=== PATIENT | male | born 1965 | race Caucasian/White ===

== ENCOUNTER 2019-05-27 13:35 | Emergency (ER) | payer SELFPAY ==
[2019-05-27 14:12] LABS: Absolute Lymphocytes (CBC) 0.9 K/uL (0.7-4.9); Basophils % 0.5 % (0-1.3); Eosinophils % 2.3 % (0-4.4); Hematocrit 39.8 % (39.6-49.0); Lymphocytes % 17.2 % (15.3-44.8); MPV 9.2 fL (7.6-11.3); Monocytes % 11.6 % (3.3-12.3); RBC Red Blood Cell Count 4.38 M/uL (4.33-5.43)
[2019-05-27] MEDS ORDERED: NA CHLORIDE 0.9% 1,000 ML ONE (14:13)
[2019-05-27 14:28] LABS: Potassium 3.2 mmol/L (3.5-5.1)
--- NOTE | 2019-05-27 15:06 | EDPHYS ---
Physician Documentation [facility] Name: Reggie Snow Age: 53 yrs Sex: Male : 1965 Arrival Date: 05/27/2019 Time: 13:38 Bed 7 Private MD: ED Physician Cory Coates HPI: 05/27 14:58 This 53 yrs old Male presents to ER via EMS with complaints of Altered Mental gs Status. 14:58 The patient presents with decreased mental status. Onset: The symptoms/episode gs began/occurred gradually, today. Possible causes: drug use, heat exhaustion was in heat and no ac in house. Associated signs and symptoms: The patient has no apparent associated signs or symptoms. Current symptoms: In the emergency department the patient's symptoms have resolved, the patient is alert and fully oriented, has normal speech, has normal responsiveness, has no confusion. The patient has experienced similar episodes in the past, a few times. The patient has not recently seen a physician. 17:47 Onset: The symptoms/episode began/occurred discussed with daughter and onset of gs symptoms last night. Historical: - Allergies: 13:41 TETRACYCLINES; sv 13:41 Azithromycin; sv - Home Meds: 14:31 benztropine 1 mg Oral tab 1 tab 2 times per day [Active]; risperidone 2 mg oral tab 1 iw tab once daily [Active]; bupropion HCl 300 mg Oral Tb24 1 tab once daily [Active]; - PMHx: 13:41 None; sv - PSHx: 13:41 Tonsillectomy; sv - Immunization history:: Adult Immunizations unknown. - Social history:: The patient lives at home, Smoking status: Patient/guardian denies using tobacco. - Ebola Screening: : No symptoms or risks identified at this time. ROS: 14:58 All other systems are negative. gs Exam: 14:58 Head/Face: Normocephalic, atraumatic. Eyes: Pupils equal round and reactive to light, gs extra-ocular motions intact. Lids and lashes normal. Conjunctiva and sclera are non-icteric and not injected. Cornea within normal limits. Periorbital areas with no swelling, redness, or edema. ENT: Nares patent. No nasal discharge, no septal abnormalities noted. Tympanic membranes are normal and external auditory canals are clear. Oropharynx with no redness, swelling, or masses, exudates, or evidence of obstruction, uvula midline. Mucous membranes moist. Neck: Trachea midline, no thyromegaly or masses palpated, and no cervical lymphadenopathy. Supple, full range of motion without nuchal rigidity, or vertebral point tenderness. No Meningismus. Chest/axilla: Normal chest wall appearance and motion. Nontender with no deformity. No lesions are appreciated. Respiratory: Lungs have equal breath sounds bilaterally, clear to auscultation and percussion. No rales, rhonchi or wheezes noted. No increased work of breathing, no retractions or nasal flaring. Abdomen/GI: Soft, non-tender, with normal bowel sounds. No distension or tympany. No guarding or rebound. No evidence of tenderness throughout. Back: No spinal tenderness. No costovertebral tenderness. Full range of motion. Skin: Warm, dry with normal turgor. Normal color with no rashes, no lesions, and no evidence of cellulitis. MS/ Extremity: Pulses equal, no cyanosis. Neurovascular intact. Full, normal range of motion. Neuro: Awake and alert, GCS 15, oriented to person, place, time, and situation. Cranial nerves II-XII grossly intact. Motor strength 5/5 in all extremities. Sensory grossly intact. Cerebellar exam normal. Normal gait. 14:58 Constitutional: The patient appears alert, awake. 14:58 Cardiovascular: Rate: tachycardic, Rhythm: regular, Pulses: no pulse deficits are appreciated. Vital Signs: 13:48 BP 134 / 75; Pulse 130; Resp 16; Temp 98.4(O); Pulse Ox 98% on R/A; tr5 14:42 BP 114 / 85; Pulse 105; Resp 17; Pulse Ox 96% ; sv 15:30 BP 130 / 96; Pulse 100; Resp 18; Pulse Ox 100% on R/A; tr5 17:00 BP 122 / 88; Pulse 99; Resp 18; Pulse Ox 99% ; sv MDM: 13:49 Patient medically screened. 14:58 Differential Diagnosis: overdose, volume depletion, heat exhaustion. Data reviewed: vital signs, nurses notes, lab test result(s), EKG. 17:47 Counseling: I had a detailed discussion with the patient and/or guardian regarding: the historical points, exam findings, and any diagnostic results supporting the discharge/admit diagnosis, radiology results, no stroke by mri pt awake alert most likely exacerbation psychosis family good with plan to follow up with [facility] pt is calm walking normally family comfortable with plan. Response to treatment: the patient's symptoms have markedly improved after treatment, the patient's condition has returned to base line. 05/27 13:38 Order name: glucometer results - FOR PT WITH NO ID; Complete Time: 15:04 05/27 13:54 Order name: CBC with Diff; Complete Time: 15:04 05/27 13:54 Order name: Basic Metabolic Panel; Complete Time: 15:04 05/27 13:54 Order name: CPK; Complete Time: 15:04 05/27 15:29 Order name: Troponin (emerg Dept Use Only); Complete Time: 16:27 05/27 15:29 Order name: Head Brain Wo Cont CT; Complete Time: 16:27 05/27 16:28 Order name: MRI - Brain Wo Cont; Complete Time: 17:31 eb Administered Medications: 14:00 Drug: NS 0.9% 1000 ml Route: IV; Rate: 1 bolus; Site: left antecubital; tr5 14:45 Follow up: Response: No adverse reaction; IV Status: Completed infusion tr5 Point of Care Testing: Blood Glucose: 13:48 Blood Glucose: 122 mg/dL; tr5 Ranges: Critical Glucose Levels:Adult <50 mg/dl or >400 mg/dl <40 mg/dl or >180 mg/dl Disposition: 05/27/19 17:56 Discharged to Home. Impression: Schizophrenia. - Condition is Stable. - Discharge Instructions: Schizophrenia. - Medication Reconciliation Form, Thank You Letter, Antibiotic Education, Prescription Opioid Use form. - Follow up: Private Physician; When: 1 - 2 days; Reason: Re-evaluation by your physician. Signatures: Dispatcher [employer] Alcira Brownlee RN RN sv Williams, Irene, RN RN Cory Coates MD MD Ki Gonzáles RN RN tr5 Corrections: (The following items were deleted from the chart) 15:28 15:05 05/27/2019 15:05 Discharged to Home. Impression: Heat exhaustion, unspecified. Condition is Stable. Forms are Medication Reconciliation Form, Thank You Letter, Antibiotic Education, Prescription Opioid Use. Follow up: Private Physician; When: 2 - 3 days; Reason: Re-evaluation by your physician. 18:46 17:56 05/27/2019 17:56 Discharged to Home. Impression: Schizophrenia. Condition is sv Stable. Forms are Medication Reconciliation Form, Thank You Letter, Antibiotic Education, Prescription Opioid Use. Follow up: Private Physician; When: 1 - 2 days; Reason: Re-evaluation by your physician.
--- NOTE | 2019-05-27 15:06 | ER ---
Nurse's Notes [facility] Name: Reggie Snow Age: 53 yrs Sex: Male : 1965 Arrival Date: 05/27/2019 Time: 13:38 Bed 7 Private MD: Diagnosis: Schizophrenia Presentation: 05/27 13:38 Presenting complaint: EMS states: Pt was found wondering around apartment complex where sv he lives with his mother. Pt is and has been experiencing some hallucinations and pt's mother states that she thinks he might have taken something black that might be heroin but it can't be confirmed. Pt's mother reports that he does take some psych medications and they make him "crazy" sometimes. Pt was AAOx2 and had a pulse of 160. 500cc bolus given in route which brought his pulse to 130. Transition of care: patient was not received from another setting of care. Onset of symptoms is unknown. Risk Assessment: Do you want to hurt yourself or someone else? Unable to obtain. Initial Sepsis Screen: Does the patient meet any 2 criteria? Altered Mental Status. HR > 90 bpm. No. Patient's initial sepsis screen is negative. Does the patient have a suspected source of infection? No. Patient's initial sepsis screen is negative. Care prior to arrival: None. 13:38 Method Of Arrival: EMS: [facility] 13:38 Acuity: ERICK 3 sv Triage Assessment: 13:43 General: Appears unkempt, Behavior is inappropriate for age. Pain: Denies pain. EENT: sv No signs and/or symptoms were reported regarding the EENT system. Neuro: Level of Consciousness is awake, alert, confused, Oriented to person, place, Tip Tester are equal bilaterally Moves all extremities. Cardiovascular: Heart tones present Bruits absent Capillary refill < 3 seconds Pulses are all present. Edema is absent. Chest pain is denied. Respiratory: Airway is patent Breath sounds are clear bilaterally. GI: No signs and/or symptoms were reported involving the gastrointestinal system. : No signs and/or symptoms were reported regarding the genitourinary system. Derm: No signs and/or symptoms reported regarding the dermatologic system. Musculoskeletal: Capillary refill < 3 seconds, Range of motion: intact in all extremities. Historical: - Allergies: 13:41 TETRACYCLINES; sv 13:41 Azithromycin; sv - Home Meds: 14:31 benztropine 1 mg Oral tab 1 tab 2 times per day [Active]; risperidone 2 mg oral tab 1 iw tab once daily [Active]; bupropion HCl 300 mg Oral Tb24 1 tab once daily [Active]; - PMHx: 13:41 None; sv - PSHx: 13:41 Tonsillectomy; sv - Immunization history:: Adult Immunizations unknown. - Social history:: The patient lives at home, Smoking status: Patient/guardian denies using tobacco. - Ebola Screening: : No symptoms or risks identified at this time. Screenin:48 Abuse screen: Denies threats or abuse. Nutritional screening: No deficits noted. tr5 Tuberculosis screening: No symptoms or risk factors identified. Fall Risk No fall in past 12 months (0 pts). No secondary diagnosis (0 pts). IV access (20 points). Ambulatory Aid- None/Bed Rest/Nurse Assist (0 pts). Gait- Normal/Bed Rest/Wheelchair (0 pts) Mental Status- Overestimates/Forgets Limitations (15 pts.). Total Dobbins Fall Scale indicates Low Risk Score (25-44 pts). Fall prevention measures have been instituted. Side Rails Up X 2 Frequent Obs/Assesments occuring. Assessment: 13:46 General: General: Appears unkempt, Behavior is inappropriate for age. tr5 13:46 Pain: Denies pain. Neuro: Level of Consciousness is awake, alert, confused, Oriented to tr5 person, place, Tip Tester are equal bilaterally Moves all extremities. Cardiovascular: Denies chest pain, Heart tones present Capillary refill < 3 seconds Pulses are all present. Edema is absent. Respiratory: Airway is patent Breath sounds are clear bilaterally. GI: No signs and/or symptoms were reported involving the gastrointestinal system. : No signs and/or symptoms were reported regarding the genitourinary system. EENT: No signs and/or symptoms were reported regarding the EENT system. Derm: No signs and/or symptoms reported regarding the dermatologic system. Musculoskeletal: Capillary refill < 3 seconds. 15:26 Reassessment: Dr. Coates at bedside discussing pt's plan of care with family members. tr5 Further testing to be ordered. 16:11 Reassessment: Patient appears in no apparent distress at this time. tr5 18:43 Reassessment: Patient appears in no apparent distress at this time. Patient and/or sv family updated on plan of care and expected duration. Pain level reassessed. Patient is alert, oriented x 3, equal unlabored respirations, skin warm/dry/pink. Vital Signs: 13:48 BP 134 / 75; Pulse 130; Resp 16; Temp 98.4(O); Pulse Ox 98% on R/A; tr5 14:42 BP 114 / 85; Pulse 105; Resp 17; Pulse Ox 96% ; sv 15:30 BP 130 / 96; Pulse 100; Resp 18; Pulse Ox 100% on R/A; tr5 17:00 BP 122 / 88; Pulse 99; Resp 18; Pulse Ox 99% ; sv ED Course: 13:35 Initial lab(s) drawn, by me. Maintain EMS IV. Dressing intact. Good blood return noted. sv Site clean \\T\\ dry. Gauge \\T\\ site: 18G L AC. 13:38 Patient arrived in ED. sv 13:40 Cory Coates MD is Attending Physician. jr8 13:40 Patient has correct armband on for positive identification. Bed in low position. Call sv light in reach. Side rails up X2. stripper soft plastic on. Pulse ox on. NIBP on. Door closed. Head of bed elevated. 13:43 Triage completed. sv 13:43 Arm band placed on. EKG completed in triage. Results shown to MD. sv 13:45 iK Gonzáles, RN is Primary Nurse. tr5 15:50 CT completed. Patient tolerated procedure well. Patient moved to CT via stretcher. em2 15:52 Head Brain Wo Cont CT In Process Unspecified. EDMS 15:52 Patient moved back from CT. em2 16:50 MRI - Brain Wo Cont In Process Unspecified. EDMS 18:44 No provider procedures requiring assistance completed. IV discontinued, Pt removed his sv own IV. Administered Medications: 14:00 Drug: NS 0.9% 1000 ml Route: IV; Rate: 1 bolus; Site: left antecubital; tr5 14:45 Follow up: Response: No adverse reaction; IV Status: Completed infusion tr5 Point of Care Testing: Blood Glucose: 13:48 Blood Glucose: 122 mg/dL; tr5 Ranges: Outcome: 15:05 Discharge ordered by . gs 17:56 Discharge ordered by . gs 18:45 Discharged to home ambulatory, with family. sv 18:45 Condition: stable 18:45 Discharge instructions given to patient, family, Instructed on discharge instructions, follow up and referral plans. Demonstrated understanding of instructions, follow-up care. 18:46 Patient left the ED. sv Signatures: Dispatcher [employer] Alcira Brownlee RN RN sv Williams, Irene, RN RN iw Roszak, Josh, PA PA jr8 Montes, Enrique 2 Cory Coates MD MD gs Rodriguez, Tommie, RN RN tr5 Corrections: (The following items were deleted from the chart) 13:46 13:38 Presenting complaint: EMS states: Pt was found wondering around apartment complex tr5 where he lives with his mother. Pt is and has been experiencing some hallucinations and pt's mother states that she thinks he might have taken something black that might be heroin but it can't be confirmed. Pt was AAOx2 and had a pulse of 160. 500cc bolus given in route which brought his pulse to 130. sv 13:48 13:46 General: tr5 tr5
--- NOTE | 2019-05-27 16:12 | RAD REPORT ---
EXAM DESCRIPTION: CT - Head Brain Wo Cont - 05/27/2019 3:52 pm CLINICAL HISTORY: Alteration of awareness/confusion COMPARISON: None TECHNIQUE: Computed axial tomography of the head was obtained. IV contrast was not requested. All CT scans are performed using dose optimization technique as appropriate and may include automated exposure control or mA/KV adjustment according to patient size. FINDINGS: An intracranial bleed is not seen . The ventricles are normal in caliber. No extra-axial fluid collection is noted. Fluid within the sinuses/ mastoids is not seen. IMPRESSION: No acute intracranial abnormality is seen. If patient's symptoms persist MRI of the bra in would be recommended.
--- NOTE | 2019-05-27 17:06 | RAD REPORT ---
EXAM DESCRIPTION: MRI - Brain Wo Cont - 05/27/2019 4:57 pm CLINICAL HISTORY: confusion COMPARISON: May 27, [address] TECHNIQUE: Axial, sagittal, and coronal magnetic images of the brain were obtained. Contrast was not requested FINDINGS: 8 millimeter area of increased signal within the deep white matter of the left frontal lob e is nonspecific but may represent ischemic changes secondary to small vessel disease. . Diffusion-weighted/ADC mapping does not reveal evidence of acute infarction. The ventricles are normal caliber. An extra-axial fluid collection is not present The sinuses and mastoids are clear. IMPRESSION: No acute abnormality displayed
[2019-05-27 19:26] VITALS: TEMP 98.4
[2019-05-27 19:30] VITALS: BP 122/88; O2SAT 99
--- NOTE | 2019-05-28 08:27 | EKG ---
Test Date: 2019-05-27 Test Time: 13:38:05 [employer] Teacher: MIRELA MEASUREMENT RESULTS: Intervals: Rate: 128 GA: 152 QRSD: 90 QT: 300 QTc: 438 [place]: P: 69 GA: 152 QRS: -22 T: 67 INTERPRETIVE STATEMENTS: Sinus tachycardia Otherwise normal ECG Compared to ECG 06/23/2015 12:32:21 Sinus rhythm no longer present Sinus arrhythmia no longer present Electronically Signed On 05-28-19 08:25:01 CDT by Gaetano Henry
== END 2019-05-27 18:46 | disposition home or self-care (01) ==
LOC: ER 13:35
DX: F20.9 Schizophrenia, unspecified (principal); Z88.1 Allergy status to other antibiotic agents
CPT/HCPCS: 36415; 70450; 70551; 80048; 82550; 82962; 84484; 85025; 93005; 96360; 99285; J7030

== ENCOUNTER 2019-07-12 03:53 | Emergency (ER) | payer SELFPAY ==
[2019-07-12 04:58] LABS: Basophils % 0.7 % (0-1.3); Hematocrit 40.4 % (39.6-49.0); Lymphocytes % 25.9 % (15.3-44.8); MPV 8.7 fL (7.6-11.3); RBC Red Blood Cell Count 4.43 M/uL (4.33-5.43)
[2019-07-12 05:19] LABS: Albumin 3.9 g/dL (3.4-5.0); Bilirubin Direct 0.2 mg/dL (0-0.2); Bilirubin Total 0.6 mg/dL (0.2-1.0); Potassium 3.9 mmol/L (3.5-5.1); Protein, Total 7.2 g/dL (6.4-8.2)
[2019-07-12 05:54] LABS: Calcium Oxalate Crystals- Ur FEW (NONE SEEN); Urine Bacteria <20 /HPF (NONE SEEN); Urine Culture Reflex Order NOT NEEDED; Urine RBC NONE SEEN /HPF (NONE SEEN)
[2019-07-12 06:09] LABS: Urine Blood NEGATIVE (NEG); Urine Glucose NEGATIVE (NEG); Urine Protein NEGATIVE (NEG); Urine pH 8.5 (5.0-7.0)
--- NOTE | 2019-07-12 06:31 | ER ---
Nurse's Notes [facility] Name: Reggie Snow Age: 54 yrs Sex: Male : 1965 Arrival Date: 07/12/2019 Time: 04:17 Bed 20 Private MD: Diagnosis: Lower abdominal pain, unspecified Presentation: 07/12 03:55 Presenting complaint: EMS states: "We were toned for abdominal pain, distention and cc3 belching that started just an hour ago prior to our arrival" Patient said he also has chest pain and right flank pain and took low dose Aspirin at 0300H this morning at home. Transition of care: patient was not received from another setting of care. Onset of symptoms was July 12, 2019. Risk Assessment: Do you want to hurt yourself or someone else? Patient reports no desire to harm self or others. Initial Sepsis Screen: Does the patient meet any 2 criteria? No. Patient's initial sepsis screen is negative. Does the patient have a suspected source of infection? No. Patient's initial sepsis screen is negative. Care prior to arrival: Medication(s) given: Low dose Aspirin taken at 0300H this morning at home. 03:55 Method Of Arrival: EMS: [facility] cc3 03:55 Acuity: ERICK 3 cc3 Triage Assessment: 03:55 General: Appears in no apparent distress. uncomfortable, Behavior is cooperative, cc3 anxious. Pain: Complains of pain in bilateral upper and lower abdominal quadrants, chest, right flank Pain currently is 8 out of 10 on a pain scale. Quality of pain is described as aching, Pain began 1 hour ago. EENT: No signs and/or symptoms were reported regarding the EENT system. Neuro: Level of Consciousness is awake, alert, obeys commands, Oriented to person, place, time, situation, Appropriate for age. Cardiovascular: Capillary refill < 3 seconds Patient's skin is warm and dry. Chest pain is located in chest wall began 1 hour prior to arrival. Respiratory: Airway is patent Respiratory effort is even, unlabored, Respiratory pattern is regular, symmetrical. GI: Parent/caregiver reports the patient having bloating, gaseousness, pain, since an hour ago. : No signs and/or symptoms were reported regarding the genitourinary system. Derm: Skin is intact, is healthy with good turgor, Skin is pink, warm \\T\\ dry. normal. Musculoskeletal: Circulation, motion, and sensation intact. Range of motion: intact in all extremities. Historical: - Allergies: 03:55 Azithromycin; cc3 03:55 TETRACYCLINES; cc3 - Home Meds: 03:55 benztropine 1 mg Oral tab 1 tab 2 times per day [Active]; bupropion HCl 300 mg Oral cc3 Tb24 1 tab once daily [Active]; risperidone 2 mg Oral tab 1 tab once daily [Active]; - PMHx: 03:55 Anxiety; Hypertension; cc3 - Immunization history:: Adult Immunizations not up to date. - Social history:: Smoking status: Patient/guardian denies using tobacco, but has a distant history of tobacco abuse. - Ebola Screening: : No symptoms or risks identified at this time. Screenin:55 Abuse screen: Denies threats or abuse. Denies injuries from another. Nutritional cc3 screening: No deficits noted. Tuberculosis screening: No symptoms or risk factors identified. Fall Risk Ambulatory Aid- None/Bed Rest/Nurse Assist (0 pts). Gait- Normal/Bed Rest/Wheelchair (0 pts) Mental Status- Oriented to own ability (0 pts). Assessment: 03:55 General: see triage assessment. cc3 04:30 Reassessment: Patient appears in no apparent distress at this time. Patient and/or aa1 family updated on plan of care and expected duration. Pain level reassessed. Patient is alert, oriented x 3, equal unlabored respirations, skin warm/dry/pink. 05:12 Reassessment: Patient appears in no apparent distress at this time. Patient and/or aa1 family updated on plan of care and expected duration. Pain level reassessed. Patient is alert, oriented x 3, equal unlabored respirations, skin warm/dry/pink. Patient came back from CT scan department, awaiting result. 06:50 Reassessment: Patient appears in no apparent distress at this time. Patient and/or cc3 family updated on plan of care and expected duration. Pain level reassessed. Patient is alert, oriented x 3, equal unlabored respirations, skin warm/dry/pink. Dr. Coates discharged the patient home with prescription given. IV cannula removed and patient left ER vitally stable and ambulatory with family. No valuables left in the patient's room. Patient denies pain at this time. Patient states feeling better. Patient states symptoms have improved. Vital Signs: 03:55 BP 132 / 82; Pulse 79; Resp 22 S; Temp 97.8(O); Pulse Ox 100% on R/A; Weight 61.23 kg cc3 (R); Height 6 ft. 2 in. (187.96 cm) (R); Pain 8/10; 04:15 BP 154 / 90; Pulse 79; Resp 18 S; Pulse Ox 100% on R/A; aa1 05:25 BP 134 / 88; Pulse 79; Resp 17 S; Pulse Ox 98% on R/A; aa1 06:11 BP 125 / 81; Pulse 80; Resp 18 S; Pulse Ox 98% on R/A; cc3 03:55 Body Mass Index 17.33 (61.23 kg, 187.96 cm) cc3 ED Course: 03:55 Patient has correct armband on for positive identification. Placed in gown. Bed in low cc3 position. Call light in reach. Side rails up X2. injection maintenance technician on. Pulse ox on. NIBP on. 03:55 Arm band placed on right wrist. Patient notified of wait time. EKG completed in triage. cc3 Results shown to MD. 04:17 Patient arrived in ED. cc3 04:20 Inserted saline lock: 20 gauge in left antecubital area, using aseptic technique. Blood aa1 collected. 04:22 Triage completed. cc3 04:30 Blossom Majano is Primary Nurse. cc3 04:40 Cory Coates MD is Attending Physician. 05:18 CT completed. Patient tolerated procedure well. Patient moved to CT via stretcher. Patient moved back from CT. 05:28 CT Stone Protocol In Process Unspecified. EDMS 06:50 No provider procedures requiring assistance completed. IV discontinued, intact, cc3 bleeding controlled, No redness/swelling at site. Pressure dressing applied. Administered Medications: No medications were administered Outcome: 06:30 Discharge ordered by MD. gs 06:45 Discharged to home ambulatory, with family. cc3 06:45 Condition: stable 06:45 Discharge instructions given to patient, family, Instructed on discharge instructions, follow up and referral plans. medication usage, Demonstrated understanding of instructions, follow-up care, medications, Prescriptions given X 1. 06:46 Patient left the ED. cc3 Signatures: Dispatcher [employer] EDMS Geni Gaxiola RN RN aa1 Isai Huff Gregory, MD MD gs Cordel, Charlene cc3 Corrections: (The following items were deleted from the chart) 04:29 03:55 Presenting complaint: EMS states: "Abdominal pain, distention and belching that cc3 started just 30 minutes ago" Patient said he also has chest pain and right flank pain. cc3 04:29 03:55 Pain: Complains of pain in bilateral upper and lower abdominal quadrants, chest, cc3 right flank Pain currently is 8 out of 10 on a pain scale. Quality of pain is described as aching, Pain began 30 min ago. cc3 04:35 03:55 Presenting complaint: EMS states: "Abdominal pain, distention and belching that cc3 started just an hour ago prior to our arrival" Patient said he also has chest pain and right flank pain. cc3 04:54 04:20 Inserted saline lock: 20 gauge in left antecubital area, using aseptic technique. aa1 cc3
--- NOTE | 2019-07-12 06:31 | EDPHYS ---
Physician Documentation [facility] Name: Reggie Snow Age: 54 yrs Sex: Male : 1965 Arrival Date: 07/12/2019 Time: 04:17 Bed 20 Private MD: ED Physician Cory Coates HPI: 07/12 06:10 This 54 yrs old Male presents to ER via EMS with complaints of Abdominal Pain.gs 06:10 The patient presents with abdominal pain in the lower abdomen. Onset: The gs symptoms/episode began/occurred gradually, this morning. The symptoms radiate to epigastric area. The symptoms are described as burning. Modifying factors: The symptoms are alleviated by BURPING. Severity of pain: At its worst the pain was severe in the emergency department the pain has improved markedly. The patient has experienced similar episodes in the past, a few times. Historical: - Allergies: 03:55 Azithromycin; cc3 03:55 TETRACYCLINES; cc3 - Home Meds: 03:55 benztropine 1 mg Oral tab 1 tab 2 times per day [Active]; bupropion HCl 300 mg Oral cc3 Tb24 1 tab once daily [Active]; risperidone 2 mg Oral tab 1 tab once daily [Active]; - PMHx: 03:55 Anxiety; Hypertension; cc3 - Immunization history:: Adult Immunizations not up to date. - Social history:: Smoking status: Patient/guardian denies using tobacco, but has a distant history of tobacco abuse. - Ebola Screening: : No symptoms or risks identified at this time. ROS: 06:10 All other systems are negative. gs Exam: 06:10 Head/Face: Normocephalic, atraumatic. Eyes: Pupils equal round and reactive to light, gs extra-ocular motions intact. Lids and lashes normal. Conjunctiva and sclera are non-icteric and not injected. Cornea within normal limits. Periorbital areas with no swelling, redness, or edema. ENT: Nares patent. No nasal discharge, no septal abnormalities noted. Tympanic membranes are normal and external auditory canals are clear. Oropharynx with no redness, swelling, or masses, exudates, or evidence of obstruction, uvula midline. Mucous membranes moist. Neck: Trachea midline, no thyromegaly or masses palpated, and no cervical lymphadenopathy. Supple, full range of motion without nuchal rigidity, or vertebral point tenderness. No Meningismus. Chest/axilla: Normal chest wall appearance and motion. Nontender with no deformity. No lesions are appreciated. Cardiovascular: Regular rate and rhythm with a normal S1 and S2. No gallops, murmurs, or rubs. Normal PMI, no JVD. No pulse deficits. Respiratory: Lungs have equal breath sounds bilaterally, clear to auscultation and percussion. No rales, rhonchi or wheezes noted. No increased work of breathing, no retractions or nasal flaring. Back: No spinal tenderness. No costovertebral tenderness. Full range of motion. Skin: Warm, dry with normal turgor. Normal color with no rashes, no lesions, and no evidence of cellulitis. MS/ Extremity: Pulses equal, no cyanosis. Neurovascular intact. Full, normal range of motion. Neuro: Awake and alert, GCS 15, oriented to person, place, time, and situation. Cranial nerves II-XII grossly intact. Motor strength 5/5 in all extremities. Sensory grossly intact. Cerebellar exam normal. Normal gait. 06:10 Constitutional: The patient appears in no acute distress, alert, awake. 06:10 ECG was reviewed by the Attending Physician. Vital Signs: 03:55 BP 132 / 82; Pulse 79; Resp 22 S; Temp 97.8(O); Pulse Ox 100% on R/A; Weight 61.23 kg cc3 (R); Height 6 ft. 2 in. (187.96 cm) (R); Pain 8/10; 04:15 BP 154 / 90; Pulse 79; Resp 18 S; Pulse Ox 100% on R/A; aa1 05:25 BP 134 / 88; Pulse 79; Resp 17 S; Pulse Ox 98% on R/A; aa1 06:11 BP 125 / 81; Pulse 80; Resp 18 S; Pulse Ox 98% on R/A; cc3 03:55 Body Mass Index 17.33 (61.23 kg, 187.96 cm) cc3 MDM: 04:40 Patient medically screened. gs 06:10 Differential diagnosis: AAA, bowel obstruction, diverticulitis, non-specific abd pain. gs Data reviewed: vital signs, nurses notes. Data reviewed: lab test result(s), EKG, radiologic studies. Counseling: I had a detailed discussion with the patient and/or guardian regarding: the historical points, exam findings, and any diagnostic results supporting the discharge/admit diagnosis, lab results, radiology results. Response to treatment: the patient's symptoms have resolved after treatment, the patient's condition has returned to base line. 07/12 04:41 Order name: Basic Metabolic Panel; Complete Time: 05:51 07/12 04:41 Order name: CBC with Diff; Complete Time: 05:51 07/12 04:41 Order name: Hepatic Function; Complete Time: 05:51 07/12 04:41 Order name: Lipase; Complete Time: 05:51 07/12 04:41 Order name: Urine Microscopic Only; Complete Time: 05:55 07/12 05:37 Order name: Urine Dipstick--Ancillary (enter results); Complete Time: 06:09 ct 07/12 04:41 Order name: IV Saline Lock; Complete Time: 04:41 07/12 04:41 Order name: Labs collected and sent; Complete Time: 04:53 07/12 04:41 Order name: Urine Dipstick-Ancillary (obtain specimen); Complete Time: 05:39 07/12 04:41 Order name: CT Stone Protocol EC:10 Rate is 85 beats/min. Rhythm is regular. NV interval is normal. QRS interval is normal. gs T waves are Normal. No ST changes noted. Clinical impression: Normal ECG. Interpreted by me. Administered Medications: No medications were administered Disposition: 07/12/19 06:30 Discharged to Home. Impression: Lower abdominal pain, unspecified. - Condition is Stable. - Discharge Instructions: Abdominal Pain, Adult. - Prescriptions for Miralax 17 gram/dose Oral - take 1 packet by ORAL route once daily As needed dilute powder in 8 ounces of water or juice; 1 bottle. - Medication Reconciliation Form, Thank You Letter, Antibiotic Education, Prescription Opioid Use form. - Follow up: Private Physician; When: 2 - 3 days; Reason: Re-evaluation by your physician. Signatures: Dispatcher [employer] EDIN Cory Coates MD MD gs Cordel, Charlene cc3 Corrections: (The following items were deleted from the chart) 06:46 06:30 07/12/2019 06:30 Discharged to Home. Impression: Lower abdominal pain, cc3 unspecified. Condition is Stable. Forms are Medication Reconciliation Form, Thank You Letter, Antibiotic Education, Prescription Opioid Use. Follow up: Private Physician; When: 2 - 3 days; Reason: Re-evaluation by your physician. gs
[2019-07-12 06:58] VITALS: TEMP 97.8
[2019-07-12 07:01] VITALS: O2SAT 98
[2019-07-12 07:03] VITALS: BP 125/81
--- NOTE | 2019-07-12 09:45 | RAD REPORT ---
EXAM DESCRIPTION: RENETTA BLAIR [id number] - Stone Protocol CT ABDOMEN AND PELVIS WITHOUT CONTRAST. 07/12/2019 CLINICAL HISTORY: Abdominal pain. COMPARISON: None. TECHNIQUE: Axial unenhanced CT imaging of the abdomen and pelvis performed. Reformatted coronal and sagittal images reviewed. A dose reduction technique was utilized with automated exposure control according to patient size. FINDINGS: LOWER THORAX: Clear lung bases. Normal heart size. No pericardial fluid. ABDOMEN: LIVER/GALLBLADDER: Normal liver and gallbladder. SPLEEN/PANCREAS: Normal spleen. Normal pancreas. KIDNEYS/ADRENAL GLANDS: Normal adrenal glands. Normal right and left kidney. RETROPERITONEAL VESSELS/NODES: Normal aorta and inferior vena cava caliber. No adenopathy. BOWEL: Small hiatal hernia. Normal remaining stomach. Unremarkable small bowel. Appendix is normal i n caliber in the right lower quadrant with a few appendicoliths. No evidence of appendicitis. Moderat e fecal loading throughout the colon. MESENTERY/PERITONEUM: No adenopathy, ascites or free air. PELVIS: BLADDER/GENITAL ORGANS: Bladder contains a few dependent stones. No perivesicle edema. The prostate is 5.1 x 3.7 x 4.4 cm. Dystrophic prostatic calcifications are present. PERITONEUM: No pelvic free fluid or adenopathy. BONES AND SOFT TISSUES: Unremarkable lumbar spine. Intact bony pelvis. Normal hips. IMPRESSION: 1. Small hiatal hernia. 2. Constipation. 3. Bladder stones without evidence of cystitis. No proximal hydronephrosis. 4. Appendicoliths with no evidence of appendicitis. 5. Prostatomegaly.. Electronically signed by: Yasemin Us DO 07/12/2019 5:35 AM CDT Due to temporary technical issues with the PACS/Fluency reporting system, reports are being signed by the in house radiologist as a courtesy to ensure prompt reporting. The interpreting radiologist is f ully responsible for the content of the report.
--- NOTE | 2019-07-12 10:41 | EKG ---
Test Date: 2019-07-12 Test Time: 04:07:33 Curb Hop: JULIAN MEASUREMENT RESULTS: Intervals: Rate: 85 NV: 144 QRSD: 88 QT: 348 QTc: 414 Ford: P: 65 NV: 144 QRS: -4 T: 64 INTERPRETIVE STATEMENTS: Normal sinus rhythm Normal ECG Compared to ECG 05/27/2019 13:38:05 Sinus tachycardia no longer present Electronically Signed On 07-12-19 10:40:01 CDT by Zurdo Phillips
== END 2019-07-12 06:46 | disposition home or self-care (01) ==
LOC: ER 03:53
DX: R10.30 Lower abdominal pain, unspecified (principal); F41.9 Anxiety disorder, unspecified; I10 Essential (primary) hypertension; Z87.891 Personal history of nicotine dependence; Z88.1 Allergy status to other antibiotic agents
CPT/HCPCS: 36415; 74176; 76377; 80048; 80076; 81003; 81015; 83690; 85025; 93005; 99285

== ENCOUNTER 2025-07-20 13:15 | Emergency (ER) | payer OTHER, SELFPAY ==
--- OUTSIDE RECORDS SUMMARY | 2025-07-20 13:28 | XMS REPORT | Continuity of Care Document ---
Author Name Unknown Address [address] [facility] [address] [place] [address] [facility] Address [address] [facility] [address] [facility] [address] [place] [address] Care Team Providers Care Direct Response Consultant Name Role Phone Taz GRIJALVA, [facility] Primary Care Physician [phone] JASKARAN GREGG Attending Clinician Unavail able JASKARAN GREGG Attending Clinician Unavail able Jaskaran Gregg MD Attending Clinician [phone] Doctor Unassigned, [place] Attending Clinician U ESAU Pack Attending Clinician Unavailable Service/[place], Surgery C Attending Clinician U Gabo Miner MD Attending Clinician [phone] GABO NAIK Attending Clinician Unavailable Nitin Killian DO Attending Clinician [phone] Natali Vicente MD Attending Clinician [phone] Emely Ivan MD Attending Clinician + [phone] Gil Kidd DO Attending Clinician [phone] Crow Raines MD Attending Clinician [phone] CROW RAINES Attending Clinician Unavailable JOSELUIS CHRISTIANSON Attending Clinician Unavail able MAXIMO SALOMON Attending Clinician Unavailable RODO CHIN Admitting Clinician U JASKARAN Olivas Admitting Clinician Unavail able GABO NAIK Admitting Clinician Unavailable Gabo Naik MD Admitting Clinician [phone] Crow Raines MD Admitting Clinician [phone] CROW RAINES Admitting Clinician Unavailable Payers Payer Name Policy Type Policy Number Effective Date Expirati on Date Source CATHERINE HA [id number] 2024 00:00:00 Problems Condition Name Condition Details Condition Category Status Onset Date Resolution Date Last Treatment Date Treating Clinician Comments Source History of claustroph obia History of claustroph obia Disease Active 03-01 00:00: 00 [facility] Acute cholecysti tis Acute cholecysti tis Disease Active 2021-12 00:00: 00 [facility] Primary hypertensi on Primary hypertensi on Disease Active 05-07 00:00: 00 [facility] History of transient ischemic attack (TIA) History of transient ischemic attack (TIA) Disease Active 05-07 00:00: 00 [facility] Chest pain Chest pain Disease Active 01-22 00:00: 00 [facility] Allergies, Adverse Reactions, Alerts Allergy Name Allergy Type Status Severity Reaction(s) Onset Date Inactive Date Treating Clinician Comments Source erythrom ycin base Propensi ty to adverse reaction to drug Inactiv e 01-21 00:00: 00 Sammy Lang Tetracyc lines Propensi ty to adverse reaction to drug Inactiv e 01-09 00:00: 00 Sammy Lang Erythrom ycin Propensi ty to adverse reaction s Active Rash 06-13 00:00: 00 [facility] Tetracyc line Propensi ty to adverse reaction s Active Rash 06-13 00:00: 00 [facility] ERYTHROM YCIN DRUG Active Rash 06-13 00:00: 00 [facility] TETRACYC LINE DRUG INGREDI Active Rash 06-13 00:00: 00 [facility] NO KNOWN ALLERGIE S Drug Class Active [facility] Social History Social Habit Start Date Stop Date Quantity Comments [facility] History of tobacco use Passive smoker [facility] Alcoholic beverage intake 2025-07-04 00:00:00 2025-07-04 00:00:00 0 /d [facility] History of Social function 2025-07-04 00:00:00 2025-07-04 00:00:00 [facility] Exposure to SARS-CoV-2 (event) 2022-11-09 00:00:00 2022-11-19 10:44:00 Not sure [facility] Alcohol intake 2022-11-19 00:00:00 2022-11-19 00:00:00 0 /d [facility] Tobacco use and exposure 2022-11-07 00:00:00 2022-11-07 00:00:00 Smokeless tobacco non-user [facility] Education 2022-05-07 00:00:00 2022-05-07 00:00:00 13 [facility] Sex assigned at 1965 00:00:00 1965 00:00:00 [facility] Smoking Status Start Date Stop Date Source Never smoked tobacco [facility] Medications Ordered Medication Name Filled Medication Name Start Date Stop Date Current Medication? Ordering Clinician Indication Dosage Frequency Signature (SIG) Comments Components Source amlodipine 10 mg tablet 04-25 00:00: 00 Yes 1mg Sammy Lang atorvastati n 40 mg tablet 04-25 00:00: 00 Yes 1mg Sammy Lang tamsulosin 0.4 mg capsule 04-25 00:00: 00 Yes 2mg Sammy Lang LORazepam (ATIVAN) tablet 1 mg 03-01 14:30: 00 03-01 14:30 :00 No [id number] 1mg 1 mg, Oral, ONCE, 1 dose, On Fri03/01/25 at 0930, Routine [facility] atorvastati n 40 mg tablet 2-09 00:00: 00 Yes [facility] rOPINIRole 1 mg tablet 2-07 00:00: 00 07-11 00:00 :00 No 2mg 2 tablets. [facility] tamsulosin 0.4 mg 24 hr capsule 2025-0 1-27 00:00: 00 Yes TAKE 2 CAPSULES BY MOUTH DAILY DOSAGE INCREASE [facility] cetirizine 10 mg tablet 12-27 00:00: 00 07-11 00:00 :00 No 10mg Take 1 tablet by mouth in the morning. [facility] amLODIPine 10 mg tablet 12-18 00:00: 00 Yes 10mg Take 1 tablet by mouth in the morning. [facility] ropinirole 1 mg tablet 12-17 00:00: 00 Yes 1mg Sammy Lang ropinirole 0.25 mg tablet 2023-12 00:00: 00 Yes mg Sammy Lang sildenafil 100 mg tablet 2023-12 00:00: 00 Yes mg Sammy Lang amlodipine 10 mg tablet 2023-12 00:00: 00 Yes 1mg Sammy Lang telmisartan 40 mg tablet 2023-12 00:00: 00 Yes 1mg Sammy Lang atorvastati n 40 mg tablet 2023-12 00:00: 00 Yes 1mg Sammy Lang tamsulosin 0.4 mg capsule 2023-12 00:00: 00 Yes 2mg Sammy Lang cetirizine 10 mg tablet 2023-12 00:00: 00 Yes 1mg Sammy Lang sildenafil 100 mg tablet 2023-12 00:00: 00 Yes mg Sammy Lang telmisartan 40 mg tablet 2023-12 00:00: 00 Yes 1mg Sammy Lang tamsulosin 0.4 mg capsule 2023-12 00:00: 00 Yes 2mg Sammy Lang tamsulosin 0.4 mg capsule 2023-12 00:00: 00 Yes 1mg Sammy Lang benzonatate 200 mg capsule 2023-12 015 00:00: 00 Yes 1mg Sammy Lang ciprofloxac in 500 mg tablet 08-24 00:00: 00 Yes 1mg Sammy Lang tamsulosin 0.4 mg capsule 08-24 00:00: 00 Yes 1mg Sammy Lang amlodipine 10 mg tablet 2024-0 8-29 00:00: 00 Yes 1mg Sammy Lang atorvastati n 40 mg tablet 5-21 00:00: 00 Yes 1mg Sammy Lang amlodipine 10 mg tablet 5-16 00:00: 00 Yes 1mg Sammy Lang amlodipine 10 mg tablet 2-28 00:00: 00 Yes 1mg Sammy Lang amlodipine 5 mg tablet 2- 00:00: 00 Yes 1mg Sammy Lang amlodipine 5 mg tablet 01-23 00:00: 00 Yes 1mg Sammy Lang APPLY 1 PATCH EVERY 3 DAYS FOR DIZZINESS. 12-25 00:00: 00 03-24 00:00 :00 No 13 Sammy Lang TAKE 1 TABLET DAILY. 12-25 00:00: 00 03-24 00:00 :00 No 5 Sammy Lang pantoprazol e (PROTONIX) EC tablet 40 mg 2021-12 15:00: 00 Yes 40mg 40 mg, Oral, DAILY, First dose on Fri11/09/22 at 0900, Until Discontinu ed, Routine [facility] alum-mag hydroxide-s imeth (MAALOX PLUS / MAG-AL PLUS) 200-200-20 mg/5 mL suspension 30 mL 2021-12 00:19: 27 Yes 30mL 30 mL, Oral, Q6HPRN, Starting on Fri11/08/22 at 1819, Until Discontinu ed, Routine, Indigestio n [facility] HYDROcodone -acetaminop hen 5-325 mg tablet 2021-12 00:00: 00 07-11 00:00 :00 No [id number] 1{tbl} Take 1 tablet by mouth every 6 (six) hours as needed for Pain (scale 4-6) for up to 7 doses. Indication s: acute pain [facility] PLEASE SEE ATTACHED FOR DETAILED DIRECTIONS 2021-12 00:00: 00 03-24 00:00 :00 No Sammy Lang acetaminoph en (TYLENOL) tablet 500 mg 2021-12 20:00: 00 Yes 500mg 500 mg, Oral, Q8H, First dose (after last modificati on) on Fri11/08/22 at 1400, Until Discontinu ed, Routine [facility] lactated ringers IV infusion 1,000 mL 2021-12 18:15: 00 Yes 1000mL at 75 mL/hr, 1,000 mL, IV Infusion, CONTINUOUS , Starting on Fri11/08/22 at 1215, Until Discontinu ed, Routine, PACU [facility] HYDROcodone -acetaminop hen (NORCO 5) 5-325 mg tablet 1 tablet 2021-12 18:15: 00 11-08 18:43 :00 No 1{tbl} 1 tablet, Oral, ONCE, 1 dose, On Fri11/08/22 at 1215, Routine, PACU [facility] methocarbam oL (ROBAXIN) tablet 500 mg 2021-12 18:00: 00 Yes 500mg 500 mg, Oral, QID, First dose on Fri11/08/22 at 1200, Until Discontinu ed, Routine [facility] D5W 0.45% NaCl (1/2NS) 1 L + KCL 20 mEq 2021-12 17:45: 00 Yes IV Infusion, at 42 mL/hr, CONTINUOUS , Starting on Fri11/08/22 at 1145, Until Discontinu ed, Routine [facility] HYDROcodone -acetaminop hen (NORCO 5) 5-325 mg tablet 1 tablet 2021-12 17:39: 34 Yes 1{tbl} 1 tablet, Oral, Q6HPRN, Starting on Fri11/08/22 at 1139, Until Discontinu ed, Routine, Pain (scale 4-6) [facility] bupivacaine (preserv free) (SENSORCAIN E MPF) 0.25 % (2.5 mg/mL) injection 2021-12 17:32: 00 11-08 17:54 :51 No PRN, Starting on Fri11/08/22 at 1132, Until Fri11/08/22 at 1154, Routine, Intra-op [facility] enoxaparin (LOVENOX) injection 40 mg 2021-12 23:00: 00 Yes 40mg 40 mg, Subcutaneo us, DAILY, First dose on Nguyen 11/07/22 at 1700, Until Discontinu ed, Routine [facility] piperacilli n-tazobacta m (ZOSYN) 3.375 g in NaCl 0.9% (NS) 50 mL MINI-BAG 2021-12 20:00: 00 11-08 17:40 :18 No 3.375g 3.375 g, IV Piggyback, Q8H ABX, 9 doses, First dose on Nguyen 11/07/22 at 1400, Last dose on Fri11/10/22 at 0600, Administer over 4 Hours, 50 mL
Reas on for Anti-Infec tive: Empiric Therapy for Suspected Infection< br>Empiric Therapy Site: Abdominal< br>Duratio n of therapy: 72 hours [facility] pantoprazol e (PROTONIX) injection 40 mg 2021-12 11:30: 00 11-08 17:40 :18 No 40mg 40 mg, Slow IV Push, Q24H, 3 doses, First dose on Nguyen 11/07/22 at 0530, Last dose on 11/09/22 at 0530 [facility] D5W 0.45% NaCl (1/2NS) 1 L + KCL 20 mEq 2021-12 11:30: 00 11-08 17:40 :18 No IV Infusion, at 100 mL/hr, CONTINUOUS , Starting on Nguyen 11/07/22 at 0530, Until Fri11/08/22 at 1140, Routine [facility] morpHINE (2 mg/mL) injection 2 mg 2021-12 11:26: 15 Yes 2mg 2 mg, Slow IV Push, Q4HPRN, Starting on Nguyen 11/07/22 at 0526, Until Discontinu ed, Routine, Pain (scale 7-10) [facility] piperacilli n-tazobacta m (ZOSYN) 3.375 g in NaCl 0.9% (NS) 50 mL MINI-BAG 2021-12 07:45: 00 11-07 08:29 :00 No 3.375g 3.375 g, IV Piggyback, ONCE, 1 dose, On Fri11/07/22 at 0145, Administer over 30 Minutes, 50 mL
Reas on for Anti-Infec tive: Documented Infection< br>Documen edward Infection Site: Abdominal< br>Duratio n of Therapy: Other (see Comments) [facility] iopamidol (ISOVUE 370-500 mL) injection 75 mL 2021-12 07:45: 00 11-07 07:45 :00 No [id number] 75mL 75 mL, Intravenou s, ONCE, 1 dose, On Fri11/07/22 at 0145, Routine [facility] ketorolac (TORADOL) injection 30 mg 2021-12 07:45: 00 11-07 07:01 :00 No 30mg 30 mg, Slow IV Push, ONCE, 1 dose, On Fri11/07/22 at 0145, Routine [facility] pravastatin (PRAVACHOL) tablet 40 mg 05-09 02:00: 00 Yes 40mg 40 mg, Oral, QHS, First dose on Fri05/08/22 at 2100, Until Discontinu ed, Routine [facility] amLODIPine 5 mg tablet 05-09 00:00: 00 06-09 04:59 :00 No [id number] 5mg Take 1 tablet by mouth daily for 30 days. [facility] aspirin 81 mg EC tablet 05-09 00:00: 00 06-09 04:59 :00 No [id number] 81mg Take 1 tablet by mouth daily for 30 days. [facility] lisinopriL 10 mg tablet 05-09 00:00: 00 06-09 04:59 :00 No [id number] 10mg Take 1 tablet by mouth daily for 30 days. [facility] aspirin EC tablet 81 mg 05-08 14:00: 00 Yes 81mg 81 mg, Oral, DAILY, First dose on Fri05/08/22 at 0900, Until Discontinu ed, Routine [facility] amLODIPine (NORVASC) tablet 5 mg 05-08 00:45: 00 Yes 5mg 5 mg, Oral, DAILY, First dose on Fri05/07/22 at 1945, Until Discontinu ed, Routine [facility] TAKE ONE (1) TABLET(S) BY MOUTH ONCE A DAY AT BEDTIME. 05-08 00:00: 00 03-24 00:00 :00 Milagros Lang TAKE ONE (1) TABLET(S) BY MOUTH ONCE A DAY. 05-08 00:00: 00 03-24 00:00 :00 No Sammy Lang TAKE ONE (1) TABLET(S) BY MOUTH ONCE A DAY. 05-08 00:00: 00 03-24 00:00 :00 Milagros Lang pravastatin 40 mg tablet 05-08 00:00: 00 06-08 04:59 :00 No [id number] 40mg Take 1 tablet by mouth at bedtime for 30 days. [facility] lisinopriL (PRINIVIL,Z ESTRIL) tablet 10 mg 05-07 23:30: 00 Yes 10mg 10 mg, Oral, DAILY, First dose on Fri05/07/22 at 1830, Until Discontinu ed, Routine [facility] traMADoL (ULTRAM) tablet 50 mg 05-07 23:28: 34 Yes 50mg 50 mg, Oral, Q6HPRN, Starting on Fri05/07/22 at 1828, Until Discontinu ed, Routine, Pain (scale 4-6) [facility] hydralAZINE (APRESOLINE ) injection 10 mg 05-07 23:26: 07 Yes 10mg 10 mg, Slow IV Push, Q4HPRN, Starting on Fri05/07/22 at 1826, Until Discontinu ed, Routine, DBP=>100; SBP=>180 [facility] nitroglycer in (NITROL) 2 % ointment 1 Inch 05-07 23:15: 00 Yes 1[in_us ] 1 Inch, Transderma l (Apply To Skin), Q6HHOL, First dose on Fri05/07/22 at 1815, Until Discontinu ed, Routine [facility] enoxaparin (LOVENOX) injection 40 mg 05-07 22:00: 00 Yes 40mg 40 mg, Subcutaneo us, DAILY, First dose on Fri05/07/22 at 1700, Until Discontinu ed, Routine [facility] acetaminoph en (TYLENOL) tablet 650 mg 05-07 19:08: 37 Yes 650mg 650 mg, Oral, Q6HPRN, Starting on Fri05/07/22 at 1408, Until Discontinu ed, Routine, Pain (scale 1-3) [facility] lisinopril 2.5 mg tablet 12-16 00:00: 00 Yes 1mg Sammy Lang Macrobid 100 mg capsule 12-16 00:00: 00 Yes 1mg Sammy Lang lisinopril 2.5 mg tablet 12-16 00:00: 00 No 1mg lisinopril 2.5 mg tablet 12-16 00:00: 00 No 1mg Augmentin 875 mg-125 mg tablet 03-30 00:00: 00 Yes 1mg Sammy Lang tamsulosin 0.4 mg capsule 03-30 00:00: 00 Yes 1mg Sammy Lang Augmentin 875 mg-125 mg tablet 03-30 00:00: 00 No 1mg Augmentin 875 mg-125 mg tablet 03-30 00:00: 00 No 1mg Dose Unknown 05-26 00:00: 00 No Dose Unknown 05-26 00:00: 00 No lovastatin 20 mg tablet 05-26 00:00: 00 Yes 1mg Sammy Lang amoxicillin 500 mg tablet 05-01 00:00: 00 No 1mg amoxicillin 500 mg tablet 05-01 00:00: 00 No 1mg amoxicillin 500 mg tablet 05-01 00:00: 00 Yes 1mg Sammy Lang Celexa 20 mg tablet 01-09 00:00: 00 No 2mg Risperdal 2 mg tablet 01-09 00:00: 00 No 1mg benztropine 1 mg tablet 01-09 00:00: 00 No 1mg trazodone 100 mg tablet 01-09 00:00: 00 No 12mg Risperdal 2 mg tablet 01-09 00:00: 00 No 2mg Celexa 20 mg tablet 01-09 00:00: 00 No 2mg Risperdal 2 mg tablet 01-09 00:00: 00 No 1mg benztropine 1 mg tablet 01-09 00:00: 00 No 1mg trazodone 100 mg tablet 01-09 00:00: 00 No 12mg Risperdal 2 mg tablet 01-09 00:00: 00 No 2mg bupropion HCl XL 150 mg 24 hr tablet, extended release 01-09 00:00: 00 Yes 1mg Sammy Lang Celexa 20 mg tablet 01-09 00:00: 00 Yes 2mg Sammy Lang Risperdal 2 mg tablet 01-09 00:00: 00 Yes 1mg Sammy Lang benztropine 1 mg tablet 01-09 00:00: 00 Yes 1mg Sammy Lang trazodone 100 mg tablet 01-09 00:00: 00 Yes 12mg Sammy Lang Risperdal 2 mg tablet 01-09 00:00: 00 Yes 2mg Sammy Lang Immunizations Ordered Immunization Name Filled Immunization Name Date Status Comments Source SARS-COV-2 COVID-19 PFIZER VACCINE 2021-04-09 00:00:00 Completed [facility] SARS-COV-2 COVID-19 PFIZER VACCINE 2021-04-09 00:00:00 Completed [facility] SARS-COV-2 COVID-19 PFIZER VACCINE 2021-04-09 00:00:00 Completed [facility] SARS-COV-2 COVID-19 PFIZER VACCINE 2021-04-09 00:00:00 Completed [facility] SARS-COV-2 COVID-19 PFIZER VACCINE 2021-04-09 00:00:00 Completed SARS-COV-2 COVID-19 PFIZER VACCINE 2021-04-09 00:00:00 Completed [facility] SARS-COV-2 COVID-19 PFIZER VACCINE 2021-03-17 00:00:00 Completed [facility] SARS-COV-2 COVID-19 PFIZER VACCINE 2021-03-17 00:00:00 Completed [facility] SARS-COV-2 COVID-19 PFIZER VACCINE 2021-03-17 00:00:00 Completed [facility] SARS-COV-2 COVID-19 PFIZER VACCINE 2021-03-17 00:00:00 Completed [facility] SARS-COV-2 COVID-19 PFIZER VACCINE 2021-03-17 00:00:00 Completed [facility] SARS-COV-2 COVID-19 PFIZER VACCINE 2021-03-17 00:00:00 Completed [facility] Vital Signs Vital Name Observation Time Observation Value Comments S ource Systolic blood pressure 2025-07-04 19:29:00 106 mm[Hg] [facility] Diastolic blood pressure 2025-07-04 19:29:00 70 mm[Hg] [facility] Heart rate 2025-07-04 19:29:00 69 /min [facility] Body height 2025-07-04 19:29:00 188 cm [facility] Body weight 2025-07-04 19:29:00 86.32 kg [facility] BMI 2025-07-04 19:29:00 24.43 kg/m2 [facility] Oxygen saturation in Arterial blood by Pulse oximetry 2025-07-04 19:29:00 99 /min [facility] Systolic blood pressure 2025-03-01 14:23:00 146 mm[Hg] [facility] Diastolic blood pressure 2025-03-01 14:23:00 92 mm[Hg] [facility] Heart rate 2025-03-01 14:23:00 83 /min [facility] Respiratory rate 2025-03-01 14:23:00 18 /min [facility] Body height 2025-03-01 14:23:00 188 cm [facility] Body weight 2025-03-01 14:23:00 88.451 kg [facility] BMI 2025-03-01 14:23:00 25.04 kg/m2 [facility] Oxygen saturation in Arterial blood by Pulse oximetry 2025-03-01 14:23:00 98 /min [facility] Systolic blood pressure 2025-01-18 19:21:00 110 mm[Hg] [facility] Diastolic blood pressure 2025-01-18 19:21:00 75 mm[Hg] [facility] Heart rate 2025-01-18 19:21:00 85 /min [facility] Respiratory rate 2025-01-18 19:21:00 18 /min [facility] Body height 2025-01-18 19:21:00 188 cm [facility] Body weight 2025-01-18 19:21:00 91.258 kg [facility] BMI 2025-01-18 19:21:00 25.83 kg/m2 [facility] Oxygen saturation in Arterial blood by Pulse oximetry 2025-01-18 19:21:00 98 /min [facility] Systolic blood pressure 2022-11-19 16:53:00 140 mm[Hg] [facility] Diastolic blood pressure 2022-11-19 16:53:00 90 mm[Hg] [facility] Heart rate 2022-11-19 16:53:00 99 /min [facility] Body temperature 2022-11-19 16:53:00 36.78 Leidy [facility] Body height 2022-11-19 16:53:00 188 cm [facility] Body weight 2022-11-19 16:53:00 93.849 kg [facility] BMI 2022-11-19 16:53:00 26.56 kg/m2 [facility] Oxygen saturation in Arterial blood by Pulse oximetry 2022-11-19 16:53:00 99 /min [facility] Systolic blood pressure 2022-11-09 18:00:00 130 mm[Hg] [facility] Diastolic blood pressure 2022-11-09 18:00:00 87 mm[Hg] [facility] Heart rate 2022-11-09 18:00:00 96 /min [facility] Body temperature 2022-11-09 18:00:00 36.67 Leidy [facility] Respiratory rate 2022-11-09 18:00:00 10 /min [facility] Oxygen saturation in Arterial blood by Pulse oximetry 2022-11-09 18:00:00 98 /min [facility] Body height 2022-11-07 05:04:00 188 cm [facility] Body weight 2022-11-07 05:04:00 94.348 kg [facility] BMI 2022-11-07 05:04:00 26.71 kg/m2 [facility] Systolic blood pressure 2022-11-08 13:51:00 114 mm[Hg] [facility] Diastolic blood pressure 2022-11-08 13:51:00 75 mm[Hg] [facility] Heart rate 2022-11-08 13:51:00 63 /min [facility] Body temperature 2022-11-08 13:51:00 35.67 Leidy [facility] Oxygen saturation in Arterial blood by Pulse oximetry 2022-11-08 13:51:00 98 /min [facility] Respiratory rate 2022-11-08 10:18:00 16 /min [facility] Body height 2022-11-07 05:04:00 188 cm [facility] Body weight 2022-11-07 05:04:00 94.348 kg [facility] BMI 2022-11-07 05:04:00 26.71 kg/m2 [facility] Systolic blood pressure 2022-05-08 16:00:00 113 mm[Hg] [facility] Diastolic blood pressure 2022-05-08 16:00:00 77 mm[Hg] [facility] Heart rate 2022-05-08 16:00:00 73 /min [facility] Body temperature 2022-05-08 16:00:00 36.67 Leidy [facility] Respiratory rate 2022-05-08 16:00:00 18 /min [facility] Oxygen saturation in Arterial blood by Pulse oximetry 2022-05-08 16:00:00 98 /min [facility] Body weight 2022-05-08 08:22:00 97.977 kg [facility] BMI 2022-05-08 08:22:00 27.73 kg/m2 [facility] Body height 2022-05-07 21:08:00 188 cm [facility] BP Systolic 2025-05-15 21:11:00 134 mm[Hg] Step hen F Rickey BP Diastolic 2025-05-15 21:11:00 76 mm[Hg] Russel phen F Rickey Weight Measured 2025-05-15 21:11:00 182.60 pounds Sammy F Rickey Height Measured 2025-05-15 21:11:00 73.94 inches Sammy F Rickey Body Temperature 2025-05-15 21:11:00 98.20 degrees Sammy F Rickey Heart Rate 2025-05-15 21:11:00 80.00 /min Alethea en F Rickey Respiratory Rate 2025-05-15 21:11:00 18.00 /min Sammy F Rickey BP Systolic 2025-04-25 14:37:00 Step hen F Rickey BP Diastolic 2025-04-25 14:37:00 Russel phen F Rickey Weight Measured 2025-04-25 14:37:00 182.60 pounds Sammy F Rickey Height Measured 2025-04-25 14:37:00 73.94 inches Sammy F Rickey Body Temperature 2025-04-25 14:37:00 98.20 degrees Sammy F Rickey Heart Rate 2025-04-25 14:37:00 80.00 /min Alethea en F Rickey Respiratory Rate 2025-04-25 14:37:00 18.00 /min Sammy F Rickey BP Systolic 2025-03-15 13:38:00 130 mm[Hg] Step hen F Rickey BP Diastolic 2025-03-15 13:38:00 110 mm[Hg] Russel phen F Rickey Weight Measured 2025-03-15 13:38:00 195.00 pounds Sammy F Rickey Height Measured 2025-03-15 13:38:00 73.94 inches Sammy F Rickey Body Temperature 2025-03-15 13:38:00 97.10 degrees Sammy F Rickey Heart Rate 2025-03-15 13:38:00 75.00 /min Alethea en F Rickey Respiratory Rate 2025-03-15 13:38:00 18.00 /min Sammy F Rickey BP Systolic 2025-01-17 15:33:00 133 mm[Hg] Step hen F Rickey BP Diastolic 2025-01-17 15:33:00 77 mm[Hg] Russel phen F Rickey Weight Measured 2025-01-17 15:33:00 197.60 pounds Sammy F Rickey Height Measured 2025-01-17 15:33:00 73.94 inches Sammy F Rickey Body Temperature 2025-01-17 15:33:00 98.30 degrees Sammy F Rickey Heart Rate 2025-01-17 15:33:00 94.00 /min Alethea en F Rickey Respiratory Rate 2025-01-17 15:33:00 18.00 /min Sammy F Rickey BP Systolic 2024-12-17 15:42:00 117 mm[Hg] Step hen F Rickey BP Diastolic 2024-12-17 15:42:00 80 mm[Hg] Russel phen F Rickey Weight Measured 2024-12-17 15:42:00 198.40 pounds Sammy F Rickey Height Measured 2024-12-17 15:42:00 73.94 inches Sammy F Rickey Body Temperature 2024-12-17 15:42:00 97.90 degrees Sammy F Rickey Heart Rate 2024-12-17 15:42:00 88.00 /min Alethea en F Rickey Respiratory Rate 2024-12-17 15:42:00 19.00 /min Sammy F Rickey BP Systolic 2024-11-16 14:02:00 118 mm[Hg] Step hen F Rickey BP Diastolic 2024-11-16 14:02:00 80 mm[Hg] Russel phen F Rickey Weight Measured 2024-11-16 14:02:00 207.60 pounds Sammy F Rickey Height Measured 2024-11-16 14:02:00 73.94 inches Sammy F Rickey Body Temperature 2024-11-16 14:02:00 97.80 degrees Sammy F Rickey Heart Rate 2024-11-16 14:02:00 89.00 /min Alethea en F Rickey Respiratory Rate 2024-11-16 14:02:00 18.00 /min Sammy F Rickey BP Systolic 2024-10-26 13:25:00 110 mm[Hg] Step hen F Rickey BP Diastolic 2024-10-26 13:25:00 69 mm[Hg] Russel phen F Rickey Weight Measured 2024-10-26 13:25:00 207.00 pounds Sammy F Rickey Height Measured 2024-10-26 13:25:00 73.94 inches Sammy F Rickey Body Temperature 2024-10-26 13:25:00 97.80 degrees Sammy F Rickey Heart Rate 2024-10-26 13:25:00 83.00 /min Alethea en F Rickey Respiratory Rate 2024-10-26 13:25:00 16.00 /min Sammy F Rickey BP Systolic 2024-10-06 14:56:00 149 mm[Hg] Step hen F Rickey BP Diastolic 2024-10-06 14:56:00 97 mm[Hg] Russel phen F Rickey Weight Measured 2024-10-06 14:56:00 202.40 pounds Sammy F Rickey Height Measured 2024-10-06 14:56:00 73.94 inches Sammy F Rickey Body Temperature 2024-10-06 14:56:00 98.20 degrees Sammy F Rickey Heart Rate 2024-10-06 14:56:00 77.00 /min Alethea en F Rickey Respiratory Rate 2024-10-06 14:56:00 18.00 /min Sammy F Rickey BP Systolic 2024-09-14 15:43:00 133 mm[Hg] Step hen F Rickey BP Diastolic 2024-09-14 15:43:00 93 mm[Hg] Russel phen F Rickey Weight Measured 2024-09-14 15:43:00 205.00 pounds Sammy F Rickey Height Measured 2024-09-14 15:43:00 73.94 inches Sammy F Rickey Body Temperature 2024-09-14 15:43:00 98.20 degrees Sammy F Rickey Heart Rate 2024-09-14 15:43:00 92.00 /min Alethea en F Rickey Respiratory Rate 2024-09-14 15:43:00 16.00 /min Sammy F Rickey BP Systolic 2024-08-24 15:11:00 126 mm[Hg] Step hen F Rickey BP Diastolic 2024-08-24 15:11:00 92 mm[Hg] Russel phen F Rickey Weight Measured 2024-08-24 15:11:00 201.60 pounds Sammy F Rickey Height Measured 2024-08-24 15:11:00 73.94 inches Sammy F Rickey Body Temperature 2024-08-24 15:11:00 98.90 degrees Sammy F Rickey Heart Rate 2024-08-24 15:11:00 80.00 /min Alethea en F Rickey Respiratory Rate 2024-08-24 15:11:00 18.00 /min Sammy F Rickey BP Systolic 2024-08-04 16:02:00 124 mm[Hg] Step hen F Rickey BP Diastolic 2024-08-04 16:02:00 87 mm[Hg] Russel phen F Rickey Weight Measured 2024-08-04 16:02:00 199.80 pounds Sammy F Rickey Height Measured 2024-08-04 16:02:00 73.94 inches Sammy F Rickey Body Temperature 2024-08-04 16:02:00 98.40 degrees Sammy F Rickey Heart Rate 2024-08-04 16:02:00 81.00 /min Alethea en F Rickey Respiratory Rate 2024-08-04 16:02:00 18.00 /min Sammy F Rickey BP Systolic 2024-07-29 15:46:00 125 mm[Hg] Step hen F Rickey BP Diastolic 2024-07-29 15:46:00 86 mm[Hg] Russel phen F Rickey Weight Measured 2024-07-29 15:46:00 203.20 pounds Sammy F Rickey Height Measured 2024-07-29 15:46:00 73.94 inches Sammy F Rickey Body Temperature 2024-07-29 15:46:00 98.30 degrees Sammy F Rickey Heart Rate 2024-07-29 15:46:00 121.00 /min Step hen F Rickey Respiratory Rate 2024-07-29 15:46:00 18.00 /min Sammy F Rickey BP Systolic 2024-04-20 14:10:00 137 mm[Hg] Step hen F Rickey BP Diastolic 2024-04-20 14:10:00 89 mm[Hg] Russel phen F Rickey Weight Measured 2024-04-20 14:10:00 204.40 pounds Sammy F Rickey Height Measured 2024-04-20 14:10:00 73.94 inches Sammy F Rickey Body Temperature 2024-04-20 14:10:00 98.20 degrees Sammy F Rickey Heart Rate 2024-04-20 14:10:00 73.00 /min Alethea en F Rickey Respiratory Rate 2024-04-20 14:10:00 18.00 /min Sammy F Rickey BP Systolic 2024-01-27 11:26:00 138 mm[Hg] Step hen F Rickey BP Diastolic 2024-01-27 11:26:00 93 mm[Hg] Russel phen F Rickey Weight Measured 2024-01-27 11:26:00 204.80 pounds Sammy F Rickey Height Measured 2024-01-27 11:26:00 73.94 inches Sammy F Rickey Body Temperature 2024-01-27 11:26:00 98.10 degrees Sammy F Rickey Heart Rate 2024-01-27 11:26:00 62.00 /min Alethea en F Rickey Respiratory Rate 2024-01-27 11:26:00 Sammy F Rickey BP Systolic 2024-01-21 15:22:00 118 mm[Hg] Step hen F Rickey BP Diastolic 2024-01-21 15:22:00 79 mm[Hg] Russel phen F Rickey Weight Measured 2024-01-21 15:22:00 204.00 pounds Sammy F Rickey Height Measured 2024-01-21 15:22:00 73.94 inches Sammy F Rickey Body Temperature 2024-01-21 15:22:00 98.30 degrees Sammy F Rickey Heart Rate 2024-01-21 15:22:00 80.00 /min Alethea en F Rickey Respiratory Rate 2024-01-21 15:22:00 18.00 /min Sammy F Rickey BP Systolic 2024-01-14 13:53:00 122 mm[Hg] Step hen F Rickey BP Diastolic 2024-01-14 13:53:00 96 mm[Hg] Russel phen F Rickey Weight Measured 2024-01-14 13:53:00 203.60 pounds Sammy F Rickey Height Measured 2024-01-14 13:53:00 73.94 inches Sammy F Rickey Body Temperature 2024-01-14 13:53:00 98.30 degrees Sammy F Rickey Heart Rate 2024-01-14 13:53:00 67.00 /min Alethea en F Rickey Respiratory Rate 2024-01-14 13:53:00 18.00 /min Sammy F Rickey BP Systolic 2023-12-25 10:46:00 129 mm[Hg] Step hen F Rickey BP Diastolic 2023-12-25 10:46:00 90 mm[Hg] Russel phen F Rickey Weight Measured 2023-12-25 10:46:00 205.40 pounds Sammy F Rickey Height Measured 2023-12-25 10:46:00 73.94 inches Sammy F Rickey Body Temperature 2023-12-25 10:46:00 98.00 degrees Sammy F Rickey Heart Rate 2023-12-25 10:46:00 84.00 /min Alethea en F Rickey Respiratory Rate 2023-12-25 10:46:00 18.00 /min Sammy F Rickey BP Systolic 2022-10-28 17:35:00 119 mm[Hg] Step hen F Rickey BP Diastolic 2022-10-28 17:35:00 83 mm[Hg] Russel phen F Rickey Weight Measured 2022-10-28 17:35:00 208.20 pounds Sammy F Rickey Height Measured 2022-10-28 17:35:00 73.94 inches Sammy F Rickey Body Temperature 2022-10-28 17:35:00 98.50 degrees Sammy F Rickey Heart Rate 2022-10-28 17:35:00 65.00 /min Alethea en F Rickey Respiratory Rate 2022-10-28 17:35:00 Sammy F Rickey BP Systolic 2022-10-17 10:54:00 144 mm[Hg] Step hen F Rickey BP Diastolic 2022-10-17 10:54:00 100 mm[Hg] Russel phen F Rickey Weight Measured 2022-10-17 10:54:00 207.00 pounds Sammy F Rickey Height Measured 2022-10-17 10:54:00 73.94 inches Sammy F Rickey Body Temperature 2022-10-17 10:54:00 98.10 degrees Sammy F Rickey Heart Rate 2022-10-17 10:54:00 74.00 /min Alethea en F Rickey Respiratory Rate 2022-10-17 10:54:00 Sammy F Rickey BP Diastolic 2022-10-09 15:41:00 87 mm[Hg] Russel phen F Rickey Weight Measured 2022-10-09 15:41:00 208.20 pounds Sammy F Rickey Height Measured 2022-10-09 15:41:00 73.94 inches Sammy F Rickey Body Temperature 2022-10-09 15:41:00 98.00 degrees Sammy F Rickey Heart Rate 2022-10-09 15:41:00 78.00 /min Alethea en F Rickey Respiratory Rate 2022-10-09 15:41:00 Sammy F Rickey BP Systolic 2022-10-09 15:41:00 150 mm[Hg] Step hen F Rickey BP Systolic 2019-12-16 14:31:00 151 mm[Hg] Step hen F Rickey BP Diastolic 2019-12-16 14:31:00 97 mm[Hg] Russel phen F Rickey Weight Measured 2019-12-16 14:31:00 198.40 pounds Sammy F Rickey Height Measured 2019-12-16 14:31:00 73.94 inches Sammy F Rickey Body Temperature 2019-12-16 14:31:00 98.00 degrees Sammy F Rickey Heart Rate 2019-12-16 14:31:00 92.00 /min Alethea en F Rickey Respiratory Rate 2019-12-16 14:31:00 18.00 /min Sammy F Rickey BP Systolic 2019-03-30 14:18:00 116 mm[Hg] Step hen F Rickey BP Diastolic 2019-03-30 14:18:00 82 mm[Hg] Russel phen F Rickey Weight Measured 2019-03-30 14:18:00 166.40 pounds Sammy F Rcikey Height Measured 2019-03-30 14:18:00 73.94 inches Sammy F Rickey Body Temperature 2019-03-30 14:18:00 98.30 degrees Sammy F Rickey Heart Rate 2019-03-30 14:18:00 96.00 /min Alethea en F Rickey Respiratory Rate 2019-03-30 14:18:00 18.00 /min Sammy F Rickey BP Systolic 2018-05-26 13:36:00 143 mm[Hg] Step hen F Rickey BP Diastolic 2018-05-26 13:36:00 83 mm[Hg] Russel phen F Rickey Weight Measured 2018-05-26 13:36:00 191.00 pounds Sammy Lang Height Measured 2018-05-26 13:36:00 73.94 inches Sammy F Rickey Body Temperature 2018-05-26 13:36:00 98.70 degrees Sammykeron Lang Heart Rate 2018-05-26 13:36:00 80.00 /min Alethea en F Rickey Respiratory Rate 2018-05-26 13:36:00 18.00 /min Sammykeron Lang BP Systolic 2017-05-01 14:10:00 118 mm[Hg] BP Diastolic 2017-05-01 14:10:00 84 mm[Hg] Weight Measured 2017-05-01 14:10:00 188.20 pounds Height Measured 2017-05-01 14:10:00 73.94 inches Body Temperature 2017-05-01 14:10:00 98.80 degrees Heart Rate 2017-05-01 14:10:00 65.00 /min Respiratory Rate 2017-05-01 14:10:00 18.00 /min BP Systolic 2017-01-09 13:40:00 120 mm[Hg] BP Diastolic 2017-01-09 13:40:00 87 mm[Hg] Weight Measured 2017-01-09 13:40:00 200.00 pounds Height Measured 2017-01-09 13:40:00 73.94 inches Body Temperature 2017-01-09 13:40:00 98.00 degrees Heart Rate 2017-01-09 13:40:00 74.00 /min Respiratory Rate 2017-01-09 13:40:00 18.00 /min Procedures Procedure Date / Time Performed Performing Clinician Source EMG/NCV 2025-05-17 19:49:05 Rodo Redmond [facility] MR CERVICAL SPINE WO CONTRAST 2025-03-01 15:59:25 Jaskaran Gregg [facility] XR CHEST 2 VW 2025-01-18 20:40:23 Jaskaran Gregg [facility] BASIC METABOLIC PANEL (NA, K, CL, CO2, GLUCOSE, BUN, CREATININE, CA) 2022-11-09 11:01:00 Oracio Phipps [facility] CBC WITHOUT DIFF 2022-11-09 11:01:00 Oracio Phipps [facility] BASIC METABOLIC PANEL (NA, K, CL, CO2, GLUCOSE, BUN, CREATININE, CA) 2022-11-09 11:01:00 Oracio Phipps [facility] CBC WITHOUT DIFF 2022-11-09 11:01:00 Oracio Phipps [facility] POCT GLUCOSE (AUTOMATED) 2022-11-08 18:29[facility] 2022-11-08 18:29:00 Luisana Naik [facility] LAPAROSCOPIC CHOLECYSTECTOMY 2022-11-08 15:28:00 Nitin Killian [facility] CT ABDOMEN PELVIS W CONTRAST 2022-11-07 07:11:37 Natali Vicente [facility] CT ABDOMEN PELVIS W CONTRAST 2022-11-07 07:11:37 Natali Vicente [facility] URINALYSIS 2022-11-07 06:17:00 Natali Vicente [facility] URINALYSIS 2022-11-07 06:17:00 Natali Vicente [facility] LIPASE 2022-11-07 05:56:00 Natali Vicente [facility] COMP. METABOLIC PANEL (41445) 2022-11-07 05:56:00 Natali Vicente [facility] CBC WITH DIFF 2022-11-07 05:56:00 Natali Vicente [facility] LIPASE 2022-11-07 05:56:00 Natali Vicente [facility] COMP. METABOLIC PANEL ([id number]) 2022-11-07 05:56:00 Natali Vicente [facility] CBC WITH DIFF 2022-11-07 05:56:00 Natali Vicente [facility] NOTICE OF PRIVACY PRACTICES 2022-11-07 04:49:09 Doctor Unassigned, [place] [facility] NOTICE OF PRIVACY PRACTICES 2022-11-07 04:49:09 Doctor Unassigned, [place] [facility] CONSENT/REFUSAL FOR DIAGNOSIS AND TREATMENT 2022-11-07 04:48:38 Doctor Unassigned, [place] [facility] CONSENT/REFUSAL FOR DIAGNOSIS AND TREATMENT 2022-11-07 04:48:38 Doctor Unassigned, [place] [facility] HOSPITAL ADMISSION 2022-11-06 06:01:00 Doctor Un assigned, [place] [facility] HOSPITAL ADMISSION 2022-11-06 06:01:00 Doctor Un assigned, [place] [facility] TROPONIN I 2022-05-08 08:43:00 Digna Murrell [facility] LIPID PANEL ([id number])(TOTAL CHOLESTEROL, TRIGLYCERIDES, HDL) 2022-05-08 08:43:00 [facility] 2022-05-08 01:01:00 Digna Murrell [facility] TRANSTHORACIC ECHO (TTE) COMPLETE 2022-05-07 20:40:00 Crow Raines [facility] XR CHEST 1 VW 2022-05-07 17:46:47 Singer [facility] LIPASE 2022-05-07 17:28:00 Singer [facility] MAGNESIUM 2022-05-07 17:28:00 Singer [facility] TROPONIN I 2022-05-07 17:28:00 Singer [facility] COMP. METABOLIC PANEL ([id number]) 2022-05-07 17:28:00 Singer [facility] CBC WITH DIFF 2022-05-07 17:28:00 Singer [facility] GLYCOSYLATED HEMOGLOBIN (A1C) 2022-05-07 17:28:00 Mellissa Mooney [facility] PROTHROMBIN TIME / INR 2022-05-07 17:28:00 Manny Kidd [facility] ACTIVATED PARTIAL THRMPLAS PREET 2022-05-07 17:28:00 Singer [facility] N-TERMINAL PRO-BNP 2022-05-07 17:28:00 Gil Kidd [facility] CONSENT/REFUSAL FOR DIAGNOSIS AND TREATMENT 2022-05-07 17:13:14 Doctor Unassigned, [place] [facility] Plan of Care Planned Activity Planned Date Details Comments Source Goal Plan of Care Note [code = 57991-3] Goal Plan of Care Note [code = 42823-5] Goal Plan of Care Note [code = 42151-8] Goal Plan of Care Note [code = 00000-2] Goal Plan of Care Note [code = 75352-1] Goal Plan of Care Note [code = 53339-8] Goal Plan of Care Note [code = 51631-4] Goal Plan of Care Note [code = 24771-4] Goal Plan of Care Note [code = 99033-9] Goal Plan of Care Note [code = 09267-9] Goal Plan of Care Note [code = 71573-8] Goal Plan of Care Note [code = 23476-8] Goal Plan of Care Note [code = 94857-7] Goal Plan of Care Note [code = 21665-7] Goal Plan of Care Note [code = 14208-0] Goal Plan of Care Note [code = 17857-0] Goal Plan of Care Note [code = 28635-4] Goal Plan of Care Note [code = 93303-5] Goal Plan of Care Note [code = 11725-7] Goal Plan of Care Note [code = 74681-2] Goal Plan of Care Note [code = 68394-8] Goal Plan of Care Note [code = 86307-9] Goal Plan of Care Note [code = 46222-9] Goal Plan of Care Note [code = 32836-6] Goal Plan of Care Note [code = 58280-0] Goal Plan of Care Note [code = 61161-1] Goal Plan of Care Note [code = 54763-0] Goal Plan of Care Note [code = 90238-6] Goal Plan of Care Note [code = 88391-1] Goal Plan of Care Note [code = 57859-6] Goal Plan of Care Note [code = 99100-5] Goal Plan of Care Note [code = 72221-0] Goal Plan of Care Note [code = 19032-1] Goal Plan of Care Note [code = 97477-1] Goal Plan of Care Note [code = 80242-6] Goal Plan of Care Note [code = 00652-7] Goal Plan of Care Note [code = 09248-5] Goal Plan of Care Note [code = 90076-7] Goal Plan of Care Note [code = 58340-2] Goal Plan of Care Note [code = 73968-7] Goal Plan of Care Note [code = 99642-0] Goal Plan of Care Note [code = 78934-5] Goal Plan of Care Note [code = 55633-3] Encounters Start Date/Time End Date/Time Encounter Type Admission Type Attending Clinicians Care Facility Care Department Encounter ID Source 2025-07-04 14:30:00 2025-07-04 15:20:09 Office Visit JASKARAN [facility] 1.2.840.114 350.1.13.10 4.2.7.2.686 [id number] [facility] 2025-06-13 00:00:00 2025-06-27 14:55:17 Telephone Jaskaran Gregg [facility] 1.2.840.114 350.1.13.10 4.2.7.2.686 [id number] [facility] 2025-05-14 00:00:00 2025-06-18 18:32:16 Patient Secure Msg Doctor Unassigned, [place] Doctor Unassigned, [place] [facility] 1.2.840.114 350.1.13.10 4.2.7.2.686 [id number] [facility] 2025-05-17 13:16:07 2025-05-17 23:59:00 Hospital Encounter ESAU ALMONTE [facility] 1.2.840.114 350.1.13.10 4.2.7.2.686 [id number] [facility] 2025-04-25 14:30:31 2025-04-25 14:30:31 Outpatient [facility] [id number] Sammy Lang 2025-04-25 00:00:00 2025-04-25 00:00:[address] [facility] [id number] Sammy Lang 2025-03-22 00:00:00 2025-03-24 10:32:33 Telephone Jaskaran Gregg [facility] 1..840.114 350.1.13.10 4.2.7.2.686 [id number] [facility] 2025-03-15 13:27:48 2025-03-15 13:27:[address] [facility] [id number] Sammy Lang 2025-03-15 00:00:00 2025-03-15 00:00:[address] [facility] [id number] Sammy Lang 2025-03-01 09:03:24 2025-03-01 23:59:00 Outpatient JASKARAN [facility] [id number] [facility] 2025-03-01 09:03:24 2025-03-01 23:59:00 [facility] Encounter Jaskaran Gregg [facility] 1..840.114 350.1.13.10 4.2.7.2.686 [id number] [facility] 2025-02-21 15:00:00 2025-02-21 15:00:00 Outpatient JASKARAN [facility] [id number] [facility] 2025-01-27 00:00:00 2025-01-31 14:15:42 Telephone Cristino Jaskaran Arenas [facility] 1..840.114 350.1.13.10 4.2.7.2.686 [id number] [facility] 2025-01-18 14:31:39 2025-01-18 23:59:00 Hospital Encounter Jaskaran Gregg [facility] 1.2.840.114 350.1.13.10 4.2.7.2.686 [id number] [facility] 2025-01-18 13:00:00 2025-01-18 14:33:18 Outpatient R JASKARAN GREGG [facility] [id number] [facility] 2025-01-18 13:00:00 2025-01-18 14:33:18 Office Visit Jaskaran Gregg [facility] MED[facility] OFF[facility] BUILD[facility] 1.2.840.114 350.1.13.10 4.2.7.2.686 [id number] [facility] 2025-01-17 15:26:58 2025-01-17 15:26:[address] [facility] [id number] Sammy Lang 2025-01-17 00:00:00 2025-01-17 00:00:00 Outpatient Visit S[facility] [id number] Sammy Lang 2024-12-17 15:37:17 2024-12-17 15:37:[address] [facility] [id number] Sammy Lang 2024-12-17 00:00:00 2024-12-17 00:00:00 Outpatient Visit [facility] [id number] Sammy Lang 2024-11-16 13:53:28 2024-11-16 13:53:[address] [facility] [id number] Sammy Lang 2024-11-16 00:00:00 2024-11-16 00:00:00 Outpatient Visit S[facility] [id number] Sammy Lang 2024-10-26 13:18:18 2024-10-26 13:18:18 Outpatient S[facility] [id number] Sammy Lang 2024-10-26 00:00:00 2024-10-26 00:00:00 Outpatient Visit S[facility] [id number] Sammy Lang 2024-10-06 14:49:28 2024-10-06 14:49:28 Outpatient SFA [facility] [id number] Sammy Lang 2024-10-06 00:00:00 2024-10-06 00:00:00 Outpatient Visit S[facility] [id number] Sammy Lang 2024-09-14 15:40:51 2024-09-14 15:40:51 Outpatient SFA S[facility] [id number] Sammy Lang 2024-09-14 00:00:00 2024-09-14 00:00:00 Outpatient Visit S[facility] [id number] Sammy Lang 2024-08-24 15:06:22 2024-08-24 15:06:22 Outpatient SFA S[facility] [id number] Sammy Lang 2024-08-24 00:00:00 2024-08-24 00:00:00 Outpatient Visit SFA [id number] Sammy Lang 2024-08-04 15:56:59 2024-08-04 15:56:59 Outpatient SFA S[facility] [id number] Sammy Lang 2024-08-04 00:00:00 2024-08-04 00:00:00 Outpatient Visit SFA [id number] Sammy Lang 2024-07-29 15:37:30 2024-07-29 15:37:30 Outpatient SFA S[facility] [id number] Sammy Lang 2024-07-29 00:00:00 2024-07-29 00:00:00 Outpatient Visit SFA [id number] Sammy Lang 2024-04-20 14:04:27 2024-04-20 14:04:[address] [facility] [id number] Sammy Lang 2024-04-20 00:00:00 2024-04-20 00:00:00 Outpatient Visit SFA [id number] Sammy Lang 2024-01-27 11:15:15 2024-01-27 11:15:[address] [facility] 7 Sammy Lang 2024-01-21 15:14:17 2024-01-21 15:14:[address] [facility] [id number] Sammy Lang 2024-01-21 00:00:00 2024-01-21 00:00:00 Outpatient Visit SFA [id number] Sammy Lang 2024-01-14 13:47:29 2024-01-14 13:47:[address] [facility] [id number] Sammy Lang 2024-01-01 12:10:09 2024-01-01 12:10:[address] [facility] [id number] Sammy Lang 2023-12-25 10:41:42 2023-12-25 10:41:[address] [facility] [id number] Sammy Lang 2022-11-19 11:00:00 2022-11-19 11:13:27 Office Visit Service/Gen surg, Surgery C Person, [facility] 1.2.840.114 350.1.13.10 4.2.7.2.686 [id number] [facility] 2022-11-19 11:00:00 2022-11-19 11:13:27 Outpatient R PERSON, [facility] [id number] [facility] 2022-11-11 00:00:00 2022-11-11 00:00:00 Telephone Nitin Killian [facility] 1.2.840.114 350.1.13.10 4.2.7.2.686 [id number] [facility] 2022-11-06 23:06:00 2022-11-09 13:30:00 [facility] [id number] [facility] 2022-11-06 23:06:00 2022-11-09 13:30:00 Emergency Natali Vicente, [facility] 1.2.840.114 350.1.13.10 4.2.7.2.686 [id number] [facility] 2022-11-08 08:44:00 2022-11-08 11:32:00 Surgery Killian, [facility] 1.2.840.114 350.1.13.10 4.2.7.2.686 [id number] [facility] 2022-10-28 17:29:04 2022-10-28 17:29:04 Outpatient SFA [facility] [id number] Sammykeron Lang 2022-10-17 10:53:24 2022-10-17 10:53:24 Outpatient SFA [facility] 1117 Sammy Lang 2022-10-17 00:00:00 2022-10-17 00:00:00 Outpatient Visit [id number] 2022-10-09 15:34:41 2022-10-09 15:34:41 Outpatient SFA S[facility] [id number] Sammy Angela Lang 2022-10-09 00:00:2022-10-09 00:00:00 Outpatient Visit [id number] 2022-10-03 14:42:28 2022-10-03 14:42:[address] [facility] [id number] 1103 Sammy Lang 2022-05-07 12:37:00 2022-05-08 14:47:00 Emergency Kidd, Crow Larios [facility] 1.2.840.114 350.1.13.10 4.2.7.2.686 [id number] [facility] 2022-05-07 12:37:00 2022-05-08 14:47:00 Outpatient Nita CROW [facility] [id number] [facility] 2021-04-09 11:40:00 2021-04-09 12:01:51 Outpatient JOSELUIS MURPHY [facility] [id number] [facility] 2021-03-17 11:30:00 2021-03-17 11:53:30 Outpatient MAXIMO PHILLIPS [facility] [id number] [facility] Results Test Description Test Time Test Comments Results Result Co mments Source Sammy LangCOMPREHENSIVE METABOLIC [id number] 00:00:00* Test Item Value Reference Range Interpretation Comme nts GLUCOSE (test code = 2345-7) 96 mg/dL UREA NITROGEN (BUN) (test code = 3094-0) 10 mg/dL CREATININE (test code = 2160-0) 0.98 mg/dL EGFR (test code = 69375-3) 88 mL/min/1.73m2 BUN/CREATININE RATIO (test code = 3097-3) SEE NOTE: (calc) SODIUM (test code = 2951-2) 144 mmol/L POTASSIUM (test code = 2823-3) 4.0 mmol/L CHLORIDE (test code = 2075-0) 101 mmol/L CARBON DIOXIDE (test code = 2028-9) 28 mmol/L CALCIUM (test code = 68240-4) 9.9 mg/dL PROTEIN, TOTAL (test code = 2885-2) 7.2 g/dL ALBUMIN (test code = 1751-7) 4.7 g/dL GLOBULIN (test code = 20611-7) 2.5 g/dL(calc) ALBUMIN/GLOBULIN RATIO (test code = 1759-0) 1.9 (calc) BILIRUBIN, TOTAL (test code = 1975-2) 1.0 mg/dL ALKALINE PHOSPHATASE (test code = 6768-6) 97 U/L AST (test code = 1920-8) 17 U/L ALT (test code = 1742-6) 17 U/L Sammy LangHIV 1/2 ANTIGEN/ANTIBODY,FOURTH GENERATION [id number] 00:00:00* Test Item Value Reference Range Interpretation Comme nts HIV AG/AB, 4TH GEN (test cod e = 54671-1) NON-REACTIVE Sammy LangPROTHROMBIN W/INR + PARTIAL THROMBOPLASTIN [id number] 00:00:00* Test Item Value Reference Range Interpretation Comme stephen PARTIAL THROMBOPLASTIN TIME, ACTIVATED (test code = 22095-9) 30 sec INR (test code = 6301-6) 1.1 PT (test code = 5902-2) 11.7 sec Sammy LangMR Cervical spine wo [id number] 18:37:56EXAMINATION: MR CERVICAL SPINE WO CONTRAST HISTORY: Neck pain, radiculopathy. COMPARISON: None. TECHNIQUE: Multiplanar and multisequence MRI imaging of the cervical spinewas obtained without contrast. FINDINGS: Normal cervical lordosis is preserved. The vertebral bodies are normal inheight and in normal alignment. The background marrow signal is unremarkable. The cervical cord is normal in caliber and signal. C2-C3: Mild facet joint arthrosis with no significant spinal canal stenosisor neural foraminal narrowing is present. C3-C4: Diffuse posterior disc osteophyte complex with bilateraluncovertebral, and facet joint arthrosis that results in moderate rightneural foraminal narrowing and mildto moderate spinal canal stenosis. C4-C5: Shallow posterior disc osteophyte complex with bilateraluncovertebral and facet joint arthrosis with no significant spinal canalstenosis and no more than mild right neural foraminal narrowing. C5-C6: Diffuse posterior disc osteophyte complex with bilateraluncovertebral, facet joint arthrosis and ligamentum flavum thickening thatresults in moderate spinal canal stenosis and mild bilateral left more thanleft neural foraminal narrowing. C6-C7: Shallow posterior disc osteophyte complex with bilateraluncovertebral and facet joint arthrosis with no more than mild spinal canalstenosis and no high- grade neural foraminal narrowing related. Posteriorannular fissure seen. C7-T1: Broad-based left subarticular/foraminal shallow disc protrusion withfacet joint arthrosis that results in mild left neural foraminal narrowingand mild left subarticular zone narrowing. No high-grade spinal canalstenosis seen.[facility] [id number] 03:31:32EXAM: XR CHEST 2 VW COMPARISON: Chest radiograph dated 05/07/2022. HISTORY: Rule out Pancoast tumor of left lung ? TECHNIQUE: PA and lateral views of the chest were obtained. FINDINGS: No focal consolidation is identified. No pleural effusion or pneumothoraxis seen. The cardiomediastinal silhouette is unremarkable.No acute osseous abnormalities.[facility] [id number] 00:00:00* Test Item Value Reference Range Interpretation Comme nts GLUCOSE (test code = 2217) 81 MG/DL BUN (test code = 2208) 11 MG/DL CREATININE (test code = 2214) 1.11 MG/DL eGFR (2020 CKD-EPI) (test co de = 48511) 76 ML/MIN/1.73 CALC BUN/CREAT (test code = 2235) 10 RATIO SODIUM (test code = 2231) 142 MEQ/L POTASSIUM (test code = 2228) 4.7 MEQ/L CHLORIDE (test code = 2215) 102 MEQ/L CARBON DIOXIDE (test code = 2206) 32 MEQ/L CALCIUM (test code = 2209) 10.0 MG/DL PROTEIN, TOTAL (test code = 2229) 6.8 G/DL ALBUMIN (test code = 2201) 4.6 G/DL CALC GLOBULIN (test code = 2240) 2.2 G/DL CALC A/G RATIO (test code = 2234) 2.1 RATIO BILIRUBIN, TOTAL (test code = 2207) 0.9 MG/DL ALKALINE PHOSPHATASE (test code = 2204) 85 U/L AST (test code = 2218) 20 U/L ALT (test code = 2219) 21 U/L Sammy LangLIPID [id number] 00:00:00* Test Item Value Reference Range Interpretation Comme nts CHOLESTEROL (test code = 2210) 144 MG/DL TRIGLYCERIDES (test code = 2232) 186 MG/DL HDL CHOLESTEROL (test code = 2220) 25 MG/DL CALC LDL CHOL (test code = 2237) 91 MG/DL RISK RATIO LDL/HDL (test cod e = 2238) 3.64 RATIO Sammy LangCOMPREHENSIVE METABOLIC [id number] 00:00:00* Test Item Value Reference Range Interpretation Comme nts GLUCOSE (test code = 2217) 81 MG/DL BUN (test code = 2208) 11 MG/DL CREATININE (test code = 2214) 1.11 MG/DL eGFR (2020 CKD-EPI) (test co de = 89204) 76 ML/MIN/1.73 CALC BUN/CREAT (test code = 2235) 10 RATIO SODIUM (test code = 2231) 142 MEQ/L POTASSIUM (test code = 2228) 4.7 MEQ/L CHLORIDE (test code = 2215) 102 MEQ/L CARBON DIOXIDE (test code = 2206) 32 MEQ/L CALCIUM (test code = 2209) 10.0 MG/DL PROTEIN, TOTAL (test code = 2229) 6.8 G/DL ALBUMIN (test code = 2201) 4.6 G/DL CALC GLOBULIN (test code = 2240) 2.2 G/DL CALC A/G RATIO (test code = 2234) 2.1 RATIO BILIRUBIN, TOTAL (test code = 2207) 0.9 MG/DL ALKALINE PHOSPHATASE (test code = 2204) 85 U/L AST (test code = 2218) 20 U/L ALT (test code = 2219) 21 U/L Sammy Miller AustinLIPID [id number] 00:00:00* Test Item Value Reference Range Interpretation Comme nts CHOLESTEROL (test code = 2210) 144 MG/DL TRIGLYCERIDES (test code = 2232) 186 MG/DL HDL CHOLESTEROL (test code = 2220) 25 MG/DL CALC LDL CHOL (test code = 2237) 91 MG/DL RISK RATIO LDL/HDL (test cod e = 2238) 3.64 RATIO Sammy Miller AustinCOMPREHENSIVE METABOLIC [id number] 00:00:00* Test Item Value Reference Range Interpretation Comme nts GLUCOSE (test code = 2217) 81 MG/DL BUN (test code = 2208) 11 MG/DL CREATININE (test code = 2214) 1.11 MG/DL eGFR (2020 CKD-EPI) (test co de = 31849) 76 ML/MIN/1.73 CALC BUN/CREAT (test code = 2235) 10 RATIO SODIUM (test code = 2231) 142 MEQ/L POTASSIUM (test code = 2228) 4.7 MEQ/L CHLORIDE (test code = 2215) 102 MEQ/L CARBON DIOXIDE (test code = 2206) 32 MEQ/L CALCIUM (test code = 2209) 10.0 MG/DL PROTEIN, TOTAL (test code = 2229) 6.8 G/DL ALBUMIN (test code = 2201) 4.6 G/DL CALC GLOBULIN (test code = 2240) 2.2 G/DL CALC A/G RATIO (test code = 2234) 2.1 RATIO BILIRUBIN, TOTAL (test code = 2207) 0.9 MG/DL ALKALINE PHOSPHATASE (test code = 2204) 85 U/L AST (test code = 2218) 20 U/L ALT (test code = 2219) 21 U/L Sammy Miller AustinLIPID [id number] 00:00:00* Test Item Value Reference Range Interpretation Comme nts CHOLESTEROL (test code = 2210) 144 MG/DL TRIGLYCERIDES (test code = 2232) 186 MG/DL HDL CHOLESTEROL (test code = 2220) 25 MG/DL CALC LDL CHOL (test code = 2237) 91 MG/DL RISK RATIO LDL/HDL (test cod e = 2238) 3.64 RATIO Sammy Miller AustinCOMPREHENSIVE METABOLIC [id number] 00:00:00* Test Item Value Reference Range Interpretation Comme nts GLUCOSE (test code = 2217) 81 MG/DL BUN (test code = 2208) 11 MG/DL CREATININE (test code = 2214) 1.11 MG/DL eGFR (2020 CKD-EPI) (test co de = 82656) 76 ML/MIN/1.73 CALC BUN/CREAT (test code = 2235) 10 RATIO SODIUM (test code = 2231) 142 MEQ/L POTASSIUM (test code = 2228) 4.7 MEQ/L CHLORIDE (test code = 2215) 102 MEQ/L CARBON DIOXIDE (test code = 2206) 32 MEQ/L CALCIUM (test code = 2209) 10.0 MG/DL PROTEIN, TOTAL (test code = 2229) 6.8 G/DL ALBUMIN (test code = 2201) 4.6 G/DL CALC GLOBULIN (test code = 2240) 2.2 G/DL CALC A/G RATIO (test code = 2234) 2.1 RATIO BILIRUBIN, TOTAL (test code = 2207) 0.9 MG/DL ALKALINE PHOSPHATASE (test code = 2204) 85 U/L AST (test code = 2218) 20 U/L ALT (test code = 2219) 21 U/L Sammy Miller OmahaLIPID [id number] 00:00:00* Test Item Value Reference Range Interpretation Comme nts CHOLESTEROL (test code = 2210) 144 MG/DL TRIGLYCERIDES (test code = 2232) 186 MG/DL HDL CHOLESTEROL (test code = 2220) 25 MG/DL CALC LDL CHOL (test code = 2237) 91 MG/DL RISK RATIO LDL/HDL (test cod e = 2238) 3.64 RATIO Sammy Miller RickeyCOMPREHENSIVE METABOLIC [id number] 00:00:00* Test Item Value Reference Range Interpretation Comme nts GLUCOSE (test code = 2217) 81 MG/DL BUN (test code = 2208) 11 MG/DL CREATININE (test code = 2214) 1.11 MG/DL eGFR (2020 CKD-EPI) (test co de = 57738) 76 ML/MIN/1.73 CALC BUN/CREAT (test code = 2235) 10 RATIO SODIUM (test code = 2231) 142 MEQ/L POTASSIUM (test code = 2228) 4.7 MEQ/L CHLORIDE (test code = 2215) 102 MEQ/L CARBON DIOXIDE (test code = 2206) 32 MEQ/L CALCIUM (test code = 2209) 10.0 MG/DL PROTEIN, TOTAL (test code = 2229) 6.8 G/DL ALBUMIN (test code = 2201) 4.6 G/DL CALC GLOBULIN (test code = 2240) 2.2 G/DL CALC A/G RATIO (test code = 2234) 2.1 RATIO BILIRUBIN, TOTAL (test code = 2207) 0.9 MG/DL ALKALINE PHOSPHATASE (test code = 2204) 85 U/L AST (test code = 2218) 20 U/L ALT (test code = 2219) 21 U/L Sammy Miller AustinLIPID [id number] 00:00:00* Test Item Value Reference Range Interpretation Comme nts CHOLESTEROL (test code = 2210) 144 MG/DL TRIGLYCERIDES (test code = 2232) 186 MG/DL HDL CHOLESTEROL (test code = 2220) 25 MG/DL CALC LDL CHOL (test code = 2237) 91 MG/DL RISK RATIO LDL/HDL (test cod e = 2238) 3.64 RATIO Sammy LangCOMPREHENSIVE METABOLIC [id number] 00:00:00* Test Item Value Reference Range Interpretation Comme nts GLUCOSE (test code = 2217) 81 MG/DL BUN (test code = 2208) 11 MG/DL CREATININE (test code = 2214) 1.11 MG/DL eGFR (2020 CKD-EPI) (test co de = 60138) 76 ML/MIN/1.73 CALC BUN/CREAT (test code = 2235) 10 RATIO SODIUM (test code = 2231) 142 MEQ/L POTASSIUM (test code = 2228) 4.7 MEQ/L CHLORIDE (test code = 2215) 102 MEQ/L CARBON DIOXIDE (test code = 2206) 32 MEQ/L CALCIUM (test code = 2209) 10.0 MG/DL PROTEIN, TOTAL (test code = 2229) 6.8 G/DL ALBUMIN (test code = 2201) 4.6 G/DL CALC GLOBULIN (test code = 2240) 2.2 G/DL CALC A/G RATIO (test code = 2234) 2.1 RATIO BILIRUBIN, TOTAL (test code = 2207) 0.9 MG/DL ALKALINE PHOSPHATASE (test code = 2204) 85 U/L AST (test code = 2218) 20 U/L ALT (test code = 2219) 21 U/L Sammy Miller AustinLIPID [id number] 00:00:00* Test Item Value Reference Range Interpretation Comme nts CHOLESTEROL (test code = 2210) 144 MG/DL TRIGLYCERIDES (test code = 2232) 186 MG/DL HDL CHOLESTEROL (test code = 2220) 25 MG/DL CALC LDL CHOL (test code = 2237) 91 MG/DL RISK RATIO LDL/HDL (test cod e = 2238) 3.64 RATIO Sammy Mendez, [id number] 00:00:00* Test Item Value Reference Range Interpretation Comme nts CULTURE, URINE (test code = 43316) SPECIMEN NUMBER: [id number] Sammy Mendez [id number] 00:00:00* Test Item Value Reference Range Interpretation Comme nts CULTURE, URINE (test code = 94562) SPECIMEN NUMBER: [id number] Sammy Mendez, [id number] 00:00:00* Test Item Value Reference Range Interpretation Comme nts CULTURE, URINE (test code = 09088) SPECIMEN NUMBER: [id number] Sammy Mendez, [id number] 00:00:00* Test Item Value Reference Range Interpretation Comme nts CULTURE, URINE (test code = 17795) SPECIMEN NUMBER: [id number] Sammy Mendez, [id number] 00:00:00* Test Item Value Reference Range Interpretation Comme nts CULTURE, URINE (test code = 42845) SPECIMEN NUMBER: [id number] Sammy Mendez, [id number] 00:00:00* Test Item Value Reference Range Interpretation Comme nts CULTURE, URINE (test code = 12448) SPECIMEN NUMBER: [id number] Sammy Mendez, [id number] 00:00:00* Test Item Value Reference Range Interpretation Comme nts CULTURE, URINE (test code = 71759) SPECIMEN NUMBER: [id number] Sammy Mendez, [id number] 00:00:00* Test Item Value Reference Range Interpretation Comme nts CULTURE, URINE (test code = 00733) SPECIMEN NUMBER: [id number] Sammy Mendez, [id number] 00:00:00* Test Item Value Reference Range Interpretation Comme nts CULTURE, URINE (test code = 40640) SPECIMEN NUMBER: [id number] Sammy Mendez, [id number] 00:00:00* Test Item Value Reference Range Interpretation Comme nts CULTURE, URINE (test code = 29793) SPECIMEN NUMBER: [id number] Sammy Soriano, [id number] 00:00:00* Test Item Value Reference Range Interpretation Comme nts PSA, TOTAL (test code = 2606) 1.21 NG/ML Sammy MeekA, [id number] 00:00:00* Test Item Value Reference Range Interpretation Comme nts PSA, TOTAL (test code = 2606) 1.21 NG/ML Sammy LangPSA, [id number] 00:00:00* Test Item Value Reference Range Interpretation Comme nts PSA, TOTAL (test code = 2606) 1.21 NG/ML Sammy MeekA, [id number] 00:00:00* Test Item Value Reference Range Interpretation Comme nts PSA, TOTAL (test code = 2606) 1.21 NG/ML Sammy MeekA, [id number] 00:00:00* Test Item Value Reference Range Interpretation Comme nts PSA, TOTAL (test code = 2606) 1.21 NG/ML Sammy LangPSA, [id number] 00:00:00* Test Item Value Reference Range Interpretation Comme nts PSA, TOTAL (test code = 2606) 1.21 NG/ML Sammy LangPSA, [id number] 00:00:00* Test Item Value Reference Range Interpretation Comme nts PSA, TOTAL (test code = 2606) 1.21 NG/ML Sammy MeekA, [id number] 00:00:00* Test Item Value Reference Range Interpretation Comme nts PSA, TOTAL (test code = 2606) 1.21 NG/ML Sammy LangPSA, [id number] 00:00:00* Test Item Value Reference Range Interpretation Comme nts PSA, TOTAL (test code = 2606) 1.21 NG/ML Sammy LangPSA, [id number] 00:00:00* Test Item Value Reference Range Interpretation Comme nts PSA, TOTAL (test code = 2606) 1.21 NG/ML Sammy Gonzalez, THIRD [id number] 00:00:00* Test Item Value Reference Range Interpretation Comme nts TSH, THIRD GENERATION (test code = 2821) 1.790 UIU/ML Sammy Gonzalez, THIRD [id number] 00:00:00* Test Item Value Reference Range Interpretation Comme nts TSH, THIRD GENERATION (test code = 2821) 1.790 UIU/ML Sammy Gonzalez, THIRD [id number] 00:00:00* Test Item Value Reference Range Interpretation Comme nts TSH, THIRD GENERATION (test code = 2821) 1.790 UIU/ML Sammy Gonzalez, THIRD [id number] 00:00:00* Test Item Value Reference Range Interpretation Comme nts TSH, THIRD GENERATION (test code = 2821) 1.790 UIU/ML Sammy Gonzalez, THIRD [id number] 00:00:00* Test Item Value Reference Range Interpretation Comme nts TSH, THIRD GENERATION (test code = 2821) 1.790 UIU/ML Sammy Gonzalez, THIRD [id number] 00:00:00* Test Item Value Reference Range Interpretation Comme nts TSH, THIRD GENERATION (test code = 2821) 1.790 UIU/ML Sammy Gonzalez, THIRD [id number] 00:00:00* Test Item Value Reference Range Interpretation Comme nts TSH, THIRD GENERATION (test code = 2821) 1.790 UIU/ML Sammy Gonzalez, THIRD [id number] 00:00:00* Test Item Value Reference Range Interpretation Comme nts TSH, THIRD GENERATION (test code = 2821) 1.790 UIU/ML Sammy Gonzalez, THIRD [id number] 00:00:00* Test Item Value Reference Range Interpretation Comme nts TSH, THIRD GENERATION (test code = 2821) 1.790 UIU/ML Sammy Gonzalez, THIRD [id number] 00:00:00* Test Item Value Reference Range Interpretation Comme nts TSH, THIRD GENERATION (test code = 2821) 1.790 UIU/ML Sammy Gonzalez, THIRD [id number] 00:00:00* Test Item Value Reference Range Interpretation Comme nts TSH, THIRD GENERATION (test code = 2821) 1.790 UIU/ML Sammy LangTSH, THIRD [id number] 00:00:00* Test Item Value Reference Range Interpretation Comme nts TSH, THIRD GENERATION (test code = 2821) 1.790 UIU/ML Sammy LangTSH, THIRD [id number] 00:00:00* Test Item Value Reference Range Interpretation Comme nts TSH, THIRD GENERATION (test code = 2821) 1.790 UIU/ML Sammy F AustinOccult Blood, Fecal, [id number] 00:00:00* Test Item Value Reference Range Interpretation Comme nts Occult Blood, Fecal, IA (roberto t code = 26966-9) Negative Sammy F AustinOccult Blood, Fecal, [id number] 00:00:00* Test Item Value Reference Range Interpretation Comme nts Occult Blood, Fecal, IA (roberto t code = 49221-0) Negative Sammy F AustinOccult Blood, Fecal, [id number] 00:00:00* Test Item Value Reference Range Interpretation Comme nts Occult Blood, Fecal, IA (roberto t code = 36575-6) Negative Sammy F AustinOccult Blood, Fecal, [id number] 00:00:00* Test Item Value Reference Range Interpretation Comme nts Occult Blood, Fecal, IA (roberto t code = 91644-5) Negative Sammy F AustinOccult Blood, Fecal, [id number] 00:00:00* Test Item Value Reference Range Interpretation Comme nts Occult Blood, Fecal, IA (roberto t code = 08129-6) Negative Sammy F AustinOccult Blood, Fecal, [id number] 00:00:00* Test Item Value Reference Range Interpretation Comme nts Occult Blood, Fecal, IA (roberto t code = 64248-0) Negative Sammy F AustinOccult Blood, Fecal, [id number] 00:00:00* Test Item Value Reference Range Interpretation Comme nts Occult Blood, Fecal, IA (roberto t code = 10881-1) Negative Sammy F AustinOccult Blood, Fecal, [id number] 00:00:00* Test Item Value Reference Range Interpretation Comme nts Occult Blood, Fecal, IA (roberto t code = 69540-8) Negative Sammy F AustinOccult Blood, Fecal, [id number] 00:00:00* Test Item Value Reference Range Interpretation Comme nts Occult Blood, Fecal, IA (roberto t code = 57539-1) Negative Sammy F AustinOccult Blood, Fecal, [id number] 00:00:00* Test Item Value Reference Range Interpretation Comme nts Occult Blood, Fecal, IA (roberto t code = 36236-2) Negative Sammy F AustinOccult Blood, Fecal, [id number] 00:00:00* Test Item Value Reference Range Interpretation Comme nts Occult Blood, Fecal, IA (roberto t code = 98407-8) Negative Sammy F AustinOccult Blood, Fecal, [id number] 00:00:00* Test Item Value Reference Range Interpretation Comme nts Occult Blood, Fecal, IA (roberto t code = 04633-3) Negative Sammy F AustinOccult Blood, Fecal, [id number] 00:00:00* Test Item Value Reference Range Interpretation Comme nts Occult Blood, Fecal, IA (roberto t code = 67857-4) Negative Sammy F AustinCOMPREHENSIVE METABOLIC [id number] 00:00:00* Test Item Value Reference Range Interpretation Comme nts GLUCOSE (test code = 2217) 100 MG/DL BUN (test code = 2208) 14 MG/DL CREATININE (test code = 2214) 1.11 MG/DL eGFR (2020 CKD-EPI) (test co de = 26877) 76 ML/MIN/1.73 CALC BUN/CREAT (test code = 2235) 13 RATIO SODIUM (test code = 2231) 143 MEQ/L POTASSIUM (test code = 2228) 4.2 MEQ/L CHLORIDE (test code = 2215) 103 MEQ/L CARBON DIOXIDE (test code = 2206) 27 MEQ/L CALCIUM (test code = 2209) 9.8 MG/DL PROTEIN, TOTAL (test code = 2229) 7.1 G/DL ALBUMIN (test code = 2201) 5.1 G/DL CALC GLOBULIN (test code = 2240) 2.0 G/DL CALC A/G RATIO (test code = 2234) 2.6 RATIO BILIRUBIN, TOTAL (test code = 2207) 1.0 MG/DL ALKALINE PHOSPHATASE (test code = 2204) 67 U/L AST (test code = 2218) 25 U/L ALT (test code = 2219) 28 U/L Sammy LangHEMOGLOBIN [id number] 00:00:00* Test Item Value Reference Range Interpretation Comme stephen HEMOGLOBIN A1c (test code = 47224) 5.3 % Sammy LangLIPID [id number] 00:00:00* Test Item Value Reference Range Interpretation Comme nts CHOLESTEROL (test code = 2210) 204 MG/DL TRIGLYCERIDES (test code = 2232) 95 MG/DL HDL CHOLESTEROL (test code = 2220) 32 MG/DL CALC LDL CHOL (test code = 2237) 152 MG/DL RISK RATIO LDL/HDL (test cod e = 2238) 4.75 RATIO Sammy LangPSA, [id number] 00:00:00* Test Item Value Reference Range Interpretation Comme nts PSA, TOTAL (test code = 2606) 1.31 NG/ML Sammy LangCOMPREHENSIVE METABOLIC [id number] 00:00:00* Test Item Value Reference Range Interpretation Comme nts GLUCOSE (test code = 2217) 100 MG/DL BUN (test code = 2208) 14 MG/DL CREATININE (test code = 2214) 1.11 MG/DL eGFR (2020 CKD-EPI) (test co de = 01843) 76 ML/MIN/1.73 CALC BUN/CREAT (test code = 2235) 13 RATIO SODIUM (test code = 2231) 143 MEQ/L POTASSIUM (test code = 2228) 4.2 MEQ/L CHLORIDE (test code = 2215) 103 MEQ/L CARBON DIOXIDE (test code = 2206) 27 MEQ/L CALCIUM (test code = 2209) 9.8 MG/DL PROTEIN, TOTAL (test code = 2229) 7.1 G/DL ALBUMIN (test code = 2201) 5.1 G/DL CALC GLOBULIN (test code = 2240) 2.0 G/DL CALC A/G RATIO (test code = 2234) 2.6 RATIO BILIRUBIN, TOTAL (test code = 2207) 1.0 MG/DL ALKALINE PHOSPHATASE (test code = 2204) 67 U/L AST (test code = 2218) 25 U/L ALT (test code = 2219) 28 U/L Sammy LangHEMOGLOBIN [id number] 00:00:00* Test Item Value Reference Range Interpretation Comme nts HEMOGLOBIN A1c (test code = 88395) 5.3 % Sammy LangLIPID [id number] 00:00:00* Test Item Value Reference Range Interpretation Comme nts CHOLESTEROL (test code = 2210) 204 MG/DL TRIGLYCERIDES (test code = 2232) 95 MG/DL HDL CHOLESTEROL (test code = 2220) 32 MG/DL CALC LDL CHOL (test code = 2237) 152 MG/DL RISK RATIO LDL/HDL (test cod e = 2238) 4.75 RATIO Sammy LangPSA, [id number] 00:00:00* Test Item Value Reference Range Interpretation Comme nts PSA, TOTAL (test code = 2606) 1.31 NG/ML Sammy LangCOMPREHENSIVE METABOLIC [id number] 00:00:00* Test Item Value Reference Range Interpretation Comme nts GLUCOSE (test code = 2217) 100 MG/DL BUN (test code = 2208) 14 MG/DL CREATININE (test code = 2214) 1.11 MG/DL eGFR (2020 CKD-EPI) (test co de = 22459) 76 ML/MIN/1.73 CALC BUN/CREAT (test code = 2235) 13 RATIO SODIUM (test code = 2231) 143 MEQ/L POTASSIUM (test code = 2228) 4.2 MEQ/L CHLORIDE (test code = 2215) 103 MEQ/L CARBON DIOXIDE (test code = 2206) 27 MEQ/L CALCIUM (test code = 2209) 9.8 MG/DL PROTEIN, TOTAL (test code = 2229) 7.1 G/DL ALBUMIN (test code = 2201) 5.1 G/DL CALC GLOBULIN (test code = 2240) 2.0 G/DL CALC A/G RATIO (test code = 2234) 2.6 RATIO BILIRUBIN, TOTAL (test code = 2207) 1.0 MG/DL ALKALINE PHOSPHATASE (test code = 2204) 67 U/L AST (test code = 2218) 25 U/L ALT (test code = 2219) 28 U/L Sammy LangHEMOGLOBIN [id number] 00:00:00* Test Item Value Reference Range Interpretation Comme nts HEMOGLOBIN A1c (test code = 62717) 5.3 % Sammy LangLIPID [id number] 00:00:00* Test Item Value Reference Range Interpretation Comme nts CHOLESTEROL (test code = 2210) 204 MG/DL TRIGLYCERIDES (test code = 2232) 95 MG/DL HDL CHOLESTEROL (test code = 2220) 32 MG/DL CALC LDL CHOL (test code = 2237) 152 MG/DL RISK RATIO LDL/HDL (test cod e = 2238) 4.75 RATIO Sammy LangPSA, [id number] 00:00:00* Test Item Value Reference Range Interpretation Comme nts PSA, TOTAL (test code = 2606) 1.31 NG/ML Sammy LangCOMPREHENSIVE METABOLIC [id number] 00:00:00* Test Item Value Reference Range Interpretation Comme nts GLUCOSE (test code = 2217) 100 MG/DL BUN (test code = 2208) 14 MG/DL CREATININE (test code = 2214) 1.11 MG/DL eGFR (2020 CKD-EPI) (test co de = 47393) 76 ML/MIN/1.73 CALC BUN/CREAT (test code = 2235) 13 RATIO SODIUM (test code = 2231) 143 MEQ/L POTASSIUM (test code = 2228) 4.2 MEQ/L CHLORIDE (test code = 2215) 103 MEQ/L CARBON DIOXIDE (test code = 2206) 27 MEQ/L CALCIUM (test code = 2209) 9.8 MG/DL PROTEIN, TOTAL (test code = 2229) 7.1 G/DL ALBUMIN (test code = 2201) 5.1 G/DL CALC GLOBULIN (test code = 2240) 2.0 G/DL CALC A/G RATIO (test code = 2234) 2.6 RATIO BILIRUBIN, TOTAL (test code = 2207) 1.0 MG/DL ALKALINE PHOSPHATASE (test code = 2204) 67 U/L AST (test code = 2218) 25 U/L ALT (test code = 2219) 28 U/L Sammy LangHEMOGLOBIN [id number] 00:00:00* Test Item Value Reference Range Interpretation Comme nts HEMOGLOBIN A1c (test code = 72304) 5.3 % Sammy LangLIPID [id number] 00:00:00* Test Item Value Reference Range Interpretation Comme nts CHOLESTEROL (test code = 2210) 204 MG/DL TRIGLYCERIDES (test code = 2232) 95 MG/DL HDL CHOLESTEROL (test code = 2220) 32 MG/DL CALC LDL CHOL (test code = 2237) 152 MG/DL RISK RATIO LDL/HDL (test cod e = 2238) 4.75 RATIO Sammy LangPSA, [id number] 00:00:00* Test Item Value Reference Range Interpretation Comme nts PSA, TOTAL (test code = 2606) 1.31 NG/ML Sammy LangCOMPREHENSIVE METABOLIC [id number] 00:00:00* Test Item Value Reference Range Interpretation Comme nts GLUCOSE (test code = 2217) 100 MG/DL BUN (test code = 2208) 14 MG/DL CREATININE (test code = 2214) 1.11 MG/DL eGFR (2020 CKD-EPI) (test co de = 84340) 76 ML/MIN/1.73 CALC BUN/CREAT (test code = 2235) 13 RATIO SODIUM (test code = 2231) 143 MEQ/L POTASSIUM (test code = 2228) 4.2 MEQ/L CHLORIDE (test code = 2215) 103 MEQ/L CARBON DIOXIDE (test code = 2206) 27 MEQ/L CALCIUM (test code = 2209) 9.8 MG/DL PROTEIN, TOTAL (test code = 2229) 7.1 G/DL ALBUMIN (test code = 2201) 5.1 G/DL CALC GLOBULIN (test code = 2240) 2.0 G/DL CALC A/G RATIO (test code = 2234) 2.6 RATIO BILIRUBIN, TOTAL (test code = 2207) 1.0 MG/DL ALKALINE PHOSPHATASE (test code = 2204) 67 U/L AST (test code = 2218) 25 U/L ALT (test code = 2219) 28 U/L Sammy LangHEMOGLOBIN [id number] 00:00:00* Test Item Value Reference Range Interpretation Comme stephen HEMOGLOBIN A1c (test code = 91538) 5.3 % Sammy LangLIPID [id number] 00:00:00* Test Item Value Reference Range Interpretation Comme nts CHOLESTEROL (test code = 2210) 204 MG/DL TRIGLYCERIDES (test code = 2232) 95 MG/DL HDL CHOLESTEROL (test code = 2220) 32 MG/DL CALC LDL CHOL (test code = 2237) 152 MG/DL RISK RATIO LDL/HDL (test cod e = 2238) 4.75 RATIO Sammy LangPSA, [id number] 00:00:00* Test Item Value Reference Range Interpretation Comme nts PSA, TOTAL (test code = 2606) 1.31 NG/ML Sammy LangCOMPREHENSIVE METABOLIC [id number] 00:00:00* Test Item Value Reference Range Interpretation Comme nts GLUCOSE (test code = 2217) 100 MG/DL BUN (test code = 2208) 14 MG/DL CREATININE (test code = 2214) 1.11 MG/DL eGFR (2020 CKD-EPI) (test co de = 50853) 76 ML/MIN/1.73 CALC BUN/CREAT (test code = 2235) 13 RATIO SODIUM (test code = 2231) 143 MEQ/L POTASSIUM (test code = 2228) 4.2 MEQ/L CHLORIDE (test code = 2215) 103 MEQ/L CARBON DIOXIDE (test code = 2206) 27 MEQ/L CALCIUM (test code = 2209) 9.8 MG/DL PROTEIN, TOTAL (test code = 2229) 7.1 G/DL ALBUMIN (test code = 2201) 5.1 G/DL CALC GLOBULIN (test code = 2240) 2.0 G/DL CALC A/G RATIO (test code = 2234) 2.6 RATIO BILIRUBIN, TOTAL (test code = 2207) 1.0 MG/DL ALKALINE PHOSPHATASE (test code = 2204) 67 U/L AST (test code = 2218) 25 U/L ALT (test code = 2219) 28 U/L Sammy LangHEMOGLOBIN [id number] 00:00:00* Test Item Value Reference Range Interpretation Comme nts HEMOGLOBIN A1c (test code = 11317) 5.3 % Sammy LangLIPID [id number] 00:00:00* Test Item Value Reference Range Interpretation Comme nts CHOLESTEROL (test code = 2210) 204 MG/DL TRIGLYCERIDES (test code = 2232) 95 MG/DL HDL CHOLESTEROL (test code = 2220) 32 MG/DL CALC LDL CHOL (test code = 2237) 152 MG/DL RISK RATIO LDL/HDL (test cod e = 2238) 4.75 RATIO Sammy LangPSA, [id number] 00:00:00* Test Item Value Reference Range Interpretation Comme stephen PSA, TOTAL (test code = 2606) 1.31 NG/ML Sammy LangCOMPREHENSIVE METABOLIC [id number] 00:00:00* Test Item Value Reference Range Interpretation Comme nts GLUCOSE (test code = 2217) 100 MG/DL BUN (test code = 2208) 14 MG/DL CREATININE (test code = 2214) 1.11 MG/DL eGFR (2020 CKD-EPI) (test co de = 53674) 76 ML/MIN/1.73 CALC BUN/CREAT (test code = 2235) 13 RATIO SODIUM (test code = 2231) 143 MEQ/L POTASSIUM (test code = 2228) 4.2 MEQ/L CHLORIDE (test code = 2215) 103 MEQ/L CARBON DIOXIDE (test code = 2206) 27 MEQ/L CALCIUM (test code = 2209) 9.8 MG/DL PROTEIN, TOTAL (test code = 2229) 7.1 G/DL ALBUMIN (test code = 2201) 5.1 G/DL CALC GLOBULIN (test code = 2240) 2.0 G/DL CALC A/G RATIO (test code = 2234) 2.6 RATIO BILIRUBIN, TOTAL (test code = 2207) 1.0 MG/DL ALKALINE PHOSPHATASE (test code = 2204) 67 U/L AST (test code = 2218) 25 U/L ALT (test code = 2219) 28 U/L Sammy LangHEMOGLOBIN [id number] 00:00:00* Test Item Value Reference Range Interpretation Comme stephen HEMOGLOBIN A1c (test code = 99758) 5.3 % Sammy LangLIPID [id number] 00:00:00* Test Item Value Reference Range Interpretation Comme nts CHOLESTEROL (test code = 2210) 204 MG/DL TRIGLYCERIDES (test code = 2232) 95 MG/DL HDL CHOLESTEROL (test code = 2220) 32 MG/DL CALC LDL CHOL (test code = 2237) 152 MG/DL RISK RATIO LDL/HDL (test cod e = 2238) 4.75 RATIO Sammy LangPSA, [id number] 00:00:00* Test Item Value Reference Range Interpretation Comme nts PSA, TOTAL (test code = 2606) 1.31 NG/ML Sammy LangCOMPREHENSIVE METABOLIC [id number] 00:00:00* Test Item Value Reference Range Interpretation Comme nts GLUCOSE (test code = 2217) 100 MG/DL BUN (test code = 2208) 14 MG/DL CREATININE (test code = 2214) 1.11 MG/DL eGFR (2020 CKD-EPI) (test co de = 74102) 76 ML/MIN/1.73 CALC BUN/CREAT (test code = 2235) 13 RATIO SODIUM (test code = 2231) 143 MEQ/L POTASSIUM (test code = 2228) 4.2 MEQ/L CHLORIDE (test code = 2215) 103 MEQ/L CARBON DIOXIDE (test code = 2206) 27 MEQ/L CALCIUM (test code = 2209) 9.8 MG/DL PROTEIN, TOTAL (test code = 2229) 7.1 G/DL ALBUMIN (test code = 2201) 5.1 G/DL CALC GLOBULIN (test code = 2240) 2.0 G/DL CALC A/G RATIO (test code = 2234) 2.6 RATIO BILIRUBIN, TOTAL (test code = 2207) 1.0 MG/DL ALKALINE PHOSPHATASE (test code = 2204) 67 U/L AST (test code = 2218) 25 U/L ALT (test code = 2219) 28 U/L Sammy LangHEMOGLOBIN [id number] 00:00:00* Test Item Value Reference Range Interpretation Comme stephen HEMOGLOBIN A1c (test code = 81447) 5.3 % Sammy LangLIPID [id number] 00:00:00* Test Item Value Reference Range Interpretation Comme nts CHOLESTEROL (test code = 2210) 204 MG/DL TRIGLYCERIDES (test code = 2232) 95 MG/DL HDL CHOLESTEROL (test code = 2220) 32 MG/DL CALC LDL CHOL (test code = 2237) 152 MG/DL RISK RATIO LDL/HDL (test cod e = 2238) 4.75 RATIO Sammy LangPSA, [id number] 00:00:00* Test Item Value Reference Range Interpretation Comme nts PSA, TOTAL (test code = 2606) 1.31 NG/ML Sammy LangCOMPREHENSIVE METABOLIC [id number] 00:00:00* Test Item Value Reference Range Interpretation Comme nts GLUCOSE (test code = 2217) 100 MG/DL BUN (test code = 2208) 14 MG/DL CREATININE (test code = 2214) 1.11 MG/DL eGFR (2020 CKD-EPI) (test co de = 18946) 76 ML/MIN/1.73 CALC BUN/CREAT (test code = 2235) 13 RATIO SODIUM (test code = 2231) 143 MEQ/L POTASSIUM (test code = 2228) 4.2 MEQ/L CHLORIDE (test code = 2215) 103 MEQ/L CARBON DIOXIDE (test code = 2206) 27 MEQ/L CALCIUM (test code = 2209) 9.8 MG/DL PROTEIN, TOTAL (test code = 2229) 7.1 G/DL ALBUMIN (test code = 2201) 5.1 G/DL CALC GLOBULIN (test code = 2240) 2.0 G/DL CALC A/G RATIO (test code = 2234) 2.6 RATIO BILIRUBIN, TOTAL (test code = 2207) 1.0 MG/DL ALKALINE PHOSPHATASE (test code = 2204) 67 U/L AST (test code = 2218) 25 U/L ALT (test code = 2219) 28 U/L Sammy LangHEMOGLOBIN [id number] 00:00:00* Test Item Value Reference Range Interpretation Comme nts HEMOGLOBIN A1c (test code = 68307) 5.3 % Sammy LangLIPID [id number] 00:00:00* Test Item Value Reference Range Interpretation Comme nts CHOLESTEROL (test code = 2210) 204 MG/DL TRIGLYCERIDES (test code = 2232) 95 MG/DL HDL CHOLESTEROL (test code = 2220) 32 MG/DL CALC LDL CHOL (test code = 2237) 152 MG/DL RISK RATIO LDL/HDL (test cod e = 2238) 4.75 RATIO Sammy LangPSA, [id number] 00:00:00* Test Item Value Reference Range Interpretation Comme nts PSA, TOTAL (test code = 2606) 1.31 NG/ML Sammy LangCOMPREHENSIVE METABOLIC [id number] 00:00:00* Test Item Value Reference Range Interpretation Comme nts GLUCOSE (test code = 2217) 100 MG/DL BUN (test code = 2208) 14 MG/DL CREATININE (test code = 2214) 1.11 MG/DL eGFR (2020 CKD-EPI) (test co de = 20266) 76 ML/MIN/1.73 CALC BUN/CREAT (test code = 2235) 13 RATIO SODIUM (test code = 223) 143 MEQ/L POTASSIUM (test code = 2228) 4.2 MEQ/L CHLORIDE (test code = 2215) 103 MEQ/L CARBON DIOXIDE (test code = 2206) 27 MEQ/L CALCIUM (test code = 2209) 9.8 MG/DL PROTEIN, TOTAL (test code = 222) 7.1 G/DL ALBUMIN (test code = 2201) 5.1 G/DL CALC GLOBULIN (test code = 2240) 2.0 G/DL CALC A/G RATIO (test code = 2234) 2.6 RATIO BILIRUBIN, TOTAL (test code = 2207) 1.0 MG/DL ALKALINE PHOSPHATASE (test code = 2204) 67 U/L AST (test code = 2218) 25 U/L ALT (test code = 2219) 28 U/L Sammy LangHEMOGLOBIN [id number] 00:00:00* Test Item Value Reference Range Interpretation Comme nts HEMOGLOBIN A1c (test code = 07932) 5.3 % Sammy LangLIPID [id number] 00:00:00* Test Item Value Reference Range Interpretation Comme nts CHOLESTEROL (test code = 2210) 204 MG/DL TRIGLYCERIDES (test code = 2232) 95 MG/DL HDL CHOLESTEROL (test code = 2220) 32 MG/DL CALC LDL CHOL (test code = 2237) 152 MG/DL RISK RATIO LDL/HDL (test cod e = 2238) 4.75 RATIO Sammy LangPSA, [id number] 00:00:00* Test Item Value Reference Range Interpretation Comme nts PSA, TOTAL (test code = 2606) 1.31 NG/ML Sammy LangCOMPREHENSIVE METABOLIC [id number] 00:00:00* Test Item Value Reference Range Interpretation Comme nts GLUCOSE (test code = 2217) 100 MG/DL BUN (test code = 2208) 14 MG/DL CREATININE (test code = 2214) 1.11 MG/DL eGFR (2020 CKD-EPI) (test co de = 62077) 76 ML/MIN/1.73 CALC BUN/CREAT (test code = 2235) 13 RATIO SODIUM (test code = 2231) 143 MEQ/L POTASSIUM (test code = 2228) 4.2 MEQ/L CHLORIDE (test code = 2215) 103 MEQ/L CARBON DIOXIDE (test code = 2206) 27 MEQ/L CALCIUM (test code = 2209) 9.8 MG/DL PROTEIN, TOTAL (test code = 2229) 7.1 G/DL ALBUMIN (test code = 2201) 5.1 G/DL CALC GLOBULIN (test code = 2240) 2.0 G/DL CALC A/G RATIO (test code = 2234) 2.6 RATIO BILIRUBIN, TOTAL (test code = 2207) 1.0 MG/DL ALKALINE PHOSPHATASE (test code = 2204) 67 U/L AST (test code = 2218) 25 U/L ALT (test code = 2219) 28 U/L Sammy LangHEMOGLOBIN [id number] 00:00:00* Test Item Value Reference Range Interpretation Comme nts HEMOGLOBIN A1c (test code = 37248) 5.3 % Sammy LangLIPID [id number] 00:00:00* Test Item Value Reference Range Interpretation Comme nts CHOLESTEROL (test code = 2210) 204 MG/DL TRIGLYCERIDES (test code = 2232) 95 MG/DL HDL CHOLESTEROL (test code = 2220) 32 MG/DL CALC LDL CHOL (test code = 2237) 152 MG/DL RISK RATIO LDL/HDL (test cod e = 2238) 4.75 RATIO Sammy LangPSA, [id number] 00:00:00* Test Item Value Reference Range Interpretation Comme nts PSA, TOTAL (test code = 2606) 1.31 NG/ML Sammy LangCOMPREHENSIVE METABOLIC [id number] 00:00:00* Test Item Value Reference Range Interpretation Comme nts GLUCOSE (test code = 2217) 100 MG/DL BUN (test code = 2208) 14 MG/DL CREATININE (test code = 2214) 1.11 MG/DL eGFR (2020 CKD-EPI) (test co de = 27513) 76 ML/MIN/1.73 CALC BUN/CREAT (test code = 2235) 13 RATIO SODIUM (test code = 2231) 143 MEQ/L POTASSIUM (test code = 2228) 4.2 MEQ/L CHLORIDE (test code = 2215) 103 MEQ/L CARBON DIOXIDE (test code = 2206) 27 MEQ/L CALCIUM (test code = 2209) 9.8 MG/DL PROTEIN, TOTAL (test code = 2229) 7.1 G/DL ALBUMIN (test code = 2201) 5.1 G/DL CALC GLOBULIN (test code = 2240) 2.0 G/DL CALC A/G RATIO (test code = 2234) 2.6 RATIO BILIRUBIN, TOTAL (test code = 2207) 1.0 MG/DL ALKALINE PHOSPHATASE (test code = 2204) 67 U/L AST (test code = 2218) 25 U/L ALT (test code = 2219) 28 U/L Sammy LangHEMOGLOBIN [id number] 00:00:00* Test Item Value Reference Range Interpretation Comme nts HEMOGLOBIN A1c (test code = 23680) 5.3 % Sammy LangLIPID [id number] 00:00:00* Test Item Value Reference Range Interpretation Comme nts CHOLESTEROL (test code = 2210) 204 MG/DL TRIGLYCERIDES (test code = 2232) 95 MG/DL HDL CHOLESTEROL (test code = 2220) 32 MG/DL CALC LDL CHOL (test code = 2237) 152 MG/DL RISK RATIO LDL/HDL (test cod e = 2238) 4.75 RATIO Sammy LangPSA, [id number] 00:00:00* Test Item Value Reference Range Interpretation Comme nts PSA, TOTAL (test code = 2606) 1.31 NG/ML Sammy LangCOMPREHENSIVE METABOLIC [id number] 00:00:00* Test Item Value Reference Range Interpretation Comme nts GLUCOSE (test code = 2217) 100 MG/DL BUN (test code = 2208) 14 MG/DL CREATININE (test code = 2214) 1.11 MG/DL eGFR (2020 CKD-EPI) (test co de = 64811) 76 ML/MIN/1.73 CALC BUN/CREAT (test code = 2235) 13 RATIO SODIUM (test code = 2231) 143 MEQ/L POTASSIUM (test code = 2228) 4.2 MEQ/L CHLORIDE (test code = 2215) 103 MEQ/L CARBON DIOXIDE (test code = 2206) 27 MEQ/L CALCIUM (test code = 2209) 9.8 MG/DL PROTEIN, TOTAL (test code = 2229) 7.1 G/DL ALBUMIN (test code = 2201) 5.1 G/DL CALC GLOBULIN (test code = 2240) 2.0 G/DL CALC A/G RATIO (test code = 2234) 2.6 RATIO BILIRUBIN, TOTAL (test code = 2207) 1.0 MG/DL ALKALINE PHOSPHATASE (test code = 2204) 67 U/L AST (test code = 2218) 25 U/L ALT (test code = 2219) 28 U/L Sammy LangHEMOGLOBIN [id number] 00:00:00* Test Item Value Reference Range Interpretation Comme stephen HEMOGLOBIN A1c (test code = 32163) 5.3 % Sammy LangLIPID [id number] 00:00:00* Test Item Value Reference Range Interpretation Comme nts CHOLESTEROL (test code = 2210) 204 MG/DL TRIGLYCERIDES (test code = 2232) 95 MG/DL HDL CHOLESTEROL (test code = 2220) 32 MG/DL CALC LDL CHOL (test code = 2237) 152 MG/DL RISK RATIO LDL/HDL (test cod e = 2238) 4.75 RATIO Sammy LangPSA, [id number] 00:00:00* Test Item Value Reference Range Interpretation Comme nts PSA, TOTAL (test code = 2606) 1.31 NG/ML Sammy Miller AustinOccult Blood, Fecal, [id number] 00:00:00* Test Item Value Reference Range Interpretation Comme nts Occult Blood, Fecal, [place] (roberto t code = 68299-4) TNP Sammy Miller AustinOccult Blood, Fecal, [id number] 00:00:00* Test Item Value Reference Range Interpretation Comme nts Occult Blood, Fecal, IA (roberto t code = 14705-5) TNP Sammy Miller AustinOccult Blood, Fecal, [id number] 00:00:00* Test Item Value Reference Range Interpretation Comme nts Occult Blood, Fecal, IA (roberto t code = 90882-8) TNP Sammy F AustinOccult Blood, Fecal, [id number] 00:00:00* Test Item Value Reference Range Interpretation Comme nts Occult Blood, Fecal, IA (roberto t code = 78164-2) TNP Sammy F AustinOccult Blood, Fecal, [id number] 00:00:00* Test Item Value Reference Range Interpretation Comme nts Occult Blood, Fecal, IA (roberto t code = 10769-0) TNP Sammy F AustinOccult Blood, Fecal, [id number] 00:00:00* Test Item Value Reference Range Interpretation Comme nts Occult Blood, Fecal, IA (roberto t code = 38270-8) TNP Sammy F AustinOccult Blood, Fecal, [id number] 00:00:00* Test Item Value Reference Range Interpretation Comme nts Occult Blood, Fecal, IA (roberto t code = 57674-9) TNP Sammy F AustinOccult Blood, Fecal, [id number] 00:00:00* Test Item Value Reference Range Interpretation Comme nts Occult Blood, Fecal, IA (roberto t code = 50796-0) TNP Sammy F AustinOccult Blood, Fecal, [id number] 00:00:00* Test Item Value Reference Range Interpretation Comme nts Occult Blood, Fecal, IA (roberto t code = 36140-1) TNP Sammy F AustinOccult Blood, Fecal, [id number] 00:00:00* Test Item Value Reference Range Interpretation Comme nts Occult Blood, Fecal, IA (roberto t code = 89943-6) TNP Sammy F AustinOccult Blood, Fecal, [id number] 00:00:00* Test Item Value Reference Range Interpretation Comme nts Occult Blood, Fecal, IA (roberto t code = 99529-7) TNP Sammy F AustinOccult Blood, Fecal, [id number] 00:00:00* Test Item Value Reference Range Interpretation Comme nts Occult Blood, Fecal, IA (roberto t code = 98344-9) TNP Sammy F AustinOccult Blood, Fecal, [id number] 00:00:00* Test Item Value Reference Range Interpretation Comme nts Occult Blood, Fecal, IA (roberto t code = 71602-9) TNP Sammy F AustinPOCT GLUCOSE (AUTOMATED)2022-11-08 18:30:25* Test Item Value Reference Range Interpretation Comme nts POCT GLU (test code = 0053427713) 113 mg/dL 70-110 H Lab Interpretation (test cod e = 17395-4) [facility]-08 18:30:25* Test Item Value Reference Range Interpretation Comme nts POCT GLU (test code = 6562192311) 113 mg/dL 70-110 H Lab Interpretation (test cod e = 04378-3) [facility] Metabolic [id number] 06:21:50* Test Item Value Reference Range Interpretation Comme nts NA (test code = 4440474890) 137 mmol/L 135-145 K (test code = 4627576995) 4.4 mmol/L 3.5-5.0 CL (test code = 1552507214) 100 mmol/L 98-108 CO2 TOTAL (test code = 5396396792) 30 mmol/L 23-31 AGAP (test code = 6530348695) 2-16 BUN (test code = 8785109158) 11 mg/dL 7-23 GLUCOSE (test code = 5535826970) 109 mg/dL 70-110 CREATININE (test code = 6561969914) 1.01 mg/dL 0.60-1.25 TOTAL BILI (test code = 4696556892) 0.7 mg/dL 0.1-1.1 CALCIUM (test code = 2448049010) 9.9 mg/dL 8.6-10.6 T PROTEIN (test code = 0772240526) 7.3 g/dL 6.3-8.2 ALBUMIN (test code = 5436460584) 4.8 g/dL 3.5-5.0 ALK PHOS (test code = 3804491754) 60 U/L 34-122 ALTv (test code = 1742-6) 31 U/L 5-50 AST(SGOT) (test code = 2495665283) 29 U/L 13-40 eGFR (test code = 7930627139) mL/min/1.73m2 ASHLEIGH (test code = ASHLEIGH) Association of Glomerular Filtration Rate (GFR) and Staging of Kidney Disease* + + +- +| GFR (mL/min/1.73 m2) ?| With Kidney Damage ?| ?Without Kidney Damage+ ------+ ----+ ------+| ?>90 ?| ?Stage one ?| ? Normal ?+ -+ + -+| ?60-89 ?| ?Stage two ?| ? Decreased GFR ? + + +- +| ?30-59 ?| ?Stage three ?| ? Stage three ? + + +- +| ?15-29 ?| ?Stage four ? | ? Stage four ?+ -+ + -+| ?<15 (or dialysis) ? ?| ?Stage five ? | ? Stage five ?+ -+ + -+ *Each stage assumes the associated GFR level has been in effect for at least three months. ?Stages 1 to 5, with or without kidney disease, indicate chronic kidney disease. Notes: Determination of stages one and two (with eGFR >59mL/min/1.73 m2) requires estimation of kidney damage for at least three months as defined by structural or functional abnormalities of the kidney, manifested by either:Pathological abnormalities or Markers of kidney damage (including abnormalities in the composition of the blood or urine or abnormalities in imaging tests). [facility] [id number] 06:21:50* Test Item Value Reference Range Interpretation Comme nts NA (test code = 7664924773) 137 mmol/L 135-145 K (test code = 2660054572) 4.4 mmol/L 3.5-5.0 CL (test code = 9713038498) 100 mmol/L 98-108 CO2 TOTAL (test code = 2682639074) 30 mmol/L 23-31 AGAP (test code = 3922434023) 2-16 BUN (test code = 6706888306) 11 mg/dL 7-23 GLUCOSE (test code = 9201877465) 109 mg/dL 70-110 CREATININE (test code = 9072819343) 1.01 mg/dL 0.60-1.25 TOTAL BILI (test code = 4636060629) 0.7 mg/dL 0.1-1.1 CALCIUM (test code = 8420099775) 9.9 mg/dL 8.6-10.6 T PROTEIN (test code = 9001424047) 7.3 g/dL 6.3-8.2 ALBUMIN (test code = 7390327229) 4.8 g/dL 3.5-5.0 ALK PHOS (test code = 8467245676) 60 U/L 34-122 ALTv (test code = 1742-6) 31 U/L 5-50 AST(SGOT) (test code = 0880608510) 29 U/L 13-40 eGFR (test code = 3980122584) mL/min/1.73m2 ASHLEIGH (test code = ASHLEIGH) Association of Glomerular Filtration Rate (GFR) and Staging of Kidney Disease* + + +- +| GFR (mL/min/1.73 m2) ?| With Kidney Damage ?| ?Without Kidney Damage+ ------+ ----+ ------+| ?>90 ?| ?Stage one ?| ? Normal ?+ -+ + -+| ?60-89 ?| ?Stage two ?| ? Decreased GFR ? + + +- +| ?30-59 ?| ?Stage three ?| ? Stage three ? + + +- +| ?15-29 ?| ?Stage four ? | ? Stage four ?+ -+ + -+| ?<15 (or dialysis) ? ?| ?Stage five ? | ? Stage five ?+ -+ + -+ *Each stage assumes the associated GFR level has been in effect for at least three months. ?Stages 1 to 5, with or without kidney disease, indicate chronic kidney disease. Notes: Determination of stages one and two (with eGFR >59mL/min/1.73 m2) requires estimation of kidney damage for at least three months as defined by structural or functional abnormalities of the kidney, manifested by either:Pathological abnormalities or Markers of kidney damage (including abnormalities in the composition of the blood or urine or abnormalities in imaging tests). [facility], [id number] 06:21:30* Test Item Value Reference Range Interpretation Comme nts LIPASE (test code = 7916636114) 205 U/L 0-220 Lab Interpretation (test cod e = 78790-9) Normal [facility], [id number] 06:21:30* Test Item Value Reference Range Interpretation Comme nts LIPASE (test code = 9756479340) 205 U/L 0-220 Lab Interpretation (test cod e = 33248-7) [facility] with [id number] 06:12:07* Test Item Value Reference Range Interpretation Comme nts WBC (test code = 6690-2) See_Comment H [Automated messa ge] The system which generated this result transmitted reference range: 4.20 - 10.70 10*3/?L. The reference range was not used to interpret this result as normal/abnormal. RBC (test code = 789-8) See_Comment [Automated messa ge] The system which generated this result transmitted reference range: 4.26 - 5.52 10*6/?L. The reference range was not used to interpret this result as normal/abnormal. HGB (test code = 718-7) 14.7 g/dL 12.2-16.4 HCT (test code = 4544-3) 41.3 % 38.4-49.3 MCV (test code = 787-2) 88.6 fL 81.7-95.6 MCH (test code = 785-6) 31.5 pg 26.1-32.7 MCHC (test code = 786-4) 35.6 g/dL 31.2-35.0 H RDW-SD (test code = 70398-3) 38.1 fL 38.5-51.6 L RDW-CV (test code = 788-0) 11.9 % 12.1-15.4 L PLT (test code = 777-3) See_Comment [Automated messa ge] The system which generated this result transmitted reference range: 150 - 328 10*3/?L. The reference range was not used to interpret this result as normal/abnormal. MPV (test code = 10369-9) 10.3 fL 9.8-13.0 NRBC/100 WBC (test code = 9109441333) See_Comment [Automated me ssage] The system which generated this result transmitted reference range: 0.0 - 10.0 /100 WBCs. The reference range was not used to interpret this result as normal/abnormal. NRBC x10^3 (test code = 5100226561) See_Comment [Automated messa ge] The system which generated this result transmitted reference range: 10*3/?L. The reference range was not used to interpret this result as normal/abnormal. GRAN MAT (NEUT) % (test code = 770-8) 69.1 % IMM GRAN % (test code = 6456070966) 0.40 % LYMPH % (test code = 736-9) 20.7 % MONO % (test code = 5905-5) 6.7 % EOS % (test code = 713-8) 2.6 % BASO % (test code = 706-2) 0.5 % GRAN MAT x10^3(ANC) (test code = 4849587282) 7.69 10*3/uL 1.99-6.95 H IMM GRAN x10^3 (test code = 9192854739) 0.04 10*3/uL 0.00-0.06 LYMPH x10^3 (test code = 731-0) 2.30 10*3/uL 1.09-3.23 MONO x10^3 (test code = 742-7) 0.75 10*3/uL 0.36-1.02 EOS x10^3 (test code = 711-2) 0.29 10*3/uL 0.06-0.53 BASO x10^3 (test code = 704-7) 0.06 10*3/uL 0.01-0.09 Lab Interpretation (test code = 73285-2) Abnormal [facility] with [id number] 06:12:07* Test Item Value Reference Range Interpretation Comme nts WBC (test code = 6690-2) See_Comment H [Automated messa ge] The system which generated this result transmitted reference range: 4.20 - 10.70 10*3/?L. The reference range was not used to interpret this result as normal/abnormal. RBC (test code = 789-8) See_Comment [Automated messa ge] The system which generated this result transmitted reference range: 4.26 - 5.52 10*6/?L. The reference range was not used to interpret this result as normal/abnormal. HGB (test code = 718-7) 14.7 g/dL 12.2-16.4 HCT (test code = 4544-3) 41.3 % 38.4-49.3 MCV (test code = 787-2) 88.6 fL 81.7-95.6 MCH (test code = 785-6) 31.5 pg 26.1-32.7 MCHC (test code = 786-4) 35.6 g/dL 31.2-35.0 H RDW-SD (test code = 05841-9) 38.1 fL 38.5-51.6 L RDW-CV (test code = 788-0) 11.9 % 12.1-15.4 L PLT (test code = 777-3) See_Comment [Automated messa ge] The system which generated this result transmitted reference range: 150 - 328 10*3/?L. The reference range was not used to interpret this result as normal/abnormal. MPV (test code = 37705-6) 10.3 fL 9.8-13.0 NRBC/100 WBC (test code = 9430980929) See_Comment [Automated FRUCT ssage] The system which generated this result transmitted reference range: 0.0 - 10.0 /100 WBCs. The reference range was not used to interpret this result as normal/abnormal. NRBC x10^3 (test code = 0907836469) See_Comment [Automated [employer] ge] The system which generated this result transmitted reference range: 10*3/?L. The reference range was not used to interpret this result as normal/abnormal. GRAN MAT (NEUT) % (test code = 770-8) 69.1 % IMM GRAN % (test code = 9351665684) 0.40 % LYMPH % (test code = 736-9) 20.7 % MONO % (test code = 5905-5) 6.7 % EOS % (test code = 713-8) 2.6 % BASO % (test code = 706-2) 0.5 % GRAN MAT x10^3(ANC) (test code = 6707754420) 7.69 10*3/uL 1.99-6.95 H IMM GRAN x10^3 (test code = 7149581432) 0.04 10*3/uL 0.00-0.06 LYMPH x10^3 (test code = 731-0) 2.30 10*3/uL 1.09-3.23 MONO x10^3 (test code = 742-7) 0.75 10*3/uL 0.36-1.02 EOS x10^3 (test code = 711-2) 0.29 10*3/uL 0.06-0.53 BASO x10^3 (test code = 704-7) 0.06 10*3/uL 0.01-0.09 Lab Interpretation (test code = 86442-3) [id number]:00* Test Item Value Reference Range Interpretation Comme nts CHOLESTEROL (test code = 2210) 209 MG/DL TRIGLYCERIDES (test code = 2232) 261 MG/DL HDL CHOLESTEROL (test code = 2220) 25 MG/DL CALC LDL CHOL (test code = 2237) 144 MG/DL RISK RATIO LDL/HDL (test cod e = 2238) 5.76 RATIO [facility] [place] [id number] 00:00:00* Test Item Value Reference Range Interpretation Comme nts CHOLESTEROL (test code = 2210) 209 MG/DL TRIGLYCERIDES (test code = 2232) 261 MG/DL HDL CHOLESTEROL (test code = 2220) 25 MG/DL CALC LDL CHOL (test code = 2237) 144 MG/DL RISK RATIO LDL/HDL (test cod e = 2238) 5.76 RATIO Sammy Miller AustinLIPID [id number] 00:00:00* Test Item Value Reference Range Interpretation Comme nts CHOLESTEROL (test code = 2210) 209 MG/DL TRIGLYCERIDES (test code = 2232) 261 MG/DL HDL CHOLESTEROL (test code = 2220) 25 MG/DL CALC LDL CHOL (test code = 2237) 144 MG/DL RISK RATIO LDL/HDL (test cod e = 2238) 5.76 RATIO Sammy Miller AustinLIPID [id number] 00:00:00* Test Item Value Reference Range Interpretation Comme nts CHOLESTEROL (test code = 2210) 209 MG/DL TRIGLYCERIDES (test code = 2232) 261 MG/DL HDL CHOLESTEROL (test code = 2220) 25 MG/DL CALC LDL CHOL (test code = 2237) 144 MG/DL RISK RATIO LDL/HDL (test cod e = 2238) 5.76 RATIO aSmmy LangLIPID [id number] 00:00:00* Test Item Value Reference Range Interpretation Comme nts CHOLESTEROL (test code = 2210) 209 MG/DL TRIGLYCERIDES (test code = 2232) 261 MG/DL HDL CHOLESTEROL (test code = 2220) 25 MG/DL CALC LDL CHOL (test code = 2237) 144 MG/DL RISK RATIO LDL/HDL (test cod e = 2238) 5.76 RATIO Sammy LangLIPID [id number] 00:00:00* Test Item Value Reference Range Interpretation Comme nts CHOLESTEROL (test code = 2210) 209 MG/DL TRIGLYCERIDES (test code = 2232) 261 MG/DL HDL CHOLESTEROL (test code = 2220) 25 MG/DL CALC LDL CHOL (test code = 2237) 144 MG/DL RISK RATIO LDL/HDL (test cod e = 2238) 5.76 RATIO Sammy LangLIPID [id number] 00:00:00* Test Item Value Reference Range Interpretation Comme nts CHOLESTEROL (test code = 2210) 209 MG/DL TRIGLYCERIDES (test code = 2232) 261 MG/DL HDL CHOLESTEROL (test code = 2220) 25 MG/DL CALC LDL CHOL (test code = 2237) 144 MG/DL RISK RATIO LDL/HDL (test cod e = 2238) 5.76 RATIO Sammy LangLIPID [id number] 00:00:00* Test Item Value Reference Range Interpretation Comme nts CHOLESTEROL (test code = 2210) 209 MG/DL TRIGLYCERIDES (test code = 2232) 261 MG/DL HDL CHOLESTEROL (test code = 2220) 25 MG/DL CALC LDL CHOL (test code = 2237) 144 MG/DL RISK RATIO LDL/HDL (test cod e = 2238) 5.76 RATIO Sammy LangLIPID [id number] 00:00:00* Test Item Value Reference Range Interpretation Comme nts CHOLESTEROL (test code = 2210) 209 MG/DL TRIGLYCERIDES (test code = 2232) 261 MG/DL HDL CHOLESTEROL (test code = 2220) 25 MG/DL CALC LDL CHOL (test code = 2237) 144 MG/DL RISK RATIO LDL/HDL (test cod e = 2238) 5.76 RATIO Sammy LangLIPID [id number] 00:00:00* Test Item Value Reference Range Interpretation Comme nts CHOLESTEROL (test code = 2210) 209 MG/DL TRIGLYCERIDES (test code = 2232) 261 MG/DL HDL CHOLESTEROL (test code = 2220) 25 MG/DL CALC LDL CHOL (test code = 2237) 144 MG/DL RISK RATIO LDL/HDL (test cod e = 2238) 5.76 RATIO Sammy LangLIPID [id number] 00:00:00* Test Item Value Reference Range Interpretation Comme nts CHOLESTEROL (test code = 2210) 209 MG/DL TRIGLYCERIDES (test code = 2232) 261 MG/DL HDL CHOLESTEROL (test code = 2220) 25 MG/DL CALC LDL CHOL (test code = 2237) 144 MG/DL RISK RATIO LDL/HDL (test cod e = 2238) 5.76 RATIO Sammy LangLIPID [id number] 00:00:00* Test Item Value Reference Range Interpretation Comme nts CHOLESTEROL (test code = 2210) 209 MG/DL TRIGLYCERIDES (test code = 2232) 261 MG/DL HDL CHOLESTEROL (test code = 2220) 25 MG/DL CALC LDL CHOL (test code = 2237) 144 MG/DL RISK RATIO LDL/HDL (test cod e = 2238) 5.76 RATIO Sammy LangLIPID [id number] 00:00:00* Test Item Value Reference Range Interpretation Comme nts CHOLESTEROL (test code = 2210) 209 MG/DL TRIGLYCERIDES (test code = 2232) 261 MG/DL HDL CHOLESTEROL (test code = 2220) 25 MG/DL CALC LDL CHOL (test code = 2237) 144 MG/DL RISK RATIO LDL/HDL (test cod e = 2238) 5.76 RATIO Sammy [id number] 00:00:00* Test Item Value Reference Range Interpretation Comme nts TSH, THIRD GENERATION (test code = 2821) 2.300 UIU/ML [id number] 00:00:00* Test Item Value Reference Range Interpretation Comme nts TSH, THIRD GENERATION (test code = 2821) 2.300 UIU/ML Sammy LangLIPID [id number] 00:00:00* Test Item Value Reference Range Interpretation Comme nts CHOLESTEROL (test code = 2210) 241 MG/DL TRIGLYCERIDES (test code = 2232) 197 MG/DL HDL CHOLESTEROL (test code = 2220) 27 MG/DL CALC LDL CHOL (test code = 2237) 178 MG/DL RISK RATIO LDL/HDL (test cod e = 2238) 6.59 RATIO Sammy LangCOMPREHENSIVE METABOLIC [id number] 00:00:00* Test Item Value Reference Range Interpretation Comme nts GLUCOSE (test code = 2217) 84 MG/DL BUN (test code = 2208) 11 MG/DL CREATININE (test code = 2214) 1.27 MG/DL eGFR (2020 CKD-EPI) (test co de = 98962) 65 ML/MIN/1.73 CALC BUN/CREAT (test code = 2235) 9 RATIO SODIUM (test code = 2231) 141 MEQ/L POTASSIUM (test code = 2228) 4.3 MEQ/L CHLORIDE (test code = 2215) 101 MEQ/L CARBON DIOXIDE (test code = 2206) 30 MEQ/L CALCIUM (test code = 2209) 10.5 MG/DL PROTEIN, TOTAL (test code = 2229) 7.5 G/DL ALBUMIN (test code = 2201) 5.0 G/DL CALC GLOBULIN (test code = 2240) 2.5 G/DL CALC A/G RATIO (test code = 2234) 2.0 RATIO BILIRUBIN, TOTAL (test code = 2207) 0.7 MG/DL ALKALINE PHOSPHATASE (test code = 2204) 73 U/L AST (test code = 2218) 30 U/L ALT (test code = 2219) 38 U/L Sammy [id number] 00:00:00* Test Item Value Reference Range Interpretation Comme nts TSH, THIRD GENERATION (test code = 2821) 2.300 UIU/ML Sammy LangLIPID [id number] 00:00:00* Test Item Value Reference Range Interpretation Comme nts CHOLESTEROL (test code = 2210) 241 MG/DL TRIGLYCERIDES (test code = 2232) 197 MG/DL HDL CHOLESTEROL (test code = 2220) 27 MG/DL CALC LDL CHOL (test code = 2237) 178 MG/DL RISK RATIO LDL/HDL (test cod e = 2238) 6.59 RATIO Sammy F AustinCOMPREHENSIVE METABOLIC [id number] 00:00:00* Test Item Value Reference Range Interpretation Comme nts GLUCOSE (test code = 2217) 84 MG/DL BUN (test code = 2208) 11 MG/DL CREATININE (test code = 2214) 1.27 MG/DL eGFR (2020 CKD-EPI) (test co de = 64847) 65 ML/MIN/1.73 CALC BUN/CREAT (test code = 2235) 9 RATIO SODIUM (test code = 2231) 141 MEQ/L POTASSIUM (test code = 2228) 4.3 MEQ/L CHLORIDE (test code = 2215) 101 MEQ/L CARBON DIOXIDE (test code = 2206) 30 MEQ/L CALCIUM (test code = 2209) 10.5 MG/DL PROTEIN, TOTAL (test code = 2229) 7.5 G/DL ALBUMIN (test code = 2201) 5.0 G/DL CALC GLOBULIN (test code = 2240) 2.5 G/DL CALC A/G RATIO (test code = 2234) 2.0 RATIO BILIRUBIN, TOTAL (test code = 2207) 0.7 MG/DL ALKALINE PHOSPHATASE (test code = 2204) 73 U/L AST (test code = 2218) 30 U/L ALT (test code = 2219) 38 U/L Sammy [id number] 00:00:00* Test Item Value Reference Range Interpretation Comme nts TSH, THIRD GENERATION (test code = 2821) 2.300 UIU/ML Sammy Miller AustinLIPID [id number] 00:00:00* Test Item Value Reference Range Interpretation Comme nts CHOLESTEROL (test code = 2210) 241 MG/DL TRIGLYCERIDES (test code = 2232) 197 MG/DL HDL CHOLESTEROL (test code = 2220) 27 MG/DL CALC LDL CHOL (test code = 2237) 178 MG/DL RISK RATIO LDL/HDL (test cod e = 2238) 6.59 RATIO Sammy LangCOMPREHENSIVE METABOLIC [id number] 00:00:00* Test Item Value Reference Range Interpretation Comme nts GLUCOSE (test code = 2217) 84 MG/DL BUN (test code = 2208) 11 MG/DL CREATININE (test code = 2214) 1.27 MG/DL eGFR (2020 CKD-EPI) (test co de = 39709) 65 ML/MIN/1.73 CALC BUN/CREAT (test code = 2235) 9 RATIO SODIUM (test code = 2231) 141 MEQ/L POTASSIUM (test code = 2228) 4.3 MEQ/L CHLORIDE (test code = 2215) 101 MEQ/L CARBON DIOXIDE (test code = 2206) 30 MEQ/L CALCIUM (test code = 2209) 10.5 MG/DL PROTEIN, TOTAL (test code = 2229) 7.5 G/DL ALBUMIN (test code = 2201) 5.0 G/DL CALC GLOBULIN (test code = 2240) 2.5 G/DL CALC A/G RATIO (test code = 2234) 2.0 RATIO BILIRUBIN, TOTAL (test code = 2207) 0.7 MG/DL ALKALINE PHOSPHATASE (test code = 2204) 73 U/L AST (test code = 2218) 30 U/L ALT (test code = 2219) 38 U/L Sammy Miller AustinLIPID [id number] 00:00:00* Test Item Value Reference Range Interpretation Comme nts CHOLESTEROL (test code = 2210) 241 MG/DL TRIGLYCERIDES (test code = 2232) 197 MG/DL HDL CHOLESTEROL (test code = 2220) 27 MG/DL CALC LDL CHOL (test code = 2237) 178 MG/DL RISK RATIO LDL/HDL (test cod e = 2238) 6.59 RATIO [id number] 00:00:00* Test Item Value Reference Range Interpretation Comme nts TSH, THIRD GENERATION (test code = 2821) 2.300 UIU/ML Sammy Miller AustinLIPID [id number] 00:00:00* Test Item Value Reference Range Interpretation Comme nts CHOLESTEROL (test code = 2210) 241 MG/DL TRIGLYCERIDES (test code = 2232) 197 MG/DL HDL CHOLESTEROL (test code = 2220) 27 MG/DL CALC LDL CHOL (test code = 2237) 178 MG/DL RISK RATIO LDL/HDL (test cod e = 2238) 6.59 RATIO Sammy LangCOMPREHENSIVE METABOLIC [id number] 00:00:00* Test Item Value Reference Range Interpretation Comme nts GLUCOSE (test code = 2217) 84 MG/DL BUN (test code = 2208) 11 MG/DL CREATININE (test code = 2214) 1.27 MG/DL eGFR (2020 CKD-EPI) (test co de = 95789) 65 ML/MIN/1.73 CALC BUN/CREAT (test code = 2235) 9 RATIO SODIUM (test code = 2231) 141 MEQ/L POTASSIUM (test code = 2228) 4.3 MEQ/L CHLORIDE (test code = 2215) 101 MEQ/L CARBON DIOXIDE (test code = 2206) 30 MEQ/L CALCIUM (test code = 2209) 10.5 MG/DL PROTEIN, TOTAL (test code = 2229) 7.5 G/DL ALBUMIN (test code = 2201) 5.0 G/DL CALC GLOBULIN (test code = 2240) 2.5 G/DL CALC A/G RATIO (test code = 2234) 2.0 RATIO BILIRUBIN, TOTAL (test code = 2207) 0.7 MG/DL ALKALINE PHOSPHATASE (test code = 2204) 73 U/L AST (test code = 2218) 30 U/L ALT (test code = 2219) 38 U/L COMPREHENSIVE METABOLIC [id number] 00:00:00* Test Item Value Reference Range Interpretation Comme nts GLUCOSE (test code = 2217) 84 MG/DL BUN (test code = 2208) 11 MG/DL CREATININE (test code = 2214) 1.27 MG/DL eGFR (2020 CKD-EPI) (test co de = 17308) 65 ML/MIN/1.73 CALC BUN/CREAT (test code = 2235) 9 RATIO SODIUM (test code = 2231) 141 MEQ/L POTASSIUM (test code = 2228) 4.3 MEQ/L CHLORIDE (test code = 2215) 101 MEQ/L CARBON DIOXIDE (test code = 2206) 30 MEQ/L CALCIUM (test code = 2209) 10.5 MG/DL PROTEIN, TOTAL (test code = 2229) 7.5 G/DL ALBUMIN (test code = 2201) 5.0 G/DL CALC GLOBULIN (test code = 2240) 2.5 G/DL CALC A/G RATIO (test code = 2234) 2.0 RATIO BILIRUBIN, TOTAL (test code = 2207) 0.7 MG/DL ALKALINE PHOSPHATASE (test code = 2204) 73 U/L AST (test code = 2218) 30 U/L ALT (test code = 2219) 38 U/L Sammy [id number] 00:00:00* Test Item Value Reference Range Interpretation Comme nts TSH, THIRD GENERATION (test code = 2821) 2.300 UIU/ML [id number] 00:00:00* Test Item Value Reference Range Interpretation Comme nts TSH, THIRD GENERATION (test code = 2821) 2.300 UIU/ML Sammy LangLIPID [id number] 00:00:00* Test Item Value Reference Range Interpretation Comme nts CHOLESTEROL (test code = 2210) 241 MG/DL TRIGLYCERIDES (test code = 2232) 197 MG/DL HDL CHOLESTEROL (test code = 2220) 27 MG/DL CALC LDL CHOL (test code = 2237) 178 MG/DL RISK RATIO LDL/HDL (test cod e = 2238) 6.59 RATIO Sammy LangCOMPREHENSIVE METABOLIC [id number] 00:00:00* Test Item Value Reference Range Interpretation Comme nts GLUCOSE (test code = 2217) 84 MG/DL BUN (test code = 2208) 11 MG/DL CREATININE (test code = 2214) 1.27 MG/DL eGFR (2020 CKD-EPI) (test co de = 90647) 65 ML/MIN/1.73 CALC BUN/CREAT (test code = 2235) 9 RATIO SODIUM (test code = 2231) 141 MEQ/L POTASSIUM (test code = 2228) 4.3 MEQ/L CHLORIDE (test code = 2215) 101 MEQ/L CARBON DIOXIDE (test code = 2206) 30 MEQ/L CALCIUM (test code = 2209) 10.5 MG/DL PROTEIN, TOTAL (test code = 2229) 7.5 G/DL ALBUMIN (test code = 2201) 5.0 G/DL CALC GLOBULIN (test code = 2240) 2.5 G/DL CALC A/G RATIO (test code = 2234) 2.0 RATIO BILIRUBIN, TOTAL (test code = 2207) 0.7 MG/DL ALKALINE PHOSPHATASE (test code = 2204) 73 U/L AST (test code = 2218) 30 U/L ALT (test code = 2219) 38 U/L Sammy [id number] 00:00:00* Test Item Value Reference Range Interpretation Comme nts TSH, THIRD GENERATION (test code = 2821) 2.300 UIU/ML Sammy LangLIPID [id number] 00:00:00* Test Item Value Reference Range Interpretation Comme nts CHOLESTEROL (test code = 2210) 241 MG/DL TRIGLYCERIDES (test code = 2232) 197 MG/DL HDL CHOLESTEROL (test code = 2220) 27 MG/DL CALC LDL CHOL (test code = 2237) 178 MG/DL RISK RATIO LDL/HDL (test cod e = 2238) 6.59 RATIO Sammy LangCOMPREHENSIVE METABOLIC [id number] 00:00:00* Test Item Value Reference Range Interpretation Comme nts GLUCOSE (test code = 2217) 84 MG/DL BUN (test code = 2208) 11 MG/DL CREATININE (test code = 2214) 1.27 MG/DL eGFR (2020 CKD-EPI) (test co de = 22249) 65 ML/MIN/1.73 CALC BUN/CREAT (test code = 2235) 9 RATIO SODIUM (test code = 2231) 141 MEQ/L POTASSIUM (test code = 2228) 4.3 MEQ/L CHLORIDE (test code = 2215) 101 MEQ/L CARBON DIOXIDE (test code = 2206) 30 MEQ/L CALCIUM (test code = 2209) 10.5 MG/DL PROTEIN, TOTAL (test code = 2229) 7.5 G/DL ALBUMIN (test code = 2201) 5.0 G/DL CALC GLOBULIN (test code = 2240) 2.5 G/DL CALC A/G RATIO (test code = 2234) 2.0 RATIO BILIRUBIN, TOTAL (test code = 2207) 0.7 MG/DL ALKALINE PHOSPHATASE (test code = 2204) 73 U/L AST (test code = 2218) 30 U/L ALT (test code = 2219) 38 U/L Sammy [id number] 00:00:00* Test Item Value Reference Range Interpretation Comme nts TSH, THIRD GENERATION (test code = 2821) 2.300 UIU/ML Sammy LangLIPID [id number] 00:00:00* Test Item Value Reference Range Interpretation Comme nts CHOLESTEROL (test code = 2210) 241 MG/DL TRIGLYCERIDES (test code = 2232) 197 MG/DL HDL CHOLESTEROL (test code = 2220) 27 MG/DL CALC LDL CHOL (test code = 2237) 178 MG/DL RISK RATIO LDL/HDL (test cod e = 2238) 6.59 RATIO Sammy LangCOMPREHENSIVE METABOLIC [id number] 00:00:00* Test Item Value Reference Range Interpretation Comme nts GLUCOSE (test code = 2217) 84 MG/DL BUN (test code = 2208) 11 MG/DL CREATININE (test code = 2214) 1.27 MG/DL eGFR (2020 CKD-EPI) (test co de = 79550) 65 ML/MIN/1.73 CALC BUN/CREAT (test code = 2235) 9 RATIO SODIUM (test code = 2231) 141 MEQ/L POTASSIUM (test code = 2228) 4.3 MEQ/L CHLORIDE (test code = 2215) 101 MEQ/L CARBON DIOXIDE (test code = 2206) 30 MEQ/L CALCIUM (test code = 2209) 10.5 MG/DL PROTEIN, TOTAL (test code = 2229) 7.5 G/DL ALBUMIN (test code = 2201) 5.0 G/DL CALC GLOBULIN (test code = 2240) 2.5 G/DL CALC A/G RATIO (test code = 2234) 2.0 RATIO BILIRUBIN, TOTAL (test code = 2207) 0.7 MG/DL ALKALINE PHOSPHATASE (test code = 2204) 73 U/L AST (test code = 2218) 30 U/L ALT (test code = 2219) 38 U/L Sammy [id number] 00:00:00* Test Item Value Reference Range Interpretation Comme nts TSH, THIRD GENERATION (test code = 2821) 2.300 UIU/ML Sammy LangLIPID [id number] 00:00:00* Test Item Value Reference Range Interpretation Comme nts CHOLESTEROL (test code = 2210) 241 MG/DL TRIGLYCERIDES (test code = 2232) 197 MG/DL HDL CHOLESTEROL (test code = 2220) 27 MG/DL CALC LDL CHOL (test code = 2237) 178 MG/DL RISK RATIO LDL/HDL (test cod e = 2238) 6.59 RATIO Sammy LangCOMPREHENSIVE METABOLIC [id number] 00:00:00* Test Item Value Reference Range Interpretation Comme nts GLUCOSE (test code = 2217) 84 MG/DL BUN (test code = 2208) 11 MG/DL CREATININE (test code = 2214) 1.27 MG/DL eGFR (2020 CKD-EPI) (test co de = 57657) 65 ML/MIN/1.73 CALC BUN/CREAT (test code = 2235) 9 RATIO SODIUM (test code = 2231) 141 MEQ/L POTASSIUM (test code = 2228) 4.3 MEQ/L CHLORIDE (test code = 2215) 101 MEQ/L CARBON DIOXIDE (test code = 2206) 30 MEQ/L CALCIUM (test code = 2209) 10.5 MG/DL PROTEIN, TOTAL (test code = 2229) 7.5 G/DL ALBUMIN (test code = 2201) 5.0 G/DL CALC GLOBULIN (test code = 2240) 2.5 G/DL CALC A/G RATIO (test code = 2234) 2.0 RATIO BILIRUBIN, TOTAL (test code = 2207) 0.7 MG/DL ALKALINE PHOSPHATASE (test code = 2204) 73 U/L AST (test code = 2218) 30 U/L ALT (test code = 2219) 38 U/L Sammy [id number] 00:00:00* Test Item Value Reference Range Interpretation Comme nts TSH, THIRD GENERATION (test code = 2821) 2.300 UIU/ML Sammy LangLIPID [id number] 00:00:00* Test Item Value Reference Range Interpretation Comme nts CHOLESTEROL (test code = 2210) 241 MG/DL TRIGLYCERIDES (test code = 2232) 197 MG/DL HDL CHOLESTEROL (test code = 2220) 27 MG/DL CALC LDL CHOL (test code = 2237) 178 MG/DL RISK RATIO LDL/HDL (test cod e = 2238) 6.59 RATIO Sammy LangCOMPREHENSIVE METABOLIC [id number] 00:00:00* Test Item Value Reference Range Interpretation Comme nts GLUCOSE (test code = 2217) 84 MG/DL BUN (test code = 2208) 11 MG/DL CREATININE (test code = 2214) 1.27 MG/DL eGFR (2020 CKD-EPI) (test co de = 56895) 65 ML/MIN/1.73 CALC BUN/CREAT (test code = 2235) 9 RATIO SODIUM (test code = 2231) 141 MEQ/L POTASSIUM (test code = 2228) 4.3 MEQ/L CHLORIDE (test code = 2215) 101 MEQ/L CARBON DIOXIDE (test code = 2206) 30 MEQ/L CALCIUM (test code = 2209) 10.5 MG/DL PROTEIN, TOTAL (test code = 2229) 7.5 G/DL ALBUMIN (test code = 2201) 5.0 G/DL CALC GLOBULIN (test code = 2240) 2.5 G/DL CALC A/G RATIO (test code = 2234) 2.0 RATIO BILIRUBIN, TOTAL (test code = 2207) 0.7 MG/DL ALKALINE PHOSPHATASE (test code = 2204) 73 U/L AST (test code = 2218) 30 U/L ALT (test code = 2219) 38 U/L Sammy [id number] 00:00:00* Test Item Value Reference Range Interpretation Comme nts TSH, THIRD GENERATION (test code = 2821) 2.300 UIU/ML Sammy LangLIPID [id number] 00:00:00* Test Item Value Reference Range Interpretation Comme nts CHOLESTEROL (test code = 2210) 241 MG/DL TRIGLYCERIDES (test code = 2232) 197 MG/DL HDL CHOLESTEROL (test code = 2220) 27 MG/DL CALC LDL CHOL (test code = 2237) 178 MG/DL RISK RATIO LDL/HDL (test cod e = 2238) 6.59 RATIO Sammy LangCOMPREHENSIVE METABOLIC [id number] 00:00:00* Test Item Value Reference Range Interpretation Comme nts GLUCOSE (test code = 2217) 84 MG/DL BUN (test code = 2208) 11 MG/DL CREATININE (test code = 2214) 1.27 MG/DL eGFR (2020 CKD-EPI) (test co de = 69485) 65 ML/MIN/1.73 CALC BUN/CREAT (test code = 2235) 9 RATIO SODIUM (test code = 2231) 141 MEQ/L POTASSIUM (test code = 2228) 4.3 MEQ/L CHLORIDE (test code = 2215) 101 MEQ/L CARBON DIOXIDE (test code = 2206) 30 MEQ/L CALCIUM (test code = 2209) 10.5 MG/DL PROTEIN, TOTAL (test code = 2229) 7.5 G/DL ALBUMIN (test code = 2201) 5.0 G/DL CALC GLOBULIN (test code = 2240) 2.5 G/DL CALC A/G RATIO (test code = 2234) 2.0 RATIO BILIRUBIN, TOTAL (test code = 2207) 0.7 MG/DL ALKALINE PHOSPHATASE (test code = 2204) 73 U/L AST (test code = 2218) 30 U/L ALT (test code = 2219) 38 U/L Sammy Miller AustinLIPID [id number] 00:00:00* Test Item Value Reference Range Interpretation Comme nts CHOLESTEROL (test code = 2210) 241 MG/DL TRIGLYCERIDES (test code = 2232) 197 MG/DL HDL CHOLESTEROL (test code = 2220) 27 MG/DL CALC LDL CHOL (test code = 2237) 178 MG/DL RISK RATIO LDL/HDL (test cod e = 2238) 6.59 RATIO [id number] 00:00:00* Test Item Value Reference Range Interpretation Comme nts TSH, THIRD GENERATION (test code = 2821) 2.300 UIU/ML Sammy Miller AustinLIPID [id number] 00:00:00* Test Item Value Reference Range Interpretation Comme nts CHOLESTEROL (test code = 2210) 241 MG/DL TRIGLYCERIDES (test code = 2232) 197 MG/DL HDL CHOLESTEROL (test code = 2220) 27 MG/DL CALC LDL CHOL (test code = 2237) 178 MG/DL RISK RATIO LDL/HDL (test cod e = 2238) 6.59 RATIO Sammy LangCOMPREHENSIVE METABOLIC [id number] 00:00:00* Test Item Value Reference Range Interpretation Comme nts GLUCOSE (test code = 2217) 84 MG/DL BUN (test code = 2208) 11 MG/DL CREATININE (test code = 2214) 1.27 MG/DL eGFR (2020 CKD-EPI) (test co de = 17287) 65 ML/MIN/1.73 CALC BUN/CREAT (test code = 2235) 9 RATIO SODIUM (test code = 2231) 141 MEQ/L POTASSIUM (test code = 2228) 4.3 MEQ/L CHLORIDE (test code = 2215) 101 MEQ/L CARBON DIOXIDE (test code = 2206) 30 MEQ/L CALCIUM (test code = 2209) 10.5 MG/DL PROTEIN, TOTAL (test code = 2229) 7.5 G/DL ALBUMIN (test code = 2201) 5.0 G/DL CALC GLOBULIN (test code = 2240) 2.5 G/DL CALC A/G RATIO (test code = 2234) 2.0 RATIO BILIRUBIN, TOTAL (test code = 2207) 0.7 MG/DL ALKALINE PHOSPHATASE (test code = 2204) 73 U/L AST (test code = 2218) 30 U/L ALT (test code = 2219) 38 U/L Sammy [id number] 00:00:00* Test Item Value Reference Range Interpretation Comme nts TSH, THIRD GENERATION (test code = 2821) 2.300 UIU/ML Sammy LangLIPID [id number] 00:00:00* Test Item Value Reference Range Interpretation Comme nts CHOLESTEROL (test code = 2210) 241 MG/DL TRIGLYCERIDES (test code = 2232) 197 MG/DL HDL CHOLESTEROL (test code = 2220) 27 MG/DL CALC LDL CHOL (test code = 2237) 178 MG/DL RISK RATIO LDL/HDL (test cod e = 2238) 6.59 RATIO Sammy LangCOMPREHENSIVE METABOLIC [id number] 00:00:00* Test Item Value Reference Range Interpretation Comme nts GLUCOSE (test code = 2217) 84 MG/DL BUN (test code = 2208) 11 MG/DL CREATININE (test code = 2214) 1.27 MG/DL eGFR (2020 CKD-EPI) (test co de = 16359) 65 ML/MIN/1.73 CALC BUN/CREAT (test code = 2235) 9 RATIO SODIUM (test code = 2231) 141 MEQ/L POTASSIUM (test code = 2228) 4.3 MEQ/L CHLORIDE (test code = 2215) 101 MEQ/L CARBON DIOXIDE (test code = 2206) 30 MEQ/L CALCIUM (test code = 2209) 10.5 MG/DL PROTEIN, TOTAL (test code = 2229) 7.5 G/DL ALBUMIN (test code = 2201) 5.0 G/DL CALC GLOBULIN (test code = 2240) 2.5 G/DL CALC A/G RATIO (test code = 2234) 2.0 RATIO BILIRUBIN, TOTAL (test code = 2207) 0.7 MG/DL ALKALINE PHOSPHATASE (test code = 2204) 73 U/L AST (test code = 2218) 30 U/L ALT (test code = 2219) 38 U/L Sammy [id number] 00:00:00* Test Item Value Reference Range Interpretation Comme nts TSH, THIRD GENERATION (test code = 2821) 2.300 UIU/ML Sammy LangLIPID [id number] 00:00:00* Test Item Value Reference Range Interpretation Comme nts CHOLESTEROL (test code = 2210) 241 MG/DL TRIGLYCERIDES (test code = 2232) 197 MG/DL HDL CHOLESTEROL (test code = 2220) 27 MG/DL CALC LDL CHOL (test code = 2237) 178 MG/DL RISK RATIO LDL/HDL (test cod e = 2238) 6.59 RATIO Sammy LangCOMPREHENSIVE METABOLIC [id number] 00:00:00* Test Item Value Reference Range Interpretation Comme nts GLUCOSE (test code = 2217) 84 MG/DL BUN (test code = 2208) 11 MG/DL CREATININE (test code = 2214) 1.27 MG/DL eGFR (2020 CKD-EPI) (test co de = 48570) 65 ML/MIN/1.73 CALC BUN/CREAT (test code = 2235) 9 RATIO SODIUM (test code = 2231) 141 MEQ/L POTASSIUM (test code = 2228) 4.3 MEQ/L CHLORIDE (test code = 2215) 101 MEQ/L CARBON DIOXIDE (test code = 2206) 30 MEQ/L CALCIUM (test code = 2209) 10.5 MG/DL PROTEIN, TOTAL (test code = 2229) 7.5 G/DL ALBUMIN (test code = 2201) 5.0 G/DL CALC GLOBULIN (test code = 2240) 2.5 G/DL CALC A/G RATIO (test code = 2234) 2.0 RATIO BILIRUBIN, TOTAL (test code = 2207) 0.7 MG/DL ALKALINE PHOSPHATASE (test code = 2204) 73 U/L AST (test code = 2218) 30 U/L ALT (test code = 2219) 38 U/L Sammy LangCOMPREHENSIVE METABOLIC [id number] 00:00:00* Test Item Value Reference Range Interpretation Comme nts GLUCOSE (test code = 2217) 84 MG/DL BUN (test code = 2208) 11 MG/DL CREATININE (test code = 2214) 1.27 MG/DL eGFR (2020 CKD-EPI) (test co de = 53427) 65 ML/MIN/1.73 CALC BUN/CREAT (test code = 2235) 9 RATIO SODIUM (test code = 223) 141 MEQ/L POTASSIUM (test code = 2228) 4.3 MEQ/L CHLORIDE (test code = 2215) 101 MEQ/L CARBON DIOXIDE (test code = 2206) 30 MEQ/L CALCIUM (test code = 2209) 10.5 MG/DL PROTEIN, TOTAL (test code = 2229) 7.5 G/DL ALBUMIN (test code = 2201) 5.0 G/DL CALC GLOBULIN (test code = 2240) 2.5 G/DL CALC A/G RATIO (test code = 2234) 2.0 RATIO BILIRUBIN, TOTAL (test code = 7) 0.7 MG/DL ALKALINE PHOSPHATASE (test code = 2204) 73 U/L AST (test code = 2218) 30 U/L ALT (test code = 2219) 38 U/L GLYCOSYLATED HEMOGLOBIN (A1C)2022-05-08 14:50:51* Test Item Value Reference Range Interpretation Comme nts HGB A1C (test code = 4548-4) 5.1 % 4.0-5.7 ASHLEIGH (test code = ASHLEIGH) Reference RangesNormal: <5.7%Prediabetes: 5.7 - 6.4%Diabetes: > 6.5% Lab Interpretation (test code = 03717-3) [facility]TOTAL CHOLESTEROL, TRIGLYCERIDES, HDL)2022-05-08 14:46:34* Test Item Value Reference Range Interpretation Comme nts CHOL (test code = 4804826095) 199 mg/dL 120-200 HDL (test code = 9418851821) 20 mg/dL >40 L HDLC RATIO (test code = 8464144842) See_Comment H [Automated [employer]] The system which generated this result transmitted reference range: <=5.0. The reference range was not used to interpret this result as normal/abnormal. TRIG (test code = 9124826981) 181 mg/dL 30-170 H LDL CHOL (test code = 83146-7) 143 mg/dL See_Comment [Automated [employer]] The system which generated this result transmitted reference range: <=160. The reference range was not used to interpret this result as normal/abnormal. VLDL (test code = 4350635509) 36 mg/dL 5-60 Lab Interpretation (test code = 98165-3) Abnormal [facility] [id number] 09:26:29* Test Item Value Reference Range Interpretation Comments TROPONIN I (test code = 3808852376) 0.002 ng/mL See_Comment [Automated message] The system which generated this result transmitted reference range: <=0.034. The reference range was not used to interpret this result as normal/abnormal. ASHLEIGH (test code = ASHLEIGH) Reference (Normal) Range (defined by the 99th percentile reference limit): <= 0.034 ng/mL Note: Cardiac troponin begins to rise 3-4 hours after the onset of ischemia. Repeat in 4-6 hours if the sample was drawn within 3-4 hours of the onset of the symptom and found normal. Diagnosis of myocardial injury is made with acute changes in cTn concentrations with at least one serial sample above the 99th percentile upper reference limit (URL), taken together with the patient's clinical presentation. Biotin has been reported to cause a negative bias, interpret results relative to patient's use of biotin. Lab Interpretation (test code = 52418-8) Normal [facility] [id number] 02:01:20* Test Item Value Reference Range Interpretation Comments TROPONIN I (test code = 9221794595) 0.001 ng/mL See_Comment [Automated message] The system which generated this result transmitted reference range: <=0.034. The reference range was not used to interpret this result as normal/abnormal. ASHLEIGH (test code = ASHLEIGH) Reference (Normal) Range (defined by the 99th percentile reference limit): <= 0.034 ng/mL Note: Cardiac troponin begins to rise 3-4 hours after the onset of ischemia. Repeat in 4-6 hours if the sample was drawn within 3-4 hours of the onset of the symptom and found normal. Diagnosis of myocardial injury is made with acute changes in cTn concentrations with at least one serial sample above the 99th percentile upper reference limit (URL), taken together with the patient's clinical presentation. Biotin has been reported to cause a negative bias, interpret results relative to patient's use of biotin. Lab Interpretation (test code = 72682-8) [facility] 21:43:20* Test Item Value Reference Range Interpretation Comme nts Ao root annulus (test code = 8787681007) 3.1 cm Ao root diam (test code = 3495542094) 3.10 cm Aortic root (test code = 6329849866) 3.1 cm LVOT diameter (test code = 1850842550) 2.08 cm LVIDD (test code = 2625041304) 3.40 cm IVS (test code = 7839812946) 1.38 cm Interventricular Septum Diastolic Thickness by 2D (test code = 3330456) 1.38 cm LVPWD (test code = 4984837330) 1.38 cm PW (test code = 0862190641) 1.38 cm 0.6-1.1 EF(Teich) (test code = 1085856806) 54.60 % LVIDS (test code = 7187074840) 2.46 cm FS (test code = 5209295077) 28 % EF - 2D (test code = 47299938) 54.60 % LA size (test code = 6097663525) 2.7 cm MV valve area p 1/2 method (test code = 0892822195) 3.40 cm2 MV dec slope (test code = 7070124494) 396.90 cm/s2 MV P1/2t max richard (test code = 3635413866) 87.20 cm/s MV stenosis pressure 1/2 time (test code = 1804945778) 64.6 ms MV Peak E Richard (test code = 2164670038) 87.6 cm/s MV Peak A Rihcard (test code = 4789363283) 62.3 cm/s E/A ratio (test code = 8378622962) ratio MV Prop V (test code = 5050412079) 37.40 cm/s MV E/e' septal (test code = 2297226139) 12.8 cm/s LAV(MOD-sp4) (test code = 0168300482) 34.20 mL TR Peak Richard (test code = 3034890835) 252.4 cm/s Triscuspid Valve Regurgitation Peak Gradient (test code = 9686761369) mmHg Tapse (test code = 0845338267) 1.92 cm LVOT stroke volume (test code = 4087302618) 71.50 cm3 LVOT peak richard (test code = 9097488270) 111.4 cm/s LVOT mn grad (test code = 8897612213) mmHg AV LVOT peak gradient (test code = 7615992311) mmHg LVOT peak VTI (test code = 1289558118) 21.0 cm LV V1 mean (test code = 4827553207) 73.90 cm/s Aortic valve mean velocity (test code = 7269391681) 110.4 cm/s Ao peak richard (test code = 6669721152) 148.9 cm/s Ao VTI (test code = 1695133086) 29.5 cm AV area by cont VTI (test code = 5672816234) 2.4 cm2 AV area peak richard (test code = 4568192054) 2.5 cm2 Ao max PG (test code = 8424773334) 8.90 mm[Hg] AV peak gradient (test code = 8904411185) mmHg AV valve area (test code = 9103303085) 2.42 cm2 AV mean gradient (test code = 8151786665) mmHg MR max PG (test code = 4302748897) 44.50 mm[Hg] MR max richard (test code = 8919235708) 333.70 cm/s Mr max richard (test code = 2077063454) 333.7 m/s Radiology Study observation (narrative) (test code = 89250-5) ASHLEIGH (test code = ASHLEIGH) ?Left?Ventricle: Left ventricle size is normal. Mildly increased wall thickness. Normal wall motion. Normal diastolic function. Normal systolic function with a visually estimated EF of 60 - 65%. ?Tricuspid?Valve: Insufficient regurgant jet to estimate RVSP. ?Pericardium: The pericardium is normal. VitalsHeight Weight BSA (Calculated - sq m) BP Pulse 6' 2" (1.88 m) 195 lb (88.5 kg) 2.15 sq meters 135/100 69 [facility]TR[facility] [id number] 18:20:00* Test Item Value Reference Range Interpretation Comments TROPONIN I (test code = 4906751420) 0.001 ng/mL See_Comment [Automated message] The system which generated this result transmitted reference range: <=0.034. The reference range was not used to interpret this result as normal/abnormal. ASHLEIGH (test code = ASHLEIGH) Reference (Normal) Range (defined by the 99th percentile reference limit): <= 0.034 ng/mL Note: Cardiac troponin begins to rise 3-4 hours after the onset of ischemia. Repeat in 4-6 hours if the sample was drawn within 3-4 hours of the onset of the symptom and found normal. Diagnosis of myocardial injury is made with acute changes in cTn concentrations with at least one serial sample above the 99th percentile upper reference limit (URL), taken together with the patient's clinical presentation. Biotin has been reported to cause a negative bias, interpret results relative to patient's use of biotin. Lab Interpretation (test code = 49280-7) Normal [facility] Irving[facility]-TERMIN[facility] [id number] 18:17:00* Test Item Value Reference Range Interpretation Comme nts NT-proBNP (test code = 6519285408) 16 pg/mL See_Comment [Automated message] The system which generated this result transmitted reference range: <=125. The reference range was not used to interpret this result as normal/abnormal. ASHLEIGH (test code = ASHLEIGH) Biotin has been reported to cause a negative bias, interpret results relative to patient's use of biotin. Lab Interpretation (test code = 83352-0) Normal [facility] IrvingCOMP[facility] METABOLIC PANEL (79117)2022-05-07 18:09:20* Test Item Value Reference Range Interpretation Comme nts NA (test code = 2735208146) 140 mmol/L 135-145 K (test code = 3281894280) 4.1 mmol/L 3.5-5.0 CL (test code = 0654103541) 100 mmol/L 98-108 CO2 TOTAL (test code = 8687749801) 28 mmol/L 23-31 AGAP (test code = 5605925020) 2-16 BUN (test code = 7353647127) 14 mg/dL 7-23 GLUCOSE (test code = 5797842978) 138 mg/dL 70-110 H CREATININE (test code = 1003659100) 1.04 mg/dL 0.60-1.25 TOTAL BILI (test code = 2456212027) 1.1 mg/dL 0.1-1.1 CALCIUM (test code = 0660441056) 9.8 mg/dL 8.6-10.6 T PROTEIN (test code = 4653958747) 7.4 g/dL 6.3-8.2 ALBUMIN (test code = 7888662670) 4.7 g/dL 3.5-5.0 ALK PHOS (test code = 8605033335) 64 U/L 34-122 ALTv (test code = 1742-6) 40 U/L 5-50 AST(SGOT) (test code = 4604622044) 33 U/L 13-40 eGFR (test code = 7647769154) mL/min/1.73m2 ASHLEIGH (test code = ASHLEIGH) Association of Glomerular Filtration Rate (GFR) and Staging of Kidney Disease* + --+ --+ ------+| GFR (mL/min/1.73 m2) ?| With Kidney Damage ?| ?Without Kidney Damage+ --------+ --------+ +| ?>90 ?| ?Stage one ?| ? Normal ?+ ---+ ---+ -------+| ?60-89 ?| ?Stage two ?| ? Decreased GFR ? + --+ --+ ------+| ?30-59 ?| ?Stage three ?| ? Stage three ? + --+ --+ ------+| ?15-29 ?| ?Stage four ? | ? Stage four ?+ ---+ ---+ -------+| ?<15 (or dialysis) ? ?| ?Stage five ? | ? Stage five ?+ ---+ ---+ -------+ *Each stage assumes the associated GFR level has been in effect for at least three months. ?Stages 1 to 5, with or without kidney disease, indicate chronic kidney disease. Notes: Determination of stages one and two (with eGFR >59mL/min/1.73 m2) requires estimation of kidney damage for at least three months as defined by structural or functional abnormalities of the kidney, manifested by either:Pathological abnormalities or Markers of kidney damage (including abnormalities in the composition of the blood or urine or abnormalities in imaging tests). Lab Interpretation (test code = 61780-5) [facility]normal [facility] 18:09:20* Test Item Value Reference Range Interpretation Comme nts MAGNESIUM (test code = 0640768438) 1.7 mg/dL 1.7-2.4 Lab Interpretation (test cod e = 37205-1) Normal [facility] IrvingLIPASE, [id number] 18:09:00* Test Item Value Reference Range Interpretation Comme nts LIPASE (test code = 8310740815) 140 U/L 0-220 Lab Interpretation (test cod e = 94700-7) Normal [facility] IrvingaPTT2022-06-07 18:02:57* Test Item Value Reference Range Interpretation Comme nts APTT Patient (test code = 3173-2) See_Comment [Automated message] The system which generated this result transmitted reference range: 23 - 38 Seconds. The reference range was not used to interpret this result as normal/abnormal. ASHLEIGH (test code = ASHLEIGH) The [facility] patient population mean normal value for aPTT is 30 seconds. Lab Interpretation (test code = 90051-1) Normal [facility] IrvingPROTHROMBIN TIME / [id number] 18:00:59* Test Item Value Reference Range Interpretation Comme nts PROTIME PATIENT (test code = 5964-2) See_Comment [Automated [employer]] The system which generated this result transmitted reference range: 12.0 - 14.7 Seconds. The reference range was not used to interpret this result as normal/abnormal. INR (test code = 6301-6) Normal INR <1.1; Warfarin Therapeutic range 2.0 to 3.0 or 2.5 to 3.5, depending upon the indications. Lab Interpretation (test code = 25701-3) Normal [facility] IrvingCBC WITH [id number] 17:52:58* Test Item Value Reference Range Interpretation Comme nts WBC (test code = 6690-2) See_Comment [Automated [employer]] The system which generated this result transmitted reference range: 4.20 - 10.70 10*3/?L. The reference range was not used to interpret this result as normal/abnormal. RBC (test code = 789-8) See_Comment [Automated [employer] ge] The system which generated this result transmitted reference range: 4.26 - 5.52 10*6/?L. The reference range was not used to interpret this result as normal/abnormal. HGB (test code = 718-7) 16.0 g/dL 12.2-16.4 HCT (test code = 4544-3) 45.2 % 38.4-49.3 MCV (test code = 787-2) 88.1 fL 81.7-95.6 MCH (test code = 785-6) 31.2 pg 26.1-32.7 MCHC (test code = 786-4) 35.4 g/dL 31.2-35.0 H RDW-SD (test code = 83289-7) 39.0 fL 38.5-51.6 RDW-CV (test code = 788-0) 12.0 % 12.1-15.4 L PLT (test code = 777-3) See_Comment [Automated [employer]] The system which generated this result transmitted reference range: 150 - 328 10*3/?L. The reference range was not used to interpret this result as normal/abnormal. MPV (test code = 90014-7) 10.2 fL 9.8-13.0 NRBC/100 WBC (test code = 6601646762) See_Comment [Automated FRUCT ssage] The system which generated this result transmitted reference range: 0.0 - 10.0 /100 WBCs. The reference range was not used to interpret this result as normal/abnormal. NRBC x10^3 (test code = 1234241344) <0.01 See_Comment [Automated [employer]] The system which generated this result transmitted reference range: 10*3/?L. The reference range was not used to interpret this result as normal/abnormal. GRAN MAT (NEUT) % (test code = 770-8) 64.0 % IMM GRAN % (test code = 3905964428) 0.50 % LYMPH % (test code = 736-9) 22.8 % MONO % (test code = 5905-5) 7.0 % EOS % (test code = 713-8) 5.1 % BASO % (test code = 706-2) 0.6 % GRAN MAT x10^3(ANC) (test code = 9457694878) 4.10 10*3/uL 1.99-6.95 IMM GRAN x10^3 (test code = 1217382430) 0.03 10*3/uL 0.00-0.06 LYMPH x10^3 (test code = 731-0) 1.46 10*3/uL 1.09-3.23 MONO x10^3 (test code = 742-7) 0.45 10*3/uL 0.36-1.02 EOS x10^3 (test code = 711-2) 0.33 10*3/uL 0.06-0.53 BASO x10^3 (test code = 704-7) 0.04 10*3/uL 0.01-0.09 Lab Interpretation (test code = 93504-5) Abnormal [facility] IrvingPSA, [id number] 00:00:00* Test Item Value Reference Range Interpretation Comme nts PSA, TOTAL (test code = 2606) 0.60 NG/ML PSA, [id number] 00:00:00* Test Item Value Reference Range Interpretation Comme nts PSA, TOTAL (test code = 2606) 0.60 NG/ML Sammy F RickeyCOMPREHENSIVE METABOLIC [id number] 00:00:00* Test Item Value Reference Range Interpretation Comme nts GLUCOSE (test code = 2217) 86 MG/DL BUN (test code = 2208) 11 MG/DL CREATININE (test code = 2214) 1.12 MG/DL eGFR AMER. (test cod e = 63561) 85 ML/MIN/1.73 eGFR NON- AMER. (test code = 64185) 74 ML/MIN/1.73 CALC BUN/CREAT (test code = 2235) 10 RATIO SODIUM (test code = 2231) 143 MEQ/L POTASSIUM (test code = 2228) 4.2 MEQ/L CHLORIDE (test code = 2215) 101 MEQ/L CARBON DIOXIDE (test code = 2206) 26 MEQ/L CALCIUM (test code = 2209) 9.7 MG/DL PROTEIN, TOTAL (test code = 2229) 7.0 G/DL ALBUMIN (test code = 2201) 4.6 G/DL CALC GLOBULIN (test code = 2240) 2.4 G/DL CALC A/G RATIO (test code = 2234) 1.9 RATIO BILIRUBIN, TOTAL (test code = 2207) 0.5 MG/DL ALKALINE PHOSPHATASE (test code = 2204) 70 U/L AST (test code = 2218) 24 U/L ALT (test code = 2219) 33 U/L Sammy aLngPSA, [id number] 00:00:00* Test Item Value Reference Range Interpretation Comme nts PSA, TOTAL (test code = 2606) 0.60 NG/ML PSA, [id number] 00:00:00* Test Item Value Reference Range Interpretation Comme nts PSA, TOTAL (test code = 2606) 0.60 NG/ML Sammy LangCOMPREHENSIVE METABOLIC [id number] 00:00:00* Test Item Value Reference Range Interpretation Comme nts GLUCOSE (test code = 2217) 86 MG/DL BUN (test code = 2208) 11 MG/DL CREATININE (test code = 2214) 1.12 MG/DL eGFR AMER. (test cod e = 89577) 85 ML/MIN/1.73 eGFR NON- AMER. (test code = 26705) 74 ML/MIN/1.73 CALC BUN/CREAT (test code = 2235) 10 RATIO SODIUM (test code = 2231) 143 MEQ/L POTASSIUM (test code = 2228) 4.2 MEQ/L CHLORIDE (test code = 2215) 101 MEQ/L CARBON DIOXIDE (test code = 2206) 26 MEQ/L CALCIUM (test code = 2209) 9.7 MG/DL PROTEIN, TOTAL (test code = 2229) 7.0 G/DL ALBUMIN (test code = 2201) 4.6 G/DL CALC GLOBULIN (test code = 2240) 2.4 G/DL CALC A/G RATIO (test code = 2234) 1.9 RATIO BILIRUBIN, TOTAL (test code = 2207) 0.5 MG/DL ALKALINE PHOSPHATASE (test code = 2204) 70 U/L AST (test code = 2218) 24 U/L ALT (test code = 2219) 33 U/L Sammy LangPSA, [id number] 00:00:00* Test Item Value Reference Range Interpretation Comme nts PSA, TOTAL (test code = 2606) 0.60 NG/ML Sammy LangCOMPREHENSIVE METABOLIC [id number] 00:00:00* Test Item Value Reference Range Interpretation Comme nts GLUCOSE (test code = 2217) 86 MG/DL BUN (test code = 2208) 11 MG/DL CREATININE (test code = 2214) 1.12 MG/DL eGFR AMER. (test cod e = 00131) 85 ML/MIN/1.73 eGFR NON- AMER. (test code = 21326) 74 ML/MIN/1.73 CALC BUN/CREAT (test code = 2235) 10 RATIO SODIUM (test code = 2231) 143 MEQ/L POTASSIUM (test code = 2228) 4.2 MEQ/L CHLORIDE (test code = 2215) 101 MEQ/L CARBON DIOXIDE (test code = 2206) 26 MEQ/L CALCIUM (test code = 2209) 9.7 MG/DL PROTEIN, TOTAL (test code = 2229) 7.0 G/DL ALBUMIN (test code = 2201) 4.6 G/DL CALC GLOBULIN (test code = 2240) 2.4 G/DL CALC A/G RATIO (test code = 2234) 1.9 RATIO BILIRUBIN, TOTAL (test code = 2207) 0.5 MG/DL ALKALINE PHOSPHATASE (test code = 2204) 70 U/L AST (test code = 2218) 24 U/L ALT (test code = 2219) 33 U/L COMPREHENSIVE METABOLIC [id number] 00:00:00* Test Item Value Reference Range Interpretation Comme nts GLUCOSE (test code = 2217) 86 MG/DL BUN (test code = 2208) 11 MG/DL CREATININE (test code = 2214) 1.12 MG/DL eGFR AMER. (test cod e = 24347) 85 ML/MIN/1.73 eGFR NON- AMER. (test code = 85273) 74 ML/MIN/1.73 CALC BUN/CREAT (test code = 2235) 10 RATIO SODIUM (test code = 2231) 143 MEQ/L POTASSIUM (test code = 2228) 4.2 MEQ/L CHLORIDE (test code = 2215) 101 MEQ/L CARBON DIOXIDE (test code = 2206) 26 MEQ/L CALCIUM (test code = 2209) 9.7 MG/DL PROTEIN, TOTAL (test code = 2229) 7.0 G/DL ALBUMIN (test code = 2201) 4.6 G/DL CALC GLOBULIN (test code = 2240) 2.4 G/DL CALC A/G RATIO (test code = 2234) 1.9 RATIO BILIRUBIN, TOTAL (test code = 2207) 0.5 MG/DL ALKALINE PHOSPHATASE (test code = 2204) 70 U/L AST (test code = 2218) 24 U/L ALT (test code = 2219) 33 U/L Sammy Soriano, [id number] 00:00:00* Test Item Value Reference Range Interpretation Comme nts PSA, TOTAL (test code = 2606) 0.60 NG/ML Sammy LangCOMPREHENSIVE METABOLIC [id number] 00:00:00* Test Item Value Reference Range Interpretation Comme nts GLUCOSE (test code = 2217) 86 MG/DL BUN (test code = 2208) 11 MG/DL CREATININE (test code = 2214) 1.12 MG/DL eGFR AMER. (test cod e = 84950) 85 ML/MIN/1.73 eGFR NON- AMER. (test code = 57341) 74 ML/MIN/1.73 CALC BUN/CREAT (test code = 2235) 10 RATIO SODIUM (test code = 2231) 143 MEQ/L POTASSIUM (test code = 2228) 4.2 MEQ/L CHLORIDE (test code = 2215) 101 MEQ/L CARBON DIOXIDE (test code = 2206) 26 MEQ/L CALCIUM (test code = 2209) 9.7 MG/DL PROTEIN, TOTAL (test code = 2229) 7.0 G/DL ALBUMIN (test code = 2201) 4.6 G/DL CALC GLOBULIN (test code = 2240) 2.4 G/DL CALC A/G RATIO (test code = 2234) 1.9 RATIO BILIRUBIN, TOTAL (test code = 2207) 0.5 MG/DL ALKALINE PHOSPHATASE (test code = 2204) 70 U/L AST (test code = 2218) 24 U/L ALT (test code = 2219) 33 U/L Sammy MeekA, [id number] 00:00:00* Test Item Value Reference Range Interpretation Comme nts PSA, TOTAL (test code = 2606) 0.60 NG/ML Sammy LangCOMPREHENSIVE METABOLIC [id number] 00:00:00* Test Item Value Reference Range Interpretation Comme nts GLUCOSE (test code = 2217) 86 MG/DL BUN (test code = 2208) 11 MG/DL CREATININE (test code = 2214) 1.12 MG/DL eGFR AMER. (test cod e = 53893) 85 ML/MIN/1.73 eGFR NON- AMER. (test code = 96715) 74 ML/MIN/1.73 CALC BUN/CREAT (test code = 2235) 10 RATIO SODIUM (test code = 2231) 143 MEQ/L POTASSIUM (test code = 2228) 4.2 MEQ/L CHLORIDE (test code = 2215) 101 MEQ/L CARBON DIOXIDE (test code = 2206) 26 MEQ/L CALCIUM (test code = 2209) 9.7 MG/DL PROTEIN, TOTAL (test code = 2229) 7.0 G/DL ALBUMIN (test code = 2201) 4.6 G/DL CALC GLOBULIN (test code = 2240) 2.4 G/DL CALC A/G RATIO (test code = 2234) 1.9 RATIO BILIRUBIN, TOTAL (test code = 2207) 0.5 MG/DL ALKALINE PHOSPHATASE (test code = 2204) 70 U/L AST (test code = 2218) 24 U/L ALT (test code = 2219) 33 U/L Sammy LangPSA, [id number] 00:00:00* Test Item Value Reference Range Interpretation Comme nts PSA, TOTAL (test code = 2606) 0.60 NG/ML Sammy LangCOMPREHENSIVE METABOLIC [id number] 00:00:00* Test Item Value Reference Range Interpretation Comme nts GLUCOSE (test code = 2217) 86 MG/DL BUN (test code = 2208) 11 MG/DL CREATININE (test code = 2214) 1.12 MG/DL eGFR AMER. (test cod e = 82216) 85 ML/MIN/1.73 eGFR NON- AMER. (test code = 99194) 74 ML/MIN/1.73 CALC BUN/CREAT (test code = 2235) 10 RATIO SODIUM (test code = 2231) 143 MEQ/L POTASSIUM (test code = 2228) 4.2 MEQ/L CHLORIDE (test code = 2215) 101 MEQ/L CARBON DIOXIDE (test code = 2206) 26 MEQ/L CALCIUM (test code = 2209) 9.7 MG/DL PROTEIN, TOTAL (test code = 2229) 7.0 G/DL ALBUMIN (test code = 2201) 4.6 G/DL CALC GLOBULIN (test code = 2240) 2.4 G/DL CALC A/G RATIO (test code = 2234) 1.9 RATIO BILIRUBIN, TOTAL (test code = 2207) 0.5 MG/DL ALKALINE PHOSPHATASE (test code = 2204) 70 U/L AST (test code = 2218) 24 U/L ALT (test code = 2219) 33 U/L Sammy LangPSA, [id number] 00:00:00* Test Item Value Reference Range Interpretation Comme nts PSA, TOTAL (test code = 2606) 0.60 NG/ML Sammy LangCOMPREHENSIVE METABOLIC [id number] 00:00:00* Test Item Value Reference Range Interpretation Comme nts GLUCOSE (test code = 2217) 86 MG/DL BUN (test code = 2208) 11 MG/DL CREATININE (test code = 2214) 1.12 MG/DL eGFR AMER. (test cod e = 63625) 85 ML/MIN/1.73 eGFR NON- AMER. (test code = 66032) 74 ML/MIN/1.73 CALC BUN/CREAT (test code = 2235) 10 RATIO SODIUM (test code = 2231) 143 MEQ/L POTASSIUM (test code = 2228) 4.2 MEQ/L CHLORIDE (test code = 2215) 101 MEQ/L CARBON DIOXIDE (test code = 2206) 26 MEQ/L CALCIUM (test code = 2209) 9.7 MG/DL PROTEIN, TOTAL (test code = 2229) 7.0 G/DL ALBUMIN (test code = 2201) 4.6 G/DL CALC GLOBULIN (test code = 2240) 2.4 G/DL CALC A/G RATIO (test code = 2234) 1.9 RATIO BILIRUBIN, TOTAL (test code = 2207) 0.5 MG/DL ALKALINE PHOSPHATASE (test code = 2204) 70 U/L AST (test code = 2218) 24 U/L ALT (test code = 2219) 33 U/L Sammy Soriano, [id number] 00:00:00* Test Item Value Reference Range Interpretation Comme nts PSA, TOTAL (test code = 2606) 0.60 NG/ML Sammy LangCOMPREHENSIVE METABOLIC [id number] 00:00:00* Test Item Value Reference Range Interpretation Comme nts GLUCOSE (test code = 2217) 86 MG/DL BUN (test code = 2208) 11 MG/DL CREATININE (test code = 2214) 1.12 MG/DL eGFR AMER. (test cod e = 97346) 85 ML/MIN/1.73 eGFR NON- AMER. (test code = 90415) 74 ML/MIN/1.73 CALC BUN/CREAT (test code = 2235) 10 RATIO SODIUM (test code = 2231) 143 MEQ/L POTASSIUM (test code = 2228) 4.2 MEQ/L CHLORIDE (test code = 2215) 101 MEQ/L CARBON DIOXIDE (test code = 2206) 26 MEQ/L CALCIUM (test code = 2209) 9.7 MG/DL PROTEIN, TOTAL (test code = 2229) 7.0 G/DL ALBUMIN (test code = 2201) 4.6 G/DL CALC GLOBULIN (test code = 2240) 2.4 G/DL CALC A/G RATIO (test code = 2234) 1.9 RATIO BILIRUBIN, TOTAL (test code = 2207) 0.5 MG/DL ALKALINE PHOSPHATASE (test code = 2204) 70 U/L AST (test code = 2218) 24 U/L ALT (test code = 2219) 33 U/L Sammy Soriano, [id number] 00:00:00* Test Item Value Reference Range Interpretation Comme nts PSA, TOTAL (test code = 2606) 0.60 NG/ML Sammy LangCOMPREHENSIVE METABOLIC [id number] 00:00:00* Test Item Value Reference Range Interpretation Comme nts GLUCOSE (test code = 2217) 86 MG/DL BUN (test code = 2208) 11 MG/DL CREATININE (test code = 2214) 1.12 MG/DL eGFR AMER. (test cod e = 21054) 85 ML/MIN/1.73 eGFR NON- AMER. (test code = 22760) 74 ML/MIN/1.73 CALC BUN/CREAT (test code = 2235) 10 RATIO SODIUM (test code = 2231) 143 MEQ/L POTASSIUM (test code = 2228) 4.2 MEQ/L CHLORIDE (test code = 2215) 101 MEQ/L CARBON DIOXIDE (test code = 2206) 26 MEQ/L CALCIUM (test code = 2209) 9.7 MG/DL PROTEIN, TOTAL (test code = 2229) 7.0 G/DL ALBUMIN (test code = 2201) 4.6 G/DL CALC GLOBULIN (test code = 2240) 2.4 G/DL CALC A/G RATIO (test code = 2234) 1.9 RATIO BILIRUBIN, TOTAL (test code = 2207) 0.5 MG/DL ALKALINE PHOSPHATASE (test code = 2204) 70 U/L AST (test code = 2218) 24 U/L ALT (test code = 2219) 33 U/L Sammy Angela LangPSA, [id number] 00:00:00* Test Item Value Reference Range Interpretation Comme nts PSA, TOTAL (test code = 2606) 0.60 NG/ML Sammy LangCOMPREHENSIVE METABOLIC [id number] 00:00:00* Test Item Value Reference Range Interpretation Comme nts GLUCOSE (test code = 2217) 86 MG/DL BUN (test code = 2208) 11 MG/DL CREATININE (test code = 2214) 1.12 MG/DL eGFR AMER. (test cod e = 61219) 85 ML/MIN/1.73 eGFR NON- AMER. (test code = 24364) 74 ML/MIN/1.73 CALC BUN/CREAT (test code = 2235) 10 RATIO SODIUM (test code = 2231) 143 MEQ/L POTASSIUM (test code = 2228) 4.2 MEQ/L CHLORIDE (test code = 2215) 101 MEQ/L CARBON DIOXIDE (test code = 2206) 26 MEQ/L CALCIUM (test code = 2209) 9.7 MG/DL PROTEIN, TOTAL (test code = 2229) 7.0 G/DL ALBUMIN (test code = 2201) 4.6 G/DL CALC GLOBULIN (test code = 2240) 2.4 G/DL CALC A/G RATIO (test code = 2234) 1.9 RATIO BILIRUBIN, TOTAL (test code = 2207) 0.5 MG/DL ALKALINE PHOSPHATASE (test code = 2204) 70 U/L AST (test code = 2218) 24 U/L ALT (test code = 2219) 33 U/L Sammy LangPSA, [id number] 00:00:00* Test Item Value Reference Range Interpretation Comme nts PSA, TOTAL (test code = 2606) 0.60 NG/ML Sammy LangCOMPREHENSIVE METABOLIC [id number] 00:00:00* Test Item Value Reference Range Interpretation Comme nts GLUCOSE (test code = 2217) 86 MG/DL BUN (test code = 2208) 11 MG/DL CREATININE (test code = 2214) 1.12 MG/DL eGFR AMER. (test cod e = 12189) 85 ML/MIN/1.73 eGFR NON- AMER. (test code = 00655) 74 ML/MIN/1.73 CALC BUN/CREAT (test code = 2235) 10 RATIO SODIUM (test code = 2231) 143 MEQ/L POTASSIUM (test code = 2228) 4.2 MEQ/L CHLORIDE (test code = 2215) 101 MEQ/L CARBON DIOXIDE (test code = 2206) 26 MEQ/L CALCIUM (test code = 2209) 9.7 MG/DL PROTEIN, TOTAL (test code = 2229) 7.0 G/DL ALBUMIN (test code = 2201) 4.6 G/DL CALC GLOBULIN (test code = 2240) 2.4 G/DL CALC A/G RATIO (test code = 2234) 1.9 RATIO BILIRUBIN, TOTAL (test code = 2207) 0.5 MG/DL ALKALINE PHOSPHATASE (test code = 2204) 70 U/L AST (test code = 2218) 24 U/L ALT (test code = 2219) 33 U/L Sammy LangPSA, [id number] 00:00:00* Test Item Value Reference Range Interpretation Comme nts PSA, TOTAL (test code = 2606) 0.60 NG/ML Sammy Miller AustinCOMPREHENSIVE METABOLIC [id number] 00:00:00* Test Item Value Reference Range Interpretation Comme nts GLUCOSE (test code = 2217) 86 MG/DL BUN (test code = 2208) 11 MG/DL CREATININE (test code = 2214) 1.12 MG/DL eGFR AMER. (test cod e = 35740) 85 ML/MIN/1.73 eGFR NON- AMER. (test code = 05034) 74 ML/MIN/1.73 CALC BUN/CREAT (test code = 2235) 10 RATIO SODIUM (test code = 2231) 143 MEQ/L POTASSIUM (test code = 2228) 4.2 MEQ/L CHLORIDE (test code = 2215) 101 MEQ/L CARBON DIOXIDE (test code = 2206) 26 MEQ/L CALCIUM (test code = 2209) 9.7 MG/DL PROTEIN, TOTAL (test code = 2229) 7.0 G/DL ALBUMIN (test code = 2201) 4.6 G/DL CALC GLOBULIN (test code = 2240) 2.4 G/DL CALC A/G RATIO (test code = 2234) 1.9 RATIO BILIRUBIN, TOTAL (test code = 2207) 0.5 MG/DL ALKALINE PHOSPHATASE (test code = 2204) 70 U/L AST (test code = 2218) 24 U/L ALT (test code = 2219) 33 U/L Sammy F RickeyCOMPREHENSIVE METABOLIC [id number] 00:00:00* Test Item Value Reference Range Interpretation Comme nts GLUCOSE (test code = 2217) 86 MG/DL BUN (test code = 2208) 11 MG/DL CREATININE (test code = 2214) 1.12 MG/DL eGFR AMER. (test cod e = 78513) 85 ML/MIN/1.73 eGFR NON- AMER. (test code = 27498) 74 ML/MIN/1.73 CALC BUN/CREAT (test code = 2235) 10 RATIO SODIUM (test code = 2231) 143 MEQ/L POTASSIUM (test code = 2228) 4.2 MEQ/L CHLORIDE (test code = 2215) 101 MEQ/L CARBON DIOXIDE (test code = 2206) 26 MEQ/L CALCIUM (test code = 2209) 9.7 MG/DL PROTEIN, TOTAL (test code = 2229) 7.0 G/DL ALBUMIN (test code = 2201) 4.6 G/DL CALC GLOBULIN (test code = 2240) 2.4 G/DL CALC A/G RATIO (test code = 2234) 1.9 RATIO BILIRUBIN, TOTAL (test code = 2207) 0.5 MG/DL ALKALINE PHOSPHATASE (test code = 2204) 70 U/L AST (test code = 2218) 24 U/L ALT (test code = 2219) 33 U/L PSA, [id number] 00:00:00* Test Item Value Reference Range Interpretation Comme nts PSA, TOTAL (test code = 2606) 0.60 NG/ML Sammy LangCOMPREHENSIVE METABOLIC [id number] 00:00:00* Test Item Value Reference Range Interpretation Comme nts GLUCOSE (test code = 2217) 86 MG/DL BUN (test code = 2208) 11 MG/DL CREATININE (test code = 2214) 1.12 MG/DL eGFR AMER. (test cod e = 31013) 85 ML/MIN/1.73 eGFR NON- AMER. (test code = 85154) 74 ML/MIN/1.73 CALC BUN/CREAT (test code = 2235) 10 RATIO SODIUM (test code = 2231) 143 MEQ/L POTASSIUM (test code = 2228) 4.2 MEQ/L CHLORIDE (test code = 2215) 101 MEQ/L CARBON DIOXIDE (test code = 2206) 26 MEQ/L CALCIUM (test code = 2209) 9.7 MG/DL PROTEIN, TOTAL (test code = 2229) 7.0 G/DL ALBUMIN (test code = 2201) 4.6 G/DL CALC GLOBULIN (test code = 2240) 2.4 G/DL CALC A/G RATIO (test code = 2234) 1.9 RATIO BILIRUBIN, TOTAL (test code = 2207) 0.5 MG/DL ALKALINE PHOSPHATASE (test code = 2204) 70 U/L AST (test code = 2218) 24 U/L ALT (test code = 2219) 33 U/L Sammy Mendez, [id number] 00:00:00* Test Item Value Reference Range Interpretation Comme nts CULTURE, URINE (test code = 11023) SPECIMEN NUMBER: [id number] Sammy Mendez, [id number] 00:00:00* Test Item Value Reference Range Interpretation Comme nts CULTURE, URINE (test code = 20326) SPECIMEN NUMBER: [id number] ELLIOT Lucero2019-05-02 00:00:00* Test Item Value Reference Range Interpretation Comme nts CULTURE, URINE (test code = 72806) SPECIMEN NUMBER: [id number] ELLIOT Lucero2019-05-02 00:00:00* Test Item Value Reference Range Interpretation Comme nts CULTURE, URINE (test code = 85711) SPECIMEN NUMBER: [id number] Sammy Mendez [id number] 00:00:00* Test Item Value Reference Range Interpretation Comme nts CULTURE, URINE (test code = 84984) SPECIMEN NUMBER: [id number] ELLIOT Lucero2019-05-02 00:00:00* Test Item Value Reference Range Interpretation Comme nts CULTURE, URINE (test code = 82061) SPECIMEN NUMBER: [id number] CARLOS [id number] 00:00:00* Test Item Value Reference Range Interpretation Comme nts CULTURE, URINE (test code = 76200) SPECIMEN NUMBER: [id number] ELLIOT Lucero2019-05-02 00:00:00* Test Item Value Reference Range Interpretation Comme nts CULTURE, URINE (test code = 91729) SPECIMEN NUMBER: [id number] ELLIOT Lucero2019-05-02 00:00:00* Test Item Value Reference Range Interpretation Comme nts CULTURE, URINE (test code = 53648) SPECIMEN NUMBER: [id number] Sammy Mendez [id number] 00:00:00* Test Item Value Reference Range Interpretation Comme nts CULTURE, URINE (test code = 04773) SPECIMEN NUMBER: [id number] Sammy Mendez [id number] 00:00:00* Test Item Value Reference Range Interpretation Comme nts CULTURE, URINE (test code = 28624) SPECIMEN NUMBER: [id number] ELLIOT Lucero2019-05-02 00:00:00* Test Item Value Reference Range Interpretation Comme nts CULTURE, URINE (test code = 31265) SPECIMEN NUMBER: [id number] Sammy LangCULTURE, [id number] 00:00:00* Test Item Value Reference Range Interpretation Comme nts CULTURE, URINE (test code = 98622) SPECIMEN NUMBER: [id number] Sammy LangCULTURE, [id number] 00:00:00* Test Item Value Reference Range Interpretation Comme nts CULTURE, URINE (test code = 80575) SPECIMEN NUMBER: [id number] Sammy LangCULTURE, [id number] 00:00:00* Test Item Value Reference Range Interpretation Comme nts CULTURE, URINE (test code = 67944) SPECIMEN NUMBER: [id number] PSA, [id number] 00:00:00* Test Item Value Reference Range Interpretation Comme nts PSA, TOTAL (test code = 2606) 0.53 NG/ML Sammy LangCBC W/AUTO [id number] 00:00:00* Test Item Value Reference Range Interpretation Comme nts WBC (test code = 1001) 4.3 K/UL RBC (test code = 1002) 4.45 M/UL HEMOGLOBIN (test code = 1003) 14.0 G/DL HEMATOCRIT (test code = 1004) 40.0 % MCV (test code = 1005) 89.9 fL MCH (test code = 1006) 31.5 PG MCHC (test code = 1007) 35.0 G/DL RDW (test code = 1038) 12.4 % NEUTROPHILS (test code = 1008) 65.2 % LYMPHOCYTES (test code = 1010) 22.8 % MONOCYTES (test code = 1011) 7.4 % EOSINOPHILS (test code = 1012) 3.9 % BASOPHILS (test code = 1013) 0.7 % PLATELET COUNT (test code = 1015) 160 K/UL Sammy Miller AustinCBC W/AUTO [id number] 00:00:00* Test Item Value Reference Range Interpretation Comme nts WBC (test code = 1001) 4.3 K/UL RBC (test code = 1002) 4.45 M/UL HEMOGLOBIN (test code = 1003) 14.0 G/DL HEMATOCRIT (test code = 1004) 40.0 % MCV (test code = 1005) 89.9 fL MCH (test code = 1006) 31.5 PG MCHC (test code = 1007) 35.0 G/DL RDW (test code = 1038) 12.4 % NEUTROPHILS (test code = 1008) 65.2 % LYMPHOCYTES (test code = 1010) 22.8 % MONOCYTES (test code = 1011) 7.4 % EOSINOPHILS (test code = 1012) 3.9 % BASOPHILS (test code = 1013) 0.7 % PLATELET COUNT (test code = 1015) 160 K/UL COMPREHENSIVE METABOLIC [id number] 00:00:00* Test Item Value Reference Range Interpretation Comme nts GLUCOSE (test code = 2217) 94 MG/DL BUN (test code = 2208) 9 MG/DL CREATININE (test code = 2214) 1.10 MG/DL eGFR AMER. (test cod e = 90217) 88 ML/MIN/1.73 eGFR NON- AMER. (test code = 54635) 76 ML/MIN/1.73 CALC BUN/CREAT (test code = 2235) 8 RATIO SODIUM (test code = 2231) 143 MEQ/L POTASSIUM (test code = 2228) 3.8 MEQ/L CHLORIDE (test code = 2215) 102 MEQ/L CARBON DIOXIDE (test code = 2206) 30 MEQ/L CALCIUM (test code = 2209) 10.0 MG/DL PROTEIN, TOTAL (test code = 2229) 7.1 G/DL ALBUMIN (test code = 2201) 4.8 G/DL CALC GLOBULIN (test code = 2240) 2.3 G/DL CALC A/G RATIO (test code = 2234) 2.1 RATIO BILIRUBIN, TOTAL (test code = 2207) 0.6 MG/DL ALKALINE PHOSPHATASE (test code = 2204) 81 U/L AST (test code = 2218) 21 U/L ALT (test code = 2219) 16 U/L Sammy LangPSA, [id number] 00:00:00* Test Item Value Reference Range Interpretation Comme nts PSA, TOTAL (test code = 2606) 0.53 NG/ML Sammy LangCBC W/AUTO [id number] 00:00:00* Test Item Value Reference Range Interpretation Comme nts WBC (test code = 1001) 4.3 K/UL RBC (test code = 1002) 4.45 M/UL HEMOGLOBIN (test code = 1003) 14.0 G/DL HEMATOCRIT (test code = 1004) 40.0 % MCV (test code = 1005) 89.9 fL MCH (test code = 1006) 31.5 PG MCHC (test code = 1007) 35.0 G/DL RDW (test code = 1038) 12.4 % NEUTROPHILS (test code = 1008) 65.2 % LYMPHOCYTES (test code = 1010) 22.8 % MONOCYTES (test code = 1011) 7.4 % EOSINOPHILS (test code = 1012) 3.9 % BASOPHILS (test code = 1013) 0.7 % PLATELET COUNT (test code = 1015) 160 K/UL Sammy Miller RickeyCOMPREHENSIVE METABOLIC [id number] 00:00:00* Test Item Value Reference Range Interpretation Comme nts GLUCOSE (test code = 2217) 94 MG/DL BUN (test code = 2208) 9 MG/DL CREATININE (test code = 2214) 1.10 MG/DL eGFR AMER. (test cod e = 23618) 88 ML/MIN/1.73 eGFR NON- AMER. (test code = 15987) 76 ML/MIN/1.73 CALC BUN/CREAT (test code = 2235) 8 RATIO SODIUM (test code = 2231) 143 MEQ/L POTASSIUM (test code = 2228) 3.8 MEQ/L CHLORIDE (test code = 2215) 102 MEQ/L CARBON DIOXIDE (test code = 2206) 30 MEQ/L CALCIUM (test code = 2209) 10.0 MG/DL PROTEIN, TOTAL (test code = 2229) 7.1 G/DL ALBUMIN (test code = 2201) 4.8 G/DL CALC GLOBULIN (test code = 2240) 2.3 G/DL CALC A/G RATIO (test code = 2234) 2.1 RATIO BILIRUBIN, TOTAL (test code = 2207) 0.6 MG/DL ALKALINE PHOSPHATASE (test code = 2204) 81 U/L AST (test code = 2218) 21 U/L ALT (test code = 2219) 16 U/L COMPREHENSIVE METABOLIC [id number] 00:00:00* Test Item Value Reference Range Interpretation Comme nts GLUCOSE (test code = 2217) 94 MG/DL BUN (test code = 2208) 9 MG/DL CREATININE (test code = 2214) 1.10 MG/DL eGFR AMER. (test cod e = ) 88 ML/MIN/1.73 eGFR NON- AMER. (test code = 77085) 76 ML/MIN/1.73 CALC BUN/CREAT (test code = 2235) 8 RATIO SODIUM (test code = 2231) 143 MEQ/L POTASSIUM (test code = 2228) 3.8 MEQ/L CHLORIDE (test code = 2215) 102 MEQ/L CARBON DIOXIDE (test code = 2206) 30 MEQ/L CALCIUM (test code = 2209) 10.0 MG/DL PROTEIN, TOTAL (test code = 2229) 7.1 G/DL ALBUMIN (test code = 2201) 4.8 G/DL CALC GLOBULIN (test code = 2240) 2.3 G/DL CALC A/G RATIO (test code = 2234) 2.1 RATIO BILIRUBIN, TOTAL (test code = 2207) 0.6 MG/DL ALKALINE PHOSPHATASE (test code = 2204) 81 U/L AST (test code = 2218) 21 U/L ALT (test code = 2219) 16 U/L Sammy LangPSA, [id number] 00:00:00* Test Item Value Reference Range Interpretation Comme nts PSA, TOTAL (test code = 2606) 0.53 NG/ML Sammy Miller RickeyC W/AUTO [id number] 00:00:00* Test Item Value Reference Range Interpretation Comme nts WBC (test code = 1001) 4.3 K/UL RBC (test code = 1002) 4.45 M/UL HEMOGLOBIN (test code = 1003) 14.0 G/DL HEMATOCRIT (test code = 1004) 40.0 % MCV (test code = 1005) 89.9 fL MCH (test code = 1006) 31.5 PG MCHC (test code = 1007) 35.0 G/DL RDW (test code = 1038) 12.4 % NEUTROPHILS (test code = 1008) 65.2 % LYMPHOCYTES (test code = 1010) 22.8 % MONOCYTES (test code = 1011) 7.4 % EOSINOPHILS (test code = 1012) 3.9 % BASOPHILS (test code = 1013) 0.7 % PLATELET COUNT (test code = 1015) 160 K/UL Sammy LangCOMPREHENSIVE METABOLIC [id number] 00:00:00* Test Item Value Reference Range Interpretation Comme nts GLUCOSE (test code = 2217) 94 MG/DL BUN (test code = 2208) 9 MG/DL CREATININE (test code = 2214) 1.10 MG/DL eGFR AMER. (test cod e = 62389) 88 ML/MIN/1.73 eGFR NON- AMER. (test code = 65004) 76 ML/MIN/1.73 CALC BUN/CREAT (test code = 2235) 8 RATIO SODIUM (test code = 2231) 143 MEQ/L POTASSIUM (test code = 2228) 3.8 MEQ/L CHLORIDE (test code = 2215) 102 MEQ/L CARBON DIOXIDE (test code = 2206) 30 MEQ/L CALCIUM (test code = 2209) 10.0 MG/DL PROTEIN, TOTAL (test code = 2229) 7.1 G/DL ALBUMIN (test code = 2201) 4.8 G/DL CALC GLOBULIN (test code = 2240) 2.3 G/DL CALC A/G RATIO (test code = 2234) 2.1 RATIO BILIRUBIN, TOTAL (test code = 2207) 0.6 MG/DL ALKALINE PHOSPHATASE (test code = 2204) 81 U/L AST (test code = 2218) 21 U/L ALT (test code = 2219) 16 U/L Sammy LangPSA, [id number] 00:00:00* Test Item Value Reference Range Interpretation Comme nts PSA, TOTAL (test code = 2606) 0.53 NG/ML Sammy LangCBC W/AUTO [id number] 00:00:00* Test Item Value Reference Range Interpretation Comme nts WBC (test code = 1001) 4.3 K/UL RBC (test code = 1002) 4.45 M/UL HEMOGLOBIN (test code = 1003) 14.0 G/DL HEMATOCRIT (test code = 1004) 40.0 % MCV (test code = 1005) 89.9 fL MCH (test code = 1006) 31.5 PG MCHC (test code = 1007) 35.0 G/DL RDW (test code = 1038) 12.4 % NEUTROPHILS (test code = 1008) 65.2 % LYMPHOCYTES (test code = 1010) 22.8 % MONOCYTES (test code = 1011) 7.4 % EOSINOPHILS (test code = 1012) 3.9 % BASOPHILS (test code = 1013) 0.7 % PLATELET COUNT (test code = 1015) 160 K/UL Sammy LangCOMPREHENSIVE METABOLIC [id number] 00:00:00* Test Item Value Reference Range Interpretation Comme nts GLUCOSE (test code = 2217) 94 MG/DL BUN (test code = 2208) 9 MG/DL CREATININE (test code = 2214) 1.10 MG/DL eGFR AMER. (test cod e = 39939) 88 ML/MIN/1.73 eGFR NON- AMER. (test code = 62304) 76 ML/MIN/1.73 CALC BUN/CREAT (test code = 2235) 8 RATIO SODIUM (test code = 2231) 143 MEQ/L POTASSIUM (test code = 2228) 3.8 MEQ/L CHLORIDE (test code = 2215) 102 MEQ/L CARBON DIOXIDE (test code = 2206) 30 MEQ/L CALCIUM (test code = 2209) 10.0 MG/DL PROTEIN, TOTAL (test code = 2229) 7.1 G/DL ALBUMIN (test code = 2201) 4.8 G/DL CALC GLOBULIN (test code = 2240) 2.3 G/DL CALC A/G RATIO (test code = 2234) 2.1 RATIO BILIRUBIN, TOTAL (test code = 2207) 0.6 MG/DL ALKALINE PHOSPHATASE (test code = 2204) 81 U/L AST (test code = 2218) 21 U/L ALT (test code = 2219) 16 U/L Sammy LangPSA, [id number] 00:00:00* Test Item Value Reference Range Interpretation Comme nts PSA, TOTAL (test code = 2606) 0.53 NG/ML Sammy LangCBC W/AUTO [id number] 00:00:00* Test Item Value Reference Range Interpretation Comme nts WBC (test code = 1001) 4.3 K/UL RBC (test code = 1002) 4.45 M/UL HEMOGLOBIN (test code = 1003) 14.0 G/DL HEMATOCRIT (test code = 1004) 40.0 % MCV (test code = 1005) 89.9 fL MCH (test code = 1006) 31.5 PG MCHC (test code = 1007) 35.0 G/DL RDW (test code = 1038) 12.4 % NEUTROPHILS (test code = 1008) 65.2 % LYMPHOCYTES (test code = 1010) 22.8 % MONOCYTES (test code = 1011) 7.4 % EOSINOPHILS (test code = 1012) 3.9 % BASOPHILS (test code = 1013) 0.7 % PLATELET COUNT (test code = 1015) 160 K/UL Sammy F RickeyCOMPREHENSIVE METABOLIC [id number] 00:00:00* Test Item Value Reference Range Interpretation Comme nts GLUCOSE (test code = 2217) 94 MG/DL BUN (test code = 2208) 9 MG/DL CREATININE (test code = 2214) 1.10 MG/DL eGFR AMER. (test cod e = 02149) 88 ML/MIN/1.73 eGFR NON- AMER. (test code = 06383) 76 ML/MIN/1.73 CALC BUN/CREAT (test code = 2235) 8 RATIO SODIUM (test code = 2231) 143 MEQ/L POTASSIUM (test code = 2228) 3.8 MEQ/L CHLORIDE (test code = 2215) 102 MEQ/L CARBON DIOXIDE (test code = 2206) 30 MEQ/L CALCIUM (test code = 2209) 10.0 MG/DL PROTEIN, TOTAL (test code = 2229) 7.1 G/DL ALBUMIN (test code = 2201) 4.8 G/DL CALC GLOBULIN (test code = 2240) 2.3 G/DL CALC A/G RATIO (test code = 2234) 2.1 RATIO BILIRUBIN, TOTAL (test code = 2207) 0.6 MG/DL ALKALINE PHOSPHATASE (test code = 2204) 81 U/L AST (test code = 2218) 21 U/L ALT (test code = 2219) 16 U/L Sammy Angela RickeyPSA, [id number] 00:00:00* Test Item Value Reference Range Interpretation Comme nts PSA, TOTAL (test code = 2606) 0.53 NG/ML Sammy LangCBC W/AUTO [id number] 00:00:00* Test Item Value Reference Range Interpretation Comme nts WBC (test code = 1001) 4.3 K/UL RBC (test code = 1002) 4.45 M/UL HEMOGLOBIN (test code = 1003) 14.0 G/DL HEMATOCRIT (test code = 1004) 40.0 % MCV (test code = 1005) 89.9 fL MCH (test code = 1006) 31.5 PG MCHC (test code = 1007) 35.0 G/DL RDW (test code = 1038) 12.4 % NEUTROPHILS (test code = 1008) 65.2 % LYMPHOCYTES (test code = 1010) 22.8 % MONOCYTES (test code = 1011) 7.4 % EOSINOPHILS (test code = 1012) 3.9 % BASOPHILS (test code = 1013) 0.7 % PLATELET COUNT (test code = 1015) 160 K/UL Sammy LangCOMPREHENSIVE METABOLIC [id number] 00:00:00* Test Item Value Reference Range Interpretation Comme nts GLUCOSE (test code = 2217) 94 MG/DL BUN (test code = 2208) 9 MG/DL CREATININE (test code = 2214) 1.10 MG/DL eGFR AMER. (test cod e = 10881) 88 ML/MIN/1.73 eGFR NON- AMER. (test code = 55468) 76 ML/MIN/1.73 CALC BUN/CREAT (test code = 2235) 8 RATIO SODIUM (test code = 2231) 143 MEQ/L POTASSIUM (test code = 2228) 3.8 MEQ/L CHLORIDE (test code = 2215) 102 MEQ/L CARBON DIOXIDE (test code = 2206) 30 MEQ/L CALCIUM (test code = 2209) 10.0 MG/DL PROTEIN, TOTAL (test code = 2229) 7.1 G/DL ALBUMIN (test code = 2201) 4.8 G/DL CALC GLOBULIN (test code = 2240) 2.3 G/DL CALC A/G RATIO (test code = 2234) 2.1 RATIO BILIRUBIN, TOTAL (test code = 2207) 0.6 MG/DL ALKALINE PHOSPHATASE (test code = 2204) 81 U/L AST (test code = 2218) 21 U/L ALT (test code = 2219) 16 U/L Sammy LangPSA, [id number] 00:00:00* Test Item Value Reference Range Interpretation Comme nts PSA, TOTAL (test code = 2606) 0.53 NG/ML PSA, [id number] 00:00:00* Test Item Value Reference Range Interpretation Comme nts PSA, TOTAL (test code = 2606) 0.53 NG/ML Sammy LangCBC W/AUTO [id number] 00:00:00* Test Item Value Reference Range Interpretation Comme nts WBC (test code = 1001) 4.3 K/UL RBC (test code = 1002) 4.45 M/UL HEMOGLOBIN (test code = 1003) 14.0 G/DL HEMATOCRIT (test code = 1004) 40.0 % MCV (test code = 1005) 89.9 fL MCH (test code = 1006) 31.5 PG MCHC (test code = 1007) 35.0 G/DL RDW (test code = 1038) 12.4 % NEUTROPHILS (test code = 1008) 65.2 % LYMPHOCYTES (test code = 1010) 22.8 % MONOCYTES (test code = 1011) 7.4 % EOSINOPHILS (test code = 1012) 3.9 % BASOPHILS (test code = 1013) 0.7 % PLATELET COUNT (test code = 1015) 160 K/UL Sammy LangCOMPREHENSIVE METABOLIC [id number] 00:00:00* Test Item Value Reference Range Interpretation Comme nts GLUCOSE (test code = 2217) 94 MG/DL BUN (test code = 2208) 9 MG/DL CREATININE (test code = 2214) 1.10 MG/DL eGFR AMER. (test cod e = 52544) 88 ML/MIN/1.73 eGFR NON- AMER. (test code = 48074) 76 ML/MIN/1.73 CALC BUN/CREAT (test code = 2235) 8 RATIO SODIUM (test code = 2231) 143 MEQ/L POTASSIUM (test code = 2228) 3.8 MEQ/L CHLORIDE (test code = 2215) 102 MEQ/L CARBON DIOXIDE (test code = 2206) 30 MEQ/L CALCIUM (test code = 2209) 10.0 MG/DL PROTEIN, TOTAL (test code = 2229) 7.1 G/DL ALBUMIN (test code = 2201) 4.8 G/DL CALC GLOBULIN (test code = 2240) 2.3 G/DL CALC A/G RATIO (test code = 2234) 2.1 RATIO BILIRUBIN, TOTAL (test code = 2207) 0.6 MG/DL ALKALINE PHOSPHATASE (test code = 2204) 81 U/L AST (test code = 2218) 21 U/L ALT (test code = 2219) 16 U/L Sammy MeekA, [id number] 00:00:00* Test Item Value Reference Range Interpretation Comme nts PSA, TOTAL (test code = 2606) 0.53 NG/ML Sammy LangCBC W/AUTO [id number] 00:00:00* Test Item Value Reference Range Interpretation Comme nts WBC (test code = 1001) 4.3 K/UL RBC (test code = 1002) 4.45 M/UL HEMOGLOBIN (test code = 1003) 14.0 G/DL HEMATOCRIT (test code = 1004) 40.0 % MCV (test code = 1005) 89.9 fL MCH (test code = 1006) 31.5 PG MCHC (test code = 1007) 35.0 G/DL RDW (test code = 1038) 12.4 % NEUTROPHILS (test code = 1008) 65.2 % LYMPHOCYTES (test code = 1010) 22.8 % MONOCYTES (test code = 1011) 7.4 % EOSINOPHILS (test code = 1012) 3.9 % BASOPHILS (test code = 1013) 0.7 % PLATELET COUNT (test code = 1015) 160 K/UL Sammy LangCBC W/AUTO [id number] 00:00:00* Test Item Value Reference Range Interpretation Comme nts WBC (test code = 1001) 4.3 K/UL RBC (test code = 1002) 4.45 M/UL HEMOGLOBIN (test code = 1003) 14.0 G/DL HEMATOCRIT (test code = 1004) 40.0 % MCV (test code = 1005) 89.9 fL MCH (test code = 1006) 31.5 PG MCHC (test code = 1007) 35.0 G/DL RDW (test code = 1038) 12.4 % NEUTROPHILS (test code = 1008) 65.2 % LYMPHOCYTES (test code = 1010) 22.8 % MONOCYTES (test code = 1011) 7.4 % EOSINOPHILS (test code = 1012) 3.9 % BASOPHILS (test code = 1013) 0.7 % PLATELET COUNT (test code = 1015) 160 K/UL COMPREHENSIVE METABOLIC [id number] 00:00:00* Test Item Value Reference Range Interpretation Comme nts GLUCOSE (test code = 2217) 94 MG/DL BUN (test code = 2208) 9 MG/DL CREATININE (test code = 2214) 1.10 MG/DL eGFR AMER. (test cod e = 46206) 88 ML/MIN/1.73 eGFR NON- AMER. (test code = 57469) 76 ML/MIN/1.73 CALC BUN/CREAT (test code = 2235) 8 RATIO SODIUM (test code = 2231) 143 MEQ/L POTASSIUM (test code = 2228) 3.8 MEQ/L CHLORIDE (test code = 2215) 102 MEQ/L CARBON DIOXIDE (test code = 2206) 30 MEQ/L CALCIUM (test code = 2209) 10.0 MG/DL PROTEIN, TOTAL (test code = 2229) 7.1 G/DL ALBUMIN (test code = 2201) 4.8 G/DL CALC GLOBULIN (test code = 2240) 2.3 G/DL CALC A/G RATIO (test code = 2234) 2.1 RATIO BILIRUBIN, TOTAL (test code = 2207) 0.6 MG/DL ALKALINE PHOSPHATASE (test code = 2204) 81 U/L AST (test code = 2218) 21 U/L ALT (test code = 2219) 16 U/L Sammy MeekA, [id number] 00:00:00* Test Item Value Reference Range Interpretation Comme nts PSA, TOTAL (test code = 2606) 0.53 NG/ML Sammy LangCBC W/AUTO [id number] 00:00:00* Test Item Value Reference Range Interpretation Comme nts WBC (test code = 1001) 4.3 K/UL RBC (test code = 1002) 4.45 M/UL HEMOGLOBIN (test code = 1003) 14.0 G/DL HEMATOCRIT (test code = 1004) 40.0 % MCV (test code = 1005) 89.9 fL MCH (test code = 1006) 31.5 PG MCHC (test code = 1007) 35.0 G/DL RDW (test code = 1038) 12.4 % NEUTROPHILS (test code = 1008) 65.2 % LYMPHOCYTES (test code = 1010) 22.8 % MONOCYTES (test code = 1011) 7.4 % EOSINOPHILS (test code = 1012) 3.9 % BASOPHILS (test code = 1013) 0.7 % PLATELET COUNT (test code = 1015) 160 K/UL Sammy Miller RickeyCOMPREHENSIVE METABOLIC [id number] 00:00:00* Test Item Value Reference Range Interpretation Comme nts GLUCOSE (test code = 2217) 94 MG/DL BUN (test code = 2208) 9 MG/DL CREATININE (test code = 2214) 1.10 MG/DL eGFR AMER. (test cod e = 10564) 88 ML/MIN/1.73 eGFR NON- AMER. (test code = 26985) 76 ML/MIN/1.73 CALC BUN/CREAT (test code = 2235) 8 RATIO SODIUM (test code = 2231) 143 MEQ/L POTASSIUM (test code = 2228) 3.8 MEQ/L CHLORIDE (test code = 2215) 102 MEQ/L CARBON DIOXIDE (test code = 2206) 30 MEQ/L CALCIUM (test code = 2209) 10.0 MG/DL PROTEIN, TOTAL (test code = 2229) 7.1 G/DL ALBUMIN (test code = 2201) 4.8 G/DL CALC GLOBULIN (test code = 2240) 2.3 G/DL CALC A/G RATIO (test code = 2234) 2.1 RATIO BILIRUBIN, TOTAL (test code = 2207) 0.6 MG/DL ALKALINE PHOSPHATASE (test code = 2204) 81 U/L AST (test code = 2218) 21 U/L ALT (test code = 2219) 16 U/L Sammy Miller RickeyPSA, [id number] 00:00:00* Test Item Value Reference Range Interpretation Comme nts PSA, TOTAL (test code = 2606) 0.53 NG/ML Sammy Miller RickeyCBC W/AUTO [id number] 00:00:00* Test Item Value Reference Range Interpretation Comme nts WBC (test code = 1001) 4.3 K/UL RBC (test code = 1002) 4.45 M/UL HEMOGLOBIN (test code = 1003) 14.0 G/DL HEMATOCRIT (test code = 1004) 40.0 % MCV (test code = 1005) 89.9 fL MCH (test code = 1006) 31.5 PG MCHC (test code = 1007) 35.0 G/DL RDW (test code = 1038) 12.4 % NEUTROPHILS (test code = 1008) 65.2 % LYMPHOCYTES (test code = 1010) 22.8 % MONOCYTES (test code = 1011) 7.4 % EOSINOPHILS (test code = 1012) 3.9 % BASOPHILS (test code = 1013) 0.7 % PLATELET COUNT (test code = 1015) 160 K/UL Sammy LangCOMPREHENSIVE METABOLIC [id number] 00:00:00* Test Item Value Reference Range Interpretation Comme nts GLUCOSE (test code = 2217) 94 MG/DL BUN (test code = 2208) 9 MG/DL CREATININE (test code = 2214) 1.10 MG/DL eGFR AMER. (test cod e = 25711) 88 ML/MIN/1.73 eGFR NON- AMER. (test code = 44186) 76 ML/MIN/1.73 CALC BUN/CREAT (test code = 2235) 8 RATIO SODIUM (test code = 2231) 143 MEQ/L POTASSIUM (test code = 2228) 3.8 MEQ/L CHLORIDE (test code = 2215) 102 MEQ/L CARBON DIOXIDE (test code = 2206) 30 MEQ/L CALCIUM (test code = 2209) 10.0 MG/DL PROTEIN, TOTAL (test code = 2229) 7.1 G/DL ALBUMIN (test code = 2201) 4.8 G/DL CALC GLOBULIN (test code = 2240) 2.3 G/DL CALC A/G RATIO (test code = 2234) 2.1 RATIO BILIRUBIN, TOTAL (test code = 2207) 0.6 MG/DL ALKALINE PHOSPHATASE (test code = 2204) 81 U/L AST (test code = 2218) 21 U/L ALT (test code = 2219) 16 U/L Sammy LangPSA, [id number] 00:00:00* Test Item Value Reference Range Interpretation Comme nts PSA, TOTAL (test code = 2606) 0.53 NG/ML Sammy LangCBC W/AUTO [id number] 00:00:00* Test Item Value Reference Range Interpretation Comme nts WBC (test code = 1001) 4.3 K/UL RBC (test code = 1002) 4.45 M/UL HEMOGLOBIN (test code = 1003) 14.0 G/DL HEMATOCRIT (test code = 1004) 40.0 % MCV (test code = 1005) 89.9 fL MCH (test code = 1006) 31.5 PG MCHC (test code = 1007) 35.0 G/DL RDW (test code = 1038) 12.4 % NEUTROPHILS (test code = 1008) 65.2 % LYMPHOCYTES (test code = 1010) 22.8 % MONOCYTES (test code = 1011) 7.4 % EOSINOPHILS (test code = 1012) 3.9 % BASOPHILS (test code = 1013) 0.7 % PLATELET COUNT (test code = 1015) 160 K/UL Sammy LangCOMPREHENSIVE METABOLIC [id number] 00:00:00* Test Item Value Reference Range Interpretation Comme nts GLUCOSE (test code = 2217) 94 MG/DL BUN (test code = 2208) 9 MG/DL CREATININE (test code = 2214) 1.10 MG/DL eGFR AMER. (test cod e = 00544) 88 ML/MIN/1.73 eGFR NON- AMER. (test code = 66311) 76 ML/MIN/1.73 CALC BUN/CREAT (test code = 2235) 8 RATIO SODIUM (test code = 2231) 143 MEQ/L POTASSIUM (test code = 2228) 3.8 MEQ/L CHLORIDE (test code = 2215) 102 MEQ/L CARBON DIOXIDE (test code = 2206) 30 MEQ/L CALCIUM (test code = 2209) 10.0 MG/DL PROTEIN, TOTAL (test code = 2229) 7.1 G/DL ALBUMIN (test code = 2201) 4.8 G/DL CALC GLOBULIN (test code = 2240) 2.3 G/DL CALC A/G RATIO (test code = 2234) 2.1 RATIO BILIRUBIN, TOTAL (test code = 2207) 0.6 MG/DL ALKALINE PHOSPHATASE (test code = 2204) 81 U/L AST (test code = 2218) 21 U/L ALT (test code = 2219) 16 U/L COMPREHENSIVE METABOLIC [id number] 00:00:00* Test Item Value Reference Range Interpretation Comme nts GLUCOSE (test code = 2217) 94 MG/DL BUN (test code = 2208) 9 MG/DL CREATININE (test code = 2214) 1.10 MG/DL eGFR AMER. (test cod e = 22473) 88 ML/MIN/1.73 eGFR NON- AMER. (test code = 00963) 76 ML/MIN/1.73 CALC BUN/CREAT (test code = 2235) 8 RATIO SODIUM (test code = 2231) 143 MEQ/L POTASSIUM (test code = 2228) 3.8 MEQ/L CHLORIDE (test code = 2215) 102 MEQ/L CARBON DIOXIDE (test code = 2206) 30 MEQ/L CALCIUM (test code = 2209) 10.0 MG/DL PROTEIN, TOTAL (test code = 2229) 7.1 G/DL ALBUMIN (test code = 2201) 4.8 G/DL CALC GLOBULIN (test code = 2240) 2.3 G/DL CALC A/G RATIO (test code = 2234) 2.1 RATIO BILIRUBIN, TOTAL (test code = 2207) 0.6 MG/DL ALKALINE PHOSPHATASE (test code = 2204) 81 U/L AST (test code = 2218) 21 U/L ALT (test code = 2219) 16 U/L Sammy Miller RickeyPSA, [id number] 00:00:00* Test Item Value Reference Range Interpretation Comme nts PSA, TOTAL (test code = 2606) 0.53 NG/ML Sammy Miller RickeyCBC W/AUTO [id number] 00:00:00* Test Item Value Reference Range Interpretation Comme nts WBC (test code = 1001) 4.3 K/UL RBC (test code = 1002) 4.45 M/UL HEMOGLOBIN (test code = 1003) 14.0 G/DL HEMATOCRIT (test code = 1004) 40.0 % MCV (test code = 1005) 89.9 fL MCH (test code = 1006) 31.5 PG MCHC (test code = 1007) 35.0 G/DL RDW (test code = 1038) 12.4 % NEUTROPHILS (test code = 1008) 65.2 % LYMPHOCYTES (test code = 1010) 22.8 % MONOCYTES (test code = 1011) 7.4 % EOSINOPHILS (test code = 1012) 3.9 % BASOPHILS (test code = 1013) 0.7 % PLATELET COUNT (test code = 1015) 160 K/UL Sammy LangCOMPREHENSIVE METABOLIC [id number] 00:00:00* Test Item Value Reference Range Interpretation Comme nts GLUCOSE (test code = 2217) 94 MG/DL BUN (test code = 2208) 9 MG/DL CREATININE (test code = 2214) 1.10 MG/DL eGFR AMER. (test cod e = 72579) 88 ML/MIN/1.73 eGFR NON- AMER. (test code = 60018) 76 ML/MIN/1.73 CALC BUN/CREAT (test code = 2235) 8 RATIO SODIUM (test code = 2231) 143 MEQ/L POTASSIUM (test code = 2228) 3.8 MEQ/L CHLORIDE (test code = 2215) 102 MEQ/L CARBON DIOXIDE (test code = 2206) 30 MEQ/L CALCIUM (test code = 2209) 10.0 MG/DL PROTEIN, TOTAL (test code = 2229) 7.1 G/DL ALBUMIN (test code = 2201) 4.8 G/DL CALC GLOBULIN (test code = 2240) 2.3 G/DL CALC A/G RATIO (test code = 2234) 2.1 RATIO BILIRUBIN, TOTAL (test code = 2207) 0.6 MG/DL ALKALINE PHOSPHATASE (test code = 2204) 81 U/L AST (test code = 2218) 21 U/L ALT (test code = 2219) 16 U/L Sammy LangPSA, [id number] 00:00:00* Test Item Value Reference Range Interpretation Comme nts PSA, TOTAL (test code = 2606) 0.53 NG/ML Sammy LangCBC W/AUTO [id number] 00:00:00* Test Item Value Reference Range Interpretation Comme nts WBC (test code = 1001) 4.3 K/UL RBC (test code = 1002) 4.45 M/UL HEMOGLOBIN (test code = 1003) 14.0 G/DL HEMATOCRIT (test code = 1004) 40.0 % MCV (test code = 1005) 89.9 fL MCH (test code = 1006) 31.5 PG MCHC (test code = 1007) 35.0 G/DL RDW (test code = 1038) 12.4 % NEUTROPHILS (test code = 1008) 65.2 % LYMPHOCYTES (test code = 1010) 22.8 % MONOCYTES (test code = 1011) 7.4 % EOSINOPHILS (test code = 1012) 3.9 % BASOPHILS (test code = 1013) 0.7 % PLATELET COUNT (test code = 1015) 160 K/UL Sammy LangCOMPREHENSIVE METABOLIC [id number] 00:00:00* Test Item Value Reference Range Interpretation Comme nts GLUCOSE (test code = 2217) 94 MG/DL BUN (test code = 2208) 9 MG/DL CREATININE (test code = 2214) 1.10 MG/DL eGFR AMER. (test cod e = 23930) 88 ML/MIN/1.73 eGFR NON- AMER. (test code = 43435) 76 ML/MIN/1.73 CALC BUN/CREAT (test code = 2235) 8 RATIO SODIUM (test code = 2231) 143 MEQ/L POTASSIUM (test code = 2228) 3.8 MEQ/L CHLORIDE (test code = 2215) 102 MEQ/L CARBON DIOXIDE (test code = 2206) 30 MEQ/L CALCIUM (test code = 2209) 10.0 MG/DL PROTEIN, TOTAL (test code = 2229) 7.1 G/DL ALBUMIN (test code = 2201) 4.8 G/DL CALC GLOBULIN (test code = 2240) 2.3 G/DL CALC A/G RATIO (test code = 2234) 2.1 RATIO BILIRUBIN, TOTAL (test code = 2207) 0.6 MG/DL ALKALINE PHOSPHATASE (test code = 2204) 81 U/L AST (test code = 2218) 21 U/L ALT (test code = 2219) 16 U/L Sammy Miller RickeyPSA, [id number] 00:00:00* Test Item Value Reference Range Interpretation Comme nts PSA, TOTAL (test code = 2606) 0.53 NG/ML COMPREHENSIVE METABOLIC [id number] 00:00:00* Test Item Value Reference Range Interpretation Comme nts GLUCOSE (test code = 2217) 96 MG/DL BUN (test code = 2208) 12 MG/DL CREATININE (test code = 2214) 1.11 MG/DL eGFR AMER. (test cod e = 14586) 88 ML/MIN/1.73 eGFR NON- AMER. (test code = 96674) 76 ML/MIN/1.73 CALC BUN/CREAT (test code = 2235) 11 RATIO SODIUM (test code = 2231) 141 MEQ/L POTASSIUM (test code = 2228) 4.3 MEQ/L CHLORIDE (test code = 2215) 98 MEQ/L CARBON DIOXIDE (test code = 2206) 28 MEQ/L CALCIUM (test code = 2209) 10.0 MG/DL PROTEIN, TOTAL (test code = 2229) 8.1 G/DL ALBUMIN (test code = 2201) 5.0 G/DL CALC GLOBULIN (test code = 2240) 3.1 G/DL CALC A/G RATIO (test code = 2234) 1.6 RATIO BILIRUBIN, TOTAL (test code = 2207) 0.8 MG/DL ALKALINE PHOSPHATASE (test code = 2204) 90 U/L AST (test code = 2218) 21 U/L ALT (test code = 2219) 20 U/L HEMOGLOBIN [id number] 00:00:00* Test Item Value Reference Range Interpretation Comme nts HEMOGLOBIN A1c (test code = 52586) 5.3 % Sammy F AustinCOMPREHENSIVE METABOLIC [id number] 00:00:00* Test Item Value Reference Range Interpretation Comme nts GLUCOSE (test code = 2217) 96 MG/DL BUN (test code = 2208) 12 MG/DL CREATININE (test code = 2214) 1.11 MG/DL eGFR AMER. (test cod e = 65426) 88 ML/MIN/1.73 eGFR NON- AMER. (test code = 10183) 76 ML/MIN/1.73 CALC BUN/CREAT (test code = 2235) 11 RATIO SODIUM (test code = 2231) 141 MEQ/L POTASSIUM (test code = 2228) 4.3 MEQ/L CHLORIDE (test code = 2215) 98 MEQ/L CARBON DIOXIDE (test code = 2206) 28 MEQ/L CALCIUM (test code = 2209) 10.0 MG/DL PROTEIN, TOTAL (test code = 2229) 8.1 G/DL ALBUMIN (test code = 2201) 5.0 G/DL CALC GLOBULIN (test code = 2240) 3.1 G/DL CALC A/G RATIO (test code = 2234) 1.6 RATIO BILIRUBIN, TOTAL (test code = 2207) 0.8 MG/DL ALKALINE PHOSPHATASE (test code = 2204) 90 U/L AST (test code = 2218) 21 U/L ALT (test code = 2219) 20 U/L Sammy LangLIPID [id number] 00:00:00* Test Item Value Reference Range Interpretation Comme nts CHOLESTEROL (test code = 2210) 217 MG/DL TRIGLYCERIDES (test code = 2232) 185 MG/DL HDL CHOLESTEROL (test code = 2220) 26 MG/DL CALC LDL CHOL (test code = 2237) 154 MG/DL RISK RATIO LDL/HDL (test cod e = 2238) 5.92 RATIO Sammy Miller RickeyCBC W/AUTO [id number] 00:00:00* Test Item Value Reference Range Interpretation Comme nts WBC (test code = 1001) 7.5 K/UL RBC (test code = 1002) 5.21 M/UL HEMOGLOBIN (test code = 1003) 16.0 G/DL HEMATOCRIT (test code = 1004) 45.8 % MCV (test code = 1005) 87.9 fL MCH (test code = 1006) 30.7 PG MCHC (test code = 1007) 34.9 G/DL RDW (test code = 1038) 12.4 % NEUTROPHILS (test code = 1008) 67.7 % LYMPHOCYTES (test code = 1010) 21.4 % MONOCYTES (test code = 1011) 7.0 % EOSINOPHILS (test code = 1012) 3.2 % BASOPHILS (test code = 1013) 0.7 % PLATELET COUNT (test code = 1015) 225 K/UL Sammy Miller RickeyHEMOGLOBIN [id number] 00:00:00* Test Item Value Reference Range Interpretation Comme nts HEMOGLOBIN A1c (test code = 76235) 5.3 % Sammy Angela RickeyCOMPREHENSIVE METABOLIC [id number] 00:00:00* Test Item Value Reference Range Interpretation Comme nts GLUCOSE (test code = 2217) 96 MG/DL BUN (test code = 2208) 12 MG/DL CREATININE (test code = 2214) 1.11 MG/DL eGFR AMER. (test cod e = 66630) 88 ML/MIN/1.73 eGFR NON- AMER. (test code = 63042) 76 ML/MIN/1.73 CALC BUN/CREAT (test code = 2235) 11 RATIO SODIUM (test code = 2231) 141 MEQ/L POTASSIUM (test code = 2228) 4.3 MEQ/L CHLORIDE (test code = 2215) 98 MEQ/L CARBON DIOXIDE (test code = 2206) 28 MEQ/L CALCIUM (test code = 2209) 10.0 MG/DL PROTEIN, TOTAL (test code = 2229) 8.1 G/DL ALBUMIN (test code = 2201) 5.0 G/DL CALC GLOBULIN (test code = 2240) 3.1 G/DL CALC A/G RATIO (test code = 2234) 1.6 RATIO BILIRUBIN, TOTAL (test code = 2207) 0.8 MG/DL ALKALINE PHOSPHATASE (test code = 2204) 90 U/L AST (test code = 2218) 21 U/L ALT (test code = 2219) 20 U/L Sammy LangLIPID [id number] 00:00:00* Test Item Value Reference Range Interpretation Comme nts CHOLESTEROL (test code = 2210) 217 MG/DL TRIGLYCERIDES (test code = 2232) 185 MG/DL HDL CHOLESTEROL (test code = 2220) 26 MG/DL CALC LDL CHOL (test code = 2237) 154 MG/DL RISK RATIO LDL/HDL (test cod e = 2238) 5.92 RATIO Sammy LangCBC W/AUTO [id number] 00:00:00* Test Item Value Reference Range Interpretation Comme nts WBC (test code = 1001) 7.5 K/UL RBC (test code = 1002) 5.21 M/UL HEMOGLOBIN (test code = 1003) 16.0 G/DL HEMATOCRIT (test code = 1004) 45.8 % MCV (test code = 1005) 87.9 fL MCH (test code = 1006) 30.7 PG MCHC (test code = 1007) 34.9 G/DL RDW (test code = 1038) 12.4 % NEUTROPHILS (test code = 1008) 67.7 % LYMPHOCYTES (test code = 1010) 21.4 % MONOCYTES (test code = 1011) 7.0 % EOSINOPHILS (test code = 1012) 3.2 % BASOPHILS (test code = 1013) 0.7 % PLATELET COUNT (test code = 1015) 225 K/UL Sammy LangHEMOGLOBIN [id number] 00:00:00* Test Item Value Reference Range Interpretation Comme nts HEMOGLOBIN A1c (test code = 07237) 5.3 % Sammy LangLIPID [id number] 00:00:00* Test Item Value Reference Range Interpretation Comme nts CHOLESTEROL (test code = 2210) 217 MG/DL TRIGLYCERIDES (test code = 2232) 185 MG/DL HDL CHOLESTEROL (test code = 2220) 26 MG/DL CALC LDL CHOL (test code = 2237) 154 MG/DL RISK RATIO LDL/HDL (test cod e = 2238) 5.92 RATIO COMPREHENSIVE METABOLIC [id number] 00:00:00* Test Item Value Reference Range Interpretation Comme nts GLUCOSE (test code = 2217) 96 MG/DL BUN (test code = 2208) 12 MG/DL CREATININE (test code = 2214) 1.11 MG/DL eGFR AMER. (test cod e = 78556) 88 ML/MIN/1.73 eGFR NON- AMER. (test code = 36826) 76 ML/MIN/1.73 CALC BUN/CREAT (test code = 2235) 11 RATIO SODIUM (test code = 2231) 141 MEQ/L POTASSIUM (test code = 2228) 4.3 MEQ/L CHLORIDE (test code = 2215) 98 MEQ/L CARBON DIOXIDE (test code = 2206) 28 MEQ/L CALCIUM (test code = 2209) 10.0 MG/DL PROTEIN, TOTAL (test code = 2229) 8.1 G/DL ALBUMIN (test code = 2201) 5.0 G/DL CALC GLOBULIN (test code = 2240) 3.1 G/DL CALC A/G RATIO (test code = 2234) 1.6 RATIO BILIRUBIN, TOTAL (test code = 2207) 0.8 MG/DL ALKALINE PHOSPHATASE (test code = 2204) 90 U/L AST (test code = 2218) 21 U/L ALT (test code = 2219) 20 U/L Sammy LangLIPID [id number] 00:00:00* Test Item Value Reference Range Interpretation Comme nts CHOLESTEROL (test code = 2210) 217 MG/DL TRIGLYCERIDES (test code = 2232) 185 MG/DL HDL CHOLESTEROL (test code = 2220) 26 MG/DL CALC LDL CHOL (test code = 2237) 154 MG/DL RISK RATIO LDL/HDL (test cod e = 2238) 5.92 RATIO Sammy LangCBC W/AUTO [id number] 00:00:00* Test Item Value Reference Range Interpretation Comme nts WBC (test code = 1001) 7.5 K/UL RBC (test code = 1002) 5.21 M/UL HEMOGLOBIN (test code = 1003) 16.0 G/DL HEMATOCRIT (test code = 1004) 45.8 % MCV (test code = 1005) 87.9 fL MCH (test code = 1006) 30.7 PG MCHC (test code = 1007) 34.9 G/DL RDW (test code = 1038) 12.4 % NEUTROPHILS (test code = 1008) 67.7 % LYMPHOCYTES (test code = 1010) 21.4 % MONOCYTES (test code = 1011) 7.0 % EOSINOPHILS (test code = 1012) 3.2 % BASOPHILS (test code = 1013) 0.7 % PLATELET COUNT (test code = 1015) 225 K/UL Sammy LangHEMOGLOBIN [id number] 00:00:00* Test Item Value Reference Range Interpretation Comme stephen HEMOGLOBIN A1c (test code = 93342) 5.3 % Sammy LangCOMPREHENSIVE METABOLIC [id number] 00:00:00* Test Item Value Reference Range Interpretation Comme nts GLUCOSE (test code = 2217) 96 MG/DL BUN (test code = 2208) 12 MG/DL CREATININE (test code = 2214) 1.11 MG/DL eGFR AMER. (test cod e = 40359) 88 ML/MIN/1.73 eGFR NON- AMER. (test code = 28162) 76 ML/MIN/1.73 CALC BUN/CREAT (test code = 2235) 11 RATIO SODIUM (test code = 2231) 141 MEQ/L POTASSIUM (test code = 2228) 4.3 MEQ/L CHLORIDE (test code = 2215) 98 MEQ/L CARBON DIOXIDE (test code = 2206) 28 MEQ/L CALCIUM (test code = 2209) 10.0 MG/DL PROTEIN, TOTAL (test code = 2229) 8.1 G/DL ALBUMIN (test code = 2201) 5.0 G/DL CALC GLOBULIN (test code = 2240) 3.1 G/DL CALC A/G RATIO (test code = 2234) 1.6 RATIO BILIRUBIN, TOTAL (test code = 2207) 0.8 MG/DL ALKALINE PHOSPHATASE (test code = 2204) 90 U/L AST (test code = 2218) 21 U/L ALT (test code = 2219) 20 U/L Sammy Angela James W/AUTO [id number] 00:00:00* Test Item Value Reference Range Interpretation Comme nts WBC (test code = 1001) 7.5 K/UL RBC (test code = 1002) 5.21 M/UL HEMOGLOBIN (test code = 1003) 16.0 G/DL HEMATOCRIT (test code = 1004) 45.8 % MCV (test code = 1005) 87.9 fL MCH (test code = 1006) 30.7 PG MCHC (test code = 1007) 34.9 G/DL RDW (test code = 1038) 12.4 % NEUTROPHILS (test code = 1008) 67.7 % LYMPHOCYTES (test code = 1010) 21.4 % MONOCYTES (test code = 1011) 7.0 % EOSINOPHILS (test code = 1012) 3.2 % BASOPHILS (test code = 1013) 0.7 % PLATELET COUNT (test code = 1015) 225 K/UL LIPID [id number] 00:00:00* Test Item Value Reference Range Interpretation Comme nts CHOLESTEROL (test code = 2210) 217 MG/DL TRIGLYCERIDES (test code = 2232) 185 MG/DL HDL CHOLESTEROL (test code = 2220) 26 MG/DL CALC LDL CHOL (test code = 2237) 154 MG/DL RISK RATIO LDL/HDL (test cod e = 2238) 5.92 RATIO Sammy Miller RickeyC W/AUTO [id number] 00:00:00* Test Item Value Reference Range Interpretation Comme nts WBC (test code = 1001) 7.5 K/UL RBC (test code = 1002) 5.21 M/UL HEMOGLOBIN (test code = 1003) 16.0 G/DL HEMATOCRIT (test code = 1004) 45.8 % MCV (test code = 1005) 87.9 fL MCH (test code = 1006) 30.7 PG MCHC (test code = 1007) 34.9 G/DL RDW (test code = 1038) 12.4 % NEUTROPHILS (test code = 1008) 67.7 % LYMPHOCYTES (test code = 1010) 21.4 % MONOCYTES (test code = 1011) 7.0 % EOSINOPHILS (test code = 1012) 3.2 % BASOPHILS (test code = 1013) 0.7 % PLATELET COUNT (test code = 1015) 225 K/UL Sammy LangHEMOGLOBIN [id number] 00:00:00* Test Item Value Reference Range Interpretation Comme nts HEMOGLOBIN A1c (test code = 78808) 5.3 % Sammy LangCOMPREHENSIVE METABOLIC [id number] 00:00:00* Test Item Value Reference Range Interpretation Comme nts GLUCOSE (test code = 2217) 96 MG/DL BUN (test code = 2208) 12 MG/DL CREATININE (test code = 2214) 1.11 MG/DL eGFR AMER. (test cod e = 69781) 88 ML/MIN/1.73 eGFR NON- AMER. (test code = 89332) 76 ML/MIN/1.73 CALC BUN/CREAT (test code = 2235) 11 RATIO SODIUM (test code = 2231) 141 MEQ/L POTASSIUM (test code = 2228) 4.3 MEQ/L CHLORIDE (test code = 2215) 98 MEQ/L CARBON DIOXIDE (test code = 2206) 28 MEQ/L CALCIUM (test code = 2209) 10.0 MG/DL PROTEIN, TOTAL (test code = 2229) 8.1 G/DL ALBUMIN (test code = 2201) 5.0 G/DL CALC GLOBULIN (test code = 2240) 3.1 G/DL CALC A/G RATIO (test code = 2234) 1.6 RATIO BILIRUBIN, TOTAL (test code = 2207) 0.8 MG/DL ALKALINE PHOSPHATASE (test code = 2204) 90 U/L AST (test code = 2218) 21 U/L ALT (test code = 2219) 20 U/L Sammy LangLIPID [id number] 00:00:00* Test Item Value Reference Range Interpretation Comme nts CHOLESTEROL (test code = 2210) 217 MG/DL TRIGLYCERIDES (test code = 2232) 185 MG/DL HDL CHOLESTEROL (test code = 2220) 26 MG/DL CALC LDL CHOL (test code = 2237) 154 MG/DL RISK RATIO LDL/HDL (test cod e = 2238) 5.92 RATIO Sammy LangCBC W/AUTO [id number] 00:00:00* Test Item Value Reference Range Interpretation Comme nts WBC (test code = 1001) 7.5 K/UL RBC (test code = 1002) 5.21 M/UL HEMOGLOBIN (test code = 1003) 16.0 G/DL HEMATOCRIT (test code = 1004) 45.8 % MCV (test code = 1005) 87.9 fL MCH (test code = 1006) 30.7 PG MCHC (test code = 1007) 34.9 G/DL RDW (test code = 1038) 12.4 % NEUTROPHILS (test code = 1008) 67.7 % LYMPHOCYTES (test code = 1010) 21.4 % MONOCYTES (test code = 1011) 7.0 % EOSINOPHILS (test code = 1012) 3.2 % BASOPHILS (test code = 1013) 0.7 % PLATELET COUNT (test code = 1015) 225 K/UL Sammy LangHEMOGLOBIN [id number] 00:00:00* Test Item Value Reference Range Interpretation Comme stephen HEMOGLOBIN A1c (test code = 92242) 5.3 % Sammy LangCOMPREHENSIVE METABOLIC [id number] 00:00:00* Test Item Value Reference Range Interpretation Comme nts GLUCOSE (test code = 2217) 96 MG/DL BUN (test code = 2208) 12 MG/DL CREATININE (test code = 2214) 1.11 MG/DL eGFR AMER. (test cod e = 69468) 88 ML/MIN/1.73 eGFR NON- AMER. (test code = 48287) 76 ML/MIN/1.73 CALC BUN/CREAT (test code = 2235) 11 RATIO SODIUM (test code = 2231) 141 MEQ/L POTASSIUM (test code = 2228) 4.3 MEQ/L CHLORIDE (test code = 2215) 98 MEQ/L CARBON DIOXIDE (test code = 2206) 28 MEQ/L CALCIUM (test code = 2209) 10.0 MG/DL PROTEIN, TOTAL (test code = 2229) 8.1 G/DL ALBUMIN (test code = 2201) 5.0 G/DL CALC GLOBULIN (test code = 2240) 3.1 G/DL CALC A/G RATIO (test code = 2234) 1.6 RATIO BILIRUBIN, TOTAL (test code = 2207) 0.8 MG/DL ALKALINE PHOSPHATASE (test code = 2204) 90 U/L AST (test code = 2218) 21 U/L ALT (test code = 2219) 20 U/L Sammy Miller RickeyLIPID [id number] 00:00:00* Test Item Value Reference Range Interpretation Comme nts CHOLESTEROL (test code = 2210) 217 MG/DL TRIGLYCERIDES (test code = 2232) 185 MG/DL HDL CHOLESTEROL (test code = 2220) 26 MG/DL CALC LDL CHOL (test code = 2237) 154 MG/DL RISK RATIO LDL/HDL (test cod e = 2238) 5.92 RATIO Sammy Miller RickeyCBC W/AUTO [id number] 00:00:00* Test Item Value Reference Range Interpretation Comme nts WBC (test code = 1001) 7.5 K/UL RBC (test code = 1002) 5.21 M/UL HEMOGLOBIN (test code = 1003) 16.0 G/DL HEMATOCRIT (test code = 1004) 45.8 % MCV (test code = 1005) 87.9 fL MCH (test code = 1006) 30.7 PG MCHC (test code = 1007) 34.9 G/DL RDW (test code = 1038) 12.4 % NEUTROPHILS (test code = 1008) 67.7 % LYMPHOCYTES (test code = 1010) 21.4 % MONOCYTES (test code = 1011) 7.0 % EOSINOPHILS (test code = 1012) 3.2 % BASOPHILS (test code = 1013) 0.7 % PLATELET COUNT (test code = 1015) 225 K/UL Sammy Miller RickeyHEMOGLOBIN [id number] 00:00:00* Test Item Value Reference Range Interpretation Comme nts HEMOGLOBIN A1c (test code = 60953) 5.3 % Sammy LangCOMPREHENSIVE METABOLIC [id number] 00:00:00* Test Item Value Reference Range Interpretation Comme nts GLUCOSE (test code = 2217) 96 MG/DL BUN (test code = 2208) 12 MG/DL CREATININE (test code = 2214) 1.11 MG/DL eGFR AMER. (test cod e = 03430) 88 ML/MIN/1.73 eGFR NON- AMER. (test code = 75152) 76 ML/MIN/1.73 CALC BUN/CREAT (test code = 2235) 11 RATIO SODIUM (test code = 2231) 141 MEQ/L POTASSIUM (test code = 2228) 4.3 MEQ/L CHLORIDE (test code = 2215) 98 MEQ/L CARBON DIOXIDE (test code = 2206) 28 MEQ/L CALCIUM (test code = 2209) 10.0 MG/DL PROTEIN, TOTAL (test code = 2229) 8.1 G/DL ALBUMIN (test code = 2201) 5.0 G/DL CALC GLOBULIN (test code = 2240) 3.1 G/DL CALC A/G RATIO (test code = 2234) 1.6 RATIO BILIRUBIN, TOTAL (test code = 2207) 0.8 MG/DL ALKALINE PHOSPHATASE (test code = 2204) 90 U/L AST (test code = 2218) 21 U/L ALT (test code = 2219) 20 U/L Sammy LangLIPID [id number] 00:00:00* Test Item Value Reference Range Interpretation Comme nts CHOLESTEROL (test code = 2210) 217 MG/DL TRIGLYCERIDES (test code = 2232) 185 MG/DL HDL CHOLESTEROL (test code = 2220) 26 MG/DL CALC LDL CHOL (test code = 2237) 154 MG/DL RISK RATIO LDL/HDL (test cod e = 2238) 5.92 RATIO Sammy LangHEMOGLOBIN [id number] 00:00:00* Test Item Value Reference Range Interpretation Comme nts HEMOGLOBIN A1c (test code = 26079) 5.3 % CBC W/AUTO [id number] 00:00:00* Test Item Value Reference Range Interpretation Comme nts WBC (test code = 1001) 7.5 K/UL RBC (test code = 1002) 5.21 M/UL HEMOGLOBIN (test code = 1003) 16.0 G/DL HEMATOCRIT (test code = 1004) 45.8 % MCV (test code = 1005) 87.9 fL MCH (test code = 1006) 30.7 PG MCHC (test code = 1007) 34.9 G/DL RDW (test code = 1038) 12.4 % NEUTROPHILS (test code = 1008) 67.7 % LYMPHOCYTES (test code = 1010) 21.4 % MONOCYTES (test code = 1011) 7.0 % EOSINOPHILS (test code = 1012) 3.2 % BASOPHILS (test code = 1013) 0.7 % PLATELET COUNT (test code = 1015) 225 K/UL Sammy Miller RickeyHEMOGLOBIN [id number] 00:00:00* Test Item Value Reference Range Interpretation Comme nts HEMOGLOBIN A1c (test code = 81550) 5.3 % Sammy Angela RickeyCOMPREHENSIVE METABOLIC [id number] 00:00:00* Test Item Value Reference Range Interpretation Comme nts GLUCOSE (test code = 2217) 96 MG/DL BUN (test code = 2208) 12 MG/DL CREATININE (test code = 2214) 1.11 MG/DL eGFR AMER. (test cod e = 55239) 88 ML/MIN/1.73 eGFR NON- AMER. (test code = 39229) 76 ML/MIN/1.73 CALC BUN/CREAT (test code = 2235) 11 RATIO SODIUM (test code = 2231) 141 MEQ/L POTASSIUM (test code = 2228) 4.3 MEQ/L CHLORIDE (test code = 2215) 98 MEQ/L CARBON DIOXIDE (test code = 2206) 28 MEQ/L CALCIUM (test code = 2209) 10.0 MG/DL PROTEIN, TOTAL (test code = 2229) 8.1 G/DL ALBUMIN (test code = 2201) 5.0 G/DL CALC GLOBULIN (test code = 2240) 3.1 G/DL CALC A/G RATIO (test code = 2234) 1.6 RATIO BILIRUBIN, TOTAL (test code = 2207) 0.8 MG/DL ALKALINE PHOSPHATASE (test code = 2204) 90 U/L AST (test code = 2218) 21 U/L ALT (test code = 2219) 20 U/L Sammy LangLIPID [id number] 00:00:00* Test Item Value Reference Range Interpretation Comme nts CHOLESTEROL (test code = 2210) 217 MG/DL TRIGLYCERIDES (test code = 2232) 185 MG/DL HDL CHOLESTEROL (test code = 2220) 26 MG/DL CALC LDL CHOL (test code = 2237) 154 MG/DL RISK RATIO LDL/HDL (test cod e = 2238) 5.92 RATIO Sammy LangCBC W/AUTO [id number] 00:00:00* Test Item Value Reference Range Interpretation Comme nts WBC (test code = 1001) 7.5 K/UL RBC (test code = 1002) 5.21 M/UL HEMOGLOBIN (test code = 1003) 16.0 G/DL HEMATOCRIT (test code = 1004) 45.8 % MCV (test code = 1005) 87.9 fL MCH (test code = 1006) 30.7 PG MCHC (test code = 1007) 34.9 G/DL RDW (test code = 1038) 12.4 % NEUTROPHILS (test code = 1008) 67.7 % LYMPHOCYTES (test code = 1010) 21.4 % MONOCYTES (test code = 1011) 7.0 % EOSINOPHILS (test code = 1012) 3.2 % BASOPHILS (test code = 1013) 0.7 % PLATELET COUNT (test code = 1015) 225 K/UL Sammy LangHEMOGLOBIN [id number] 00:00:00* Test Item Value Reference Range Interpretation Comme stephen HEMOGLOBIN A1c (test code = 44256) 5.3 % Sammy LangCOMPREHENSIVE METABOLIC [id number] 00:00:00* Test Item Value Reference Range Interpretation Comme nts GLUCOSE (test code = 2217) 96 MG/DL BUN (test code = 2208) 12 MG/DL CREATININE (test code = 2214) 1.11 MG/DL eGFR AMER. (test cod e = 92293) 88 ML/MIN/1.73 eGFR NON- AMER. (test code = 86545) 76 ML/MIN/1.73 CALC BUN/CREAT (test code = 2235) 11 RATIO SODIUM (test code = 2231) 141 MEQ/L POTASSIUM (test code = 2228) 4.3 MEQ/L CHLORIDE (test code = 2215) 98 MEQ/L CARBON DIOXIDE (test code = 2206) 28 MEQ/L CALCIUM (test code = 2209) 10.0 MG/DL PROTEIN, TOTAL (test code = 2229) 8.1 G/DL ALBUMIN (test code = 2201) 5.0 G/DL CALC GLOBULIN (test code = 2240) 3.1 G/DL CALC A/G RATIO (test code = 2234) 1.6 RATIO BILIRUBIN, TOTAL (test code = 2207) 0.8 MG/DL ALKALINE PHOSPHATASE (test code = 2204) 90 U/L AST (test code = 2218) 21 U/L ALT (test code = 2219) 20 U/L Sammy LangCOMPREHENSIVE METABOLIC [id number] 00:00:00* Test Item Value Reference Range Interpretation Comme nts GLUCOSE (test code = 2217) 96 MG/DL BUN (test code = 2208) 12 MG/DL CREATININE (test code = 2214) 1.11 MG/DL eGFR AMER. (test cod e = 08897) 88 ML/MIN/1.73 eGFR NON- AMER. (test code = 41966) 76 ML/MIN/1.73 CALC BUN/CREAT (test code = 2235) 11 RATIO SODIUM (test code = 2231) 141 MEQ/L POTASSIUM (test code = 2228) 4.3 MEQ/L CHLORIDE (test code = 2215) 98 MEQ/L CARBON DIOXIDE (test code = 2206) 28 MEQ/L CALCIUM (test code = 2209) 10.0 MG/DL PROTEIN, TOTAL (test code = 2229) 8.1 G/DL ALBUMIN (test code = 2201) 5.0 G/DL CALC GLOBULIN (test code = 2240) 3.1 G/DL CALC A/G RATIO (test code = 2234) 1.6 RATIO BILIRUBIN, TOTAL (test code = 2207) 0.8 MG/DL ALKALINE PHOSPHATASE (test code = 2204) 90 U/L AST (test code = 2218) 21 U/L ALT (test code = 2219) 20 U/L LIPID [id number] 00:00:00* Test Item Value Reference Range Interpretation Comme nts CHOLESTEROL (test code = 2210) 217 MG/DL TRIGLYCERIDES (test code = 2232) 185 MG/DL HDL CHOLESTEROL (test code = 2220) 26 MG/DL CALC LDL CHOL (test code = 2237) 154 MG/DL RISK RATIO LDL/HDL (test cod e = 2238) 5.92 RATIO Sammy LangCBC W/AUTO [id number] 00:00:00* Test Item Value Reference Range Interpretation Comme nts WBC (test code = 1001) 7.5 K/UL RBC (test code = 1002) 5.21 M/UL HEMOGLOBIN (test code = 1003) 16.0 G/DL HEMATOCRIT (test code = 1004) 45.8 % MCV (test code = 1005) 87.9 fL MCH (test code = 1006) 30.7 PG MCHC (test code = 1007) 34.9 G/DL RDW (test code = 1038) 12.4 % NEUTROPHILS (test code = 1008) 67.7 % LYMPHOCYTES (test code = 1010) 21.4 % MONOCYTES (test code = 1011) 7.0 % EOSINOPHILS (test code = 1012) 3.2 % BASOPHILS (test code = 1013) 0.7 % PLATELET COUNT (test code = 1015) 225 K/UL Sammy LangHEMOGLOBIN [id number] 00:00:00* Test Item Value Reference Range Interpretation Comme nts HEMOGLOBIN A1c (test code = 57864) 5.3 % Sammy LangCOMPREHENSIVE METABOLIC [id number] 00:00:00* Test Item Value Reference Range Interpretation Comme nts GLUCOSE (test code = 2217) 96 MG/DL BUN (test code = 2208) 12 MG/DL CREATININE (test code = 2214) 1.11 MG/DL eGFR AMER. (test cod e = 36572) 88 ML/MIN/1.73 eGFR NON- AMER. (test code = 71909) 76 ML/MIN/1.73 CALC BUN/CREAT (test code = 2235) 11 RATIO SODIUM (test code = 2231) 141 MEQ/L POTASSIUM (test code = 2228) 4.3 MEQ/L CHLORIDE (test code = 2215) 98 MEQ/L CARBON DIOXIDE (test code = 2206) 28 MEQ/L CALCIUM (test code = 2209) 10.0 MG/DL PROTEIN, TOTAL (test code = 2229) 8.1 G/DL ALBUMIN (test code = 2201) 5.0 G/DL CALC GLOBULIN (test code = 2240) 3.1 G/DL CALC A/G RATIO (test code = 2234) 1.6 RATIO BILIRUBIN, TOTAL (test code = 2207) 0.8 MG/DL ALKALINE PHOSPHATASE (test code = 2204) 90 U/L AST (test code = 2218) 21 U/L ALT (test code = 2219) 20 U/L Sammy LangLIPID [id number] 00:00:00* Test Item Value Reference Range Interpretation Comme nts CHOLESTEROL (test code = 2210) 217 MG/DL TRIGLYCERIDES (test code = 2232) 185 MG/DL HDL CHOLESTEROL (test code = 2220) 26 MG/DL CALC LDL CHOL (test code = 2237) 154 MG/DL RISK RATIO LDL/HDL (test cod e = 2238) 5.92 RATIO Sammy LangCBC W/AUTO [id number] 00:00:00* Test Item Value Reference Range Interpretation Comme nts WBC (test code = 1001) 7.5 K/UL RBC (test code = 1002) 5.21 M/UL HEMOGLOBIN (test code = 1003) 16.0 G/DL HEMATOCRIT (test code = 1004) 45.8 % MCV (test code = 1005) 87.9 fL MCH (test code = 1006) 30.7 PG MCHC (test code = 1007) 34.9 G/DL RDW (test code = 1038) 12.4 % NEUTROPHILS (test code = 1008) 67.7 % LYMPHOCYTES (test code = 1010) 21.4 % MONOCYTES (test code = 1011) 7.0 % EOSINOPHILS (test code = 1012) 3.2 % BASOPHILS (test code = 1013) 0.7 % PLATELET COUNT (test code = 1015) 225 K/UL Sammy LangHEMOGLOBIN [id number] 00:00:00* Test Item Value Reference Range Interpretation Comme nts HEMOGLOBIN A1c (test code = 07289) 5.3 % Sammy LangCOMPREHENSIVE METABOLIC [id number] 00:00:00* Test Item Value Reference Range Interpretation Comme nts GLUCOSE (test code = 2217) 96 MG/DL BUN (test code = 2208) 12 MG/DL CREATININE (test code = 2214) 1.11 MG/DL eGFR AMER. (test cod e = 71917) 88 ML/MIN/1.73 eGFR NON- AMER. (test code = 64007) 76 ML/MIN/1.73 CALC BUN/CREAT (test code = 2235) 11 RATIO SODIUM (test code = 2231) 141 MEQ/L POTASSIUM (test code = 2228) 4.3 MEQ/L CHLORIDE (test code = 2215) 98 MEQ/L CARBON DIOXIDE (test code = 2206) 28 MEQ/L CALCIUM (test code = 2209) 10.0 MG/DL PROTEIN, TOTAL (test code = 2229) 8.1 G/DL ALBUMIN (test code = 2201) 5.0 G/DL CALC GLOBULIN (test code = 2240) 3.1 G/DL CALC A/G RATIO (test code = 2234) 1.6 RATIO BILIRUBIN, TOTAL (test code = 2207) 0.8 MG/DL ALKALINE PHOSPHATASE (test code = 2204) 90 U/L AST (test code = 2218) 21 U/L ALT (test code = 2219) 20 U/L Sammy LangLIPID [id number] 00:00:00* Test Item Value Reference Range Interpretation Comme nts CHOLESTEROL (test code = 2210) 217 MG/DL TRIGLYCERIDES (test code = 2232) 185 MG/DL HDL CHOLESTEROL (test code = 2220) 26 MG/DL CALC LDL CHOL (test code = 2237) 154 MG/DL RISK RATIO LDL/HDL (test cod e = 2238) 5.92 RATIO Sammy LangCBC W/AUTO [id number] 00:00:00* Test Item Value Reference Range Interpretation Comme nts WBC (test code = 1001) 7.5 K/UL RBC (test code = 1002) 5.21 M/UL HEMOGLOBIN (test code = 1003) 16.0 G/DL HEMATOCRIT (test code = 1004) 45.8 % MCV (test code = 1005) 87.9 fL MCH (test code = 1006) 30.7 PG MCHC (test code = 1007) 34.9 G/DL RDW (test code = 1038) 12.4 % NEUTROPHILS (test code = 1008) 67.7 % LYMPHOCYTES (test code = 1010) 21.4 % MONOCYTES (test code = 1011) 7.0 % EOSINOPHILS (test code = 1012) 3.2 % BASOPHILS (test code = 1013) 0.7 % PLATELET COUNT (test code = 1015) 225 K/UL Sammy LangHEMOGLOBIN [id number] 00:00:00* Test Item Value Reference Range Interpretation Comme nts HEMOGLOBIN A1c (test code = 64010) 5.3 % Sammy Miller AustinLIPID [id number] 00:00:00* Test Item Value Reference Range Interpretation Comme nts CHOLESTEROL (test code = 2210) 217 MG/DL TRIGLYCERIDES (test code = 2232) 185 MG/DL HDL CHOLESTEROL (test code = 2220) 26 MG/DL CALC LDL CHOL (test code = 2237) 154 MG/DL RISK RATIO LDL/HDL (test cod e = 2238) 5.92 RATIO COMPREHENSIVE METABOLIC [id number] 00:00:00* Test Item Value Reference Range Interpretation Comme nts GLUCOSE (test code = 2217) 96 MG/DL BUN (test code = 2208) 12 MG/DL CREATININE (test code = 2214) 1.11 MG/DL eGFR AMER. (test cod e = 76992) 88 ML/MIN/1.73 eGFR NON- AMER. (test code = 92510) 76 ML/MIN/1.73 CALC BUN/CREAT (test code = 2235) 11 RATIO SODIUM (test code = 2231) 141 MEQ/L POTASSIUM (test code = 2228) 4.3 MEQ/L CHLORIDE (test code = 2215) 98 MEQ/L CARBON DIOXIDE (test code = 2206) 28 MEQ/L CALCIUM (test code = 2209) 10.0 MG/DL PROTEIN, TOTAL (test code = 2229) 8.1 G/DL ALBUMIN (test code = 2201) 5.0 G/DL CALC GLOBULIN (test code = 2240) 3.1 G/DL CALC A/G RATIO (test code = 2234) 1.6 RATIO BILIRUBIN, TOTAL (test code = 2207) 0.8 MG/DL ALKALINE PHOSPHATASE (test code = 2204) 90 U/L AST (test code = 2218) 21 U/L ALT (test code = 2219) 20 U/L Sammy LangLIPID [id number] 00:00:00* Test Item Value Reference Range Interpretation Comme nts CHOLESTEROL (test code = 2210) 217 MG/DL TRIGLYCERIDES (test code = 2232) 185 MG/DL HDL CHOLESTEROL (test code = 2220) 26 MG/DL CALC LDL CHOL (test code = 2237) 154 MG/DL RISK RATIO LDL/HDL (test cod e = 2238) 5.92 RATIO Sammy LangCBC W/AUTO [id number] 00:00:00* Test Item Value Reference Range Interpretation Comme nts WBC (test code = 1001) 7.5 K/UL RBC (test code = 1002) 5.21 M/UL HEMOGLOBIN (test code = 1003) 16.0 G/DL HEMATOCRIT (test code = 1004) 45.8 % MCV (test code = 1005) 87.9 fL MCH (test code = 1006) 30.7 PG MCHC (test code = 1007) 34.9 G/DL RDW (test code = 1038) 12.4 % NEUTROPHILS (test code = 1008) 67.7 % LYMPHOCYTES (test code = 1010) 21.4 % MONOCYTES (test code = 1011) 7.0 % EOSINOPHILS (test code = 1012) 3.2 % BASOPHILS (test code = 1013) 0.7 % PLATELET COUNT (test code = 1015) 225 K/UL Sammy LangHEMOGLOBIN [id number] 00:00:00* Test Item Value Reference Range Interpretation Comme nts HEMOGLOBIN A1c (test code = 33562) 5.3 % Sammy LangCOMPREHENSIVE METABOLIC [id number] 00:00:00* Test Item Value Reference Range Interpretation Comme nts GLUCOSE (test code = 2217) 96 MG/DL BUN (test code = 2208) 12 MG/DL CREATININE (test code = 2214) 1.11 MG/DL eGFR AMER. (test cod e = 75239) 88 ML/MIN/1.73 eGFR NON- AMER. (test code = 54176) 76 ML/MIN/1.73 CALC BUN/CREAT (test code = 2235) 11 RATIO SODIUM (test code = 2231) 141 MEQ/L POTASSIUM (test code = 2228) 4.3 MEQ/L CHLORIDE (test code = 2215) 98 MEQ/L CARBON DIOXIDE (test code = 2206) 28 MEQ/L CALCIUM (test code = 2209) 10.0 MG/DL PROTEIN, TOTAL (test code = 2229) 8.1 G/DL ALBUMIN (test code = 2201) 5.0 G/DL CALC GLOBULIN (test code = 2240) 3.1 G/DL CALC A/G RATIO (test code = 2234) 1.6 RATIO BILIRUBIN, TOTAL (test code = 2207) 0.8 MG/DL ALKALINE PHOSPHATASE (test code = 2204) 90 U/L AST (test code = 2218) 21 U/L ALT (test code = 2219) 20 U/L Sammy LangLIPID [id number] 00:00:00* Test Item Value Reference Range Interpretation Comme nts CHOLESTEROL (test code = 2210) 217 MG/DL TRIGLYCERIDES (test code = 2232) 185 MG/DL HDL CHOLESTEROL (test code = 2220) 26 MG/DL CALC LDL CHOL (test code = 2237) 154 MG/DL RISK RATIO LDL/HDL (test cod e = 2238) 5.92 RATIO Sammy Miller AustinCBC W/AUTO [id number] 00:00:00* Test Item Value Reference Range Interpretation Comme nts WBC (test code = 1001) 7.5 K/UL RBC (test code = 1002) 5.21 M/UL HEMOGLOBIN (test code = 1003) 16.0 G/DL HEMATOCRIT (test code = 1004) 45.8 % MCV (test code = 1005) 87.9 fL MCH (test code = 1006) 30.7 PG MCHC (test code = 1007) 34.9 G/DL RDW (test code = 1038) 12.4 % NEUTROPHILS (test code = 1008) 67.7 % LYMPHOCYTES (test code = 1010) 21.4 % MONOCYTES (test code = 1011) 7.0 % EOSINOPHILS (test code = 1012) 3.2 % BASOPHILS (test code = 1013) 0.7 % PLATELET COUNT (test code = 1015) 225 K/UL aSmmy Miller AustinCBC W/AUTO [id number] 00:00:00* Test Item Value Reference Range Interpretation Comme nts WBC (test code = 1001) 7.5 K/UL RBC (test code = 1002) 5.21 M/UL HEMOGLOBIN (test code = 1003) 16.0 G/DL HEMATOCRIT (test code = 1004) 45.8 % MCV (test code = 1005) 87.9 fL MCH (test code = 1006) 30.7 PG MCHC (test code = 1007) 34.9 G/DL RDW (test code = 1038) 12.4 % NEUTROPHILS (test code = 1008) 67.7 % LYMPHOCYTES (test code = 1010) 21.4 % MONOCYTES (test code = 1011) 7.0 % EOSINOPHILS (test code = 1012) 3.2 % BASOPHILS (test code = 1013) 0.7 % PLATELET COUNT (test code = 1015) 225 K/UL HEMOGLOBIN [id number] 00:00:00* Test Item Value Reference Range Interpretation Comme nts HEMOGLOBIN A1c (test code = 99606) 5.3 % Notes | Date/Time Note Provider Source 2025-06-27 14:54:55 Notified Yaa of test results/recommendations per Dr. Gregg and Yaa verbalized understanding. Nathaly Saunders LVN [facility] 2025-06-15 13:16:05 EMG/NCV: Conclusions: This is a normal study. There is no electrodiagnostic evidence of a mononeuropathies, polyneuropathy, brachial plexopathy or cervical radiculopathy involving the left arm. Additionally, nerve conduction study of the right arm did not reveal any abnormalities. Notes / Recommendations: This test does not rule out a pure sensory radiculopathy. Clinical correlation is recommended. MRI Cspine: IMPRESSION Scattered spondylosis/spondyloarthropathy of the cervical spine as described above that results in mild to moderate spinal canal stenosis and mild to moderate neural foraminal narrowing. C6-C7 posterior annular fissures suspected, this can be an independent source of neck pain. I would say these changes are moderate. PN-NEUROLOGY STAFF [facility] 2025-06-13 15:05:29 Please review MRI C spine and EMG results and advise on plan of care. T [facility] 2025-06-13 13:10:18 Copied from [facility] #[id number]. Topic: Clinical - Medical Advice >> Jun 13, 2025 1:09 PM Patient Fashion Marketer wrote: Reggie Snow is a 60 year old male Pt's sister Yaa is calling to get the results to his last [address] Gregg had ordered for her brother . Please advise Dalia Meng [facility]2025-04-24 10:31:47 Spoke with Yaa and let her know per Dr. Gonzáles, EMG should be completed. Yaa verbalized understanding. [facility]2025-04-24 10:28:39 Reggie Snow is a 59 year old male Sister Yaa returning call for results. [phone] (home) Warm transferred to clinic nurse. Ann ParsonsUniversity [facility]als TriPoint [facility] [id number] 10:21:35 Attempted to contact Leslie. VARMA that I will call again at a later time. T [facility] [id number] 08:53:36 Ok to proceed w EMG and schedule follow up w Dr Gregg to eval results Thanks T [facility] [id number] 13:44:43 Please review MRI C spine and advise on plan of care. Per PHI 01/18/25 : MRI cervical spine to examine the anatomy of the cervical spine for any impingement. If the MRI is negative then we will proceed with an EMG. [facility] [id number] 12:57:29 Reggie Snow is a 59 year old male. Pts sister calling for MRI results. Please advise. Perico Milelr [facility]2025-04-15 00:00:00| Sammy Graham [facility]2025-03-03 14:15:20 Notified Yaa of test results/recommendations per Dr. Gregg and Yaa verbalized understanding. TRUCTION RIGGER Nathaly Saunders [facility]2025-03-03 09:15:42 Attempted to contact pt. AVANI that I will call again at a later time. [place] [id number] 16:43:53 No focal consolidation is identified. No pleural effusion or pneumothorax is seen. The cardiomediastinal silhouette is unremarkable. No acute osseous abnormalities. IMPRESSION No acute cardiopulmonary process. [facility] PN-NEUROLOGY [facility]2025-02-27 14:24:05 Dr. Gregg, please review Xray results and advise. [place] [id number] 13:29:52 Reggie Snow is a 59 year old male Pts sister calling in regards to xray done on 01/18/25. Pt is asking when will they receive the results. Please advise. O López [facility]2025-02-17 00:00:00| [facility]2025-01-17 00:00:00| [facility]2024-12-17 00:00:00| [facility]2024-11-26 00:00:00| [facility]2024-11-06 00:00:00| [facility]2024-10-15 00:00:00| [facility]2024-09-24 00:00:00| [facility]2024-09-04 00:00:00| [facility]2024-08-29 00:00:00 [facility]2024-05-21 00:00:00 [facility]2024-02-21 00:00:00 [facility]
[2025-07-20] MEDS ORDERED: DERMABOND SKIN ADHESIVE TOP ONE (14:37)
[2025-07-20] MEDS ORDERED: ONDANSETRON 4 MG (ODT) TAB ONE (14:37)
[2025-07-20] MEDS ORDERED: HYDROCODONE/APAP 5/325 MG TAB ONE (14:37)
[2025-07-20] MEDS ORDERED: LIDOCAINE 1% MPF 5 ML VIAL ONE (14:37)
[2025-07-20] MEDS ORDERED: TDAP (DIPHTH,PERTUSS(ACELL),TET VAC) 0.5 ML VIAL IMVAC ONE (14:38)
--- NOTE | 2025-07-20 16:24 | EDPHYS ---
Physician Documentation [facility] Name: Reggie Snow Age: 60 yrs Sex: Male : 1965 Arrival Date: 07/20/2025 Time: 13:15 Bed 9 Private MD: ED Physician Nestor Phillips HPI: 07/20 14:31 This 60 yrs old Male presents to ER via Ambulatory with complaints of Finger Injury. sb4 14:31 Sustained laceration to left thumb and index finger while using a scraper. His sister sb4 cleaned and dressed the wounds. Is unsure if his tetanus shot is up-to-date. Declines any other injuries. Is not on any blood thinners. Historical: - Allergies: 13:34 TETRACYCLINES; ll1 13:34 Azithromycin; ll1 - PMHx: 13:34 Anxiety; Hypertension; ll1 - PSHx: 13:34 None; ll1 - Immunization history:: Adult Immunizations up to date. - Infectious Disease History:: Denies. - Social history:: Smoking status: Patient denies any tobacco usage or history of. ROS: 14:32 Constitutional: Negative for fever, chills, and weight loss, sb4 14:32 Skin: Positive for laceration(s), of the dorsal aspect of proximal phalanx of left thumb and dorsal aspect of middle phalanx of left index finger, 14:32 All other systems are negative, Exam: 14:32 Constitutional: This is a well developed, well nourished patient who is awake, alert, sb4 and in no acute distress. Head/Face: Normocephalic, atraumatic. Eyes: Extra-ocular motions intact. Periorbital areas with no swelling, redness, or edema. ENT: Mucous membranes moist. Respiratory: No increased work of breathing, no retractions or nasal flaring. 14:32 Skin: injury, laceration(s), the wound is approximately 1 cm(s), with a depth of .5 cm(s), of the dorsal aspect of proximal phalanx of left thumb, the second wound is approximately 4 cm(s), with a depth of .5 cm(s), of the dorsal aspect of middle phalanx of left index finger, that can be described as clean, no foreign body, linear, with mild bleeding, Vital Signs: 13:34 BP 114 / 79; Pulse 68; Resp 17; Temp 97.8; Pulse Ox 99% ; Weight 86.18 kg; Height 6 ft. ll1 2 in. ; Pain 6/10; 16:41 BP 119 / 75; Pulse 72; Resp 16; Pulse Ox 100% on R/A; dd2 13:34 Body Mass Index 24.39 (86.18 kg, 187.96 cm) ll1 13:34 Pain Scale: Adult ll1 Michelle Coma Score: 14:30 Eye Response: spontaneous(4). Motor Response: obeys commands(6). Verbal Response: dd2 oriented(5). Total: 15. Laceration: 16:32 Wound Repair of 5cm ( 2.0in ) subcutaneous laceration to dorsal aspect of middle sb4 phalanx of left index finger. Irregularly shaped.. Distal neuro/vascular/tendon intact. Anesthesia: Local anesthetic administered with 5 mls of 1% lidocaine. Wound prep: Wound irrigation with saline by me, Wound explored moderately, Copious irrigation. Skin closed with 5 5-0 Prolene using simple sutures and sterile technique. Dressed with non-adherent dressing. Patient tolerated well. 16:33 Wound Repair of 1cm ( 0.4in ) subcutaneous laceration to dorsal aspect of proximal sb4 phalanx of left thumb. Distal neuro/vascular/tendon intact. Wound prep: Wound irrigation with saline by me, Wound explored, Copious irrigation. Skin closed with thin layer Adhesive skin closure using Dermabond. MDM: 13:24 Medical Screening Exam initiated sb4 16:33 Data reviewed: vital signs, nurses notes, and as a result, I will discharge patient. sb4 Test considered but Not performed: X-ray: not indicated, superficial lacerations, no concern for retained foreign body. Care significantly affected by the following chronic conditions: Hypertension. Counseling: I had a detailed discussion with the patient and/or guardian regarding the historical points, exam findings, and any diagnostic results supporting the discharge/admit diagnosis, the need for outpatient follow up, for suture removal in 1 week, to return to the emergency department if symptoms worsen or persist or if there are any questions or concerns that arise at home. 07/20 14:31 Order name: Dermabond; Complete Time: 14:44 sb4 07/20 16:23 Order name: Finger Splint; Complete Time: 16:42 sb4 Administered Medications: 14:44 Drug: Boostrix Tdap IM 0.5 ml IM once; as a single dose Route: IM; Site: right deltoid; dd2 15:14 Follow up: Response: No adverse reaction dd2 14:44 Drug: HYDROcodone-acetaminophen PO 5 mg-325 mg 1 tabs PO once Route: PO; dd2 15:14 Follow up: Response: No adverse reaction dd2 14:44 Drug: Ondansetron PO 4 mg PO once Route: PO; dd2 15:14 Follow up: Response: No adverse reaction dd2 16:28 Drug: Lidocaine Infiltration (1 %) 5 ml 5 ml Infiltration once; to bedside Volume: 5 dd2 ml; Route: Infiltration; Site: wound; 16:42 Follow up: Response: No adverse reaction dd2 Disposition: 07/21 13:50 Co-signature as Attending Physician, Nesotr Phillips MD I agree with the assessment and dolly plan of care. Disposition Summary: 07/20/25 16:23 Discharge Ordered Notes: Location: Home sb4 Problem: new sb4 Symptoms: have improved sb4 Condition: Stable sb4 Diagnosis - Laceration without foreign body of left index finger without damage to nail sb4 Followup: sb4 - With: Private Physician - When: 1 week - Reason: Recheck today's complaints, Staple/Suture removal, Re-evaluation by your physician Discharge Instructions: - Discharge Summary Sheet sb4 - Laceration Care, Adult, [id number] sb4 Forms: - Antibiotic Education sb4 - Patient Portal Instructions sb4 - Leadership Thank You Letter sb4 Prescriptions: - Cephalexin 500 mg Oral Capsule - take 1 capsule ORAL route every 12 hours for 10 days; 20 capsule; Refills: 0, sb4 Product Selection Permitted Signatures: Nestor Phillips MD MD cha Lewis, Lynsay RN RN ll1 Eli Cortez PA-C PA-C sb4 DAVIS, DIANA, RN RN dd2 Corrections: (The following items were deleted from the chart) 07/20 14:32 14:31 Sustained laceration to. sb4 sb4
--- NOTE | 2025-07-20 16:24 | ER ---
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 Bleeding controlled with dressing in place. Coronavirus screen: Client denies travel out of the [place] in the last 14 days. At this time, the client does not indicate any symptoms associated with coronavirus-19. Ebola Screen: Patient denies travel to an Ebola-affected area in the 21 days before illness onset. Initial Sepsis Screen: Does the patient meet any 2 criteria? No. Patient's initial sepsis screen is negative. Does the patient have a suspected source of infection? No. Patient's initial sepsis screen is negative. Risk Assessment: Do you want to hurt yourself or someone else? Patient reports no desire to harm self or others. Onset of symptoms was July 20, 2025. 13:34 Method Of Arrival: Ambulatory ll1 13:34 Acuity: ERICK 4 ll1 Historical: - Allergies: 13:34 TETRACYCLINES; ll1 13:34 Azithromycin; ll1 - PMHx: 13:34 Anxiety; Hypertension; ll1 - PSHx: 13:34 None; ll1 - Immunization history:: Adult Immunizations up to date. - Infectious Disease History:: Denies. - Social history:: Smoking status: Patient denies any tobacco usage or history of. Screenin:30 [facility] ED Fall Risk Assessment (Adult) History of falling in the last 3 months, dd2 including since admission No falls in past 3 months (0 pts) Confusion or Disorientation No (0 pts) Intoxicated or Sedated No (0 pts) Impaired Gait No (0 pts) Mobility Assist Device Used No (0 pt) Altered Elimination No (0 pt) Score/Fall Risk Level 0 - 2 = Low Risk Oriented to surroundings, Maintained a safe environment, Educated pt \T\ family on fall prevention, incl call for assistance when getting out of bed, Assessed \T\ reinforced patient's understanding of fall precautions, Hourly rounding (assess needs \T\ fall precautionary measures) done. Abuse screen: Denies threats or abuse. Denies injuries from another. Nutritional screening: No deficits noted. Tuberculosis screening: No symptoms or risk factors identified. Assessment: 14:30 General: Appears in no apparent distress. Behavior is calm, cooperative, appropriate dd2 for age. Pain: Complains of pain in dorsal aspect of middle phalanx of left index finger and dorsal aspect of proximal phalanx of left thumb Pain currently is 5 out of 10 on a pain scale. Neuro: No deficits noted. Cardiovascular: No deficits noted. Respiratory: No deficits noted. GI: No deficits noted. No signs and/or symptoms were reported involving the gastrointestinal system. : No deficits noted. No signs and/or symptoms were reported regarding the genitourinary system. EENT: No deficits noted. No signs and/or symptoms were reported regarding the EENT system. Derm: Wound noted dorsal aspect of middle phalanx of left index finger and dorsal aspect of proximal phalanx of left thumb Wound is LACERATION. Musculoskeletal: Circulation, motion, and sensation intact. Range of motion: intact in all extremities. Injury Description: Laceration sustained to dorsal aspect of middle phalanx of left index finger and dorsal aspect of proximal phalanx of left thumb is 2.6 to 7.5 cm long, bleeding moderately, moderate bleeding noted at this time. Vital Signs: 13:34 BP 114 / 79; Pulse 68; Resp 17; Temp 97.8; Pulse Ox 99% ; Weight 86.18 kg; Height 6 ft. ll1 2 in. ; Pain 6/10; 16:41 BP 119 / 75; Pulse 72; Resp 16; Pulse Ox 100% on R/A; dd2 13:34 Body Mass Index 24.39 (86.18 kg, 187.96 cm) ll1 13:34 Pain Scale: Adult ll1 Beverly Coma Score: 14:30 Eye Response: spontaneous(4). Motor Response: obeys commands(6). Verbal Response: dd2 oriented(5). Total: 15. ED Course: 13:18 Patient arrived in ED. im 13:22 Eli Cortez PA-C is PHCP. sb4 13:22 Nestor Phillips MD is Attending Physician. sb4 13:34 Arm band placed on. ll1 13:36 Triage completed. ll1 14:30 Patient has correct armband on for positive identification. Bed in low position. Call dd2 light in reach. Client placed on continuous cardiac and pulse oximetry monitoring. NIBP monitoring applied. Door closed. Noise minimized. Pillow given. PO fluids given. Verbal reassurance given. 14:30 Patient did not have IV access during this emergency room visit. Patient maintains SpO2 dd2 saturation greater than 95% on room air. 16:39 Assist provider with laceration repair on dorsal aspect of middle phalanx of left index dd2 finger and dorsal aspect of proximal phalanx of left thumb that was between 2.6 to 7.5 cm using sutures. Set up tray. Performed by Eli Cortez PA-C Dressed with 4X4s, Patient tolerated well. Aluminum finger splint applied to dorsal aspect of middle phalanx of left index finger. 16:48 Provided Education on: d/c education. dd2 Administered Medications: 14:44 Drug: Boostrix Tdap IM 0.5 ml IM once; as a single dose Route: IM; Site: right deltoid; dd2 15:14 Follow up: Response: No adverse reaction dd2 14:44 Drug: HYDROcodone-acetaminophen PO 5 mg-325 mg 1 tabs PO once Route: PO; dd2 15:14 Follow up: Response: No adverse reaction dd2 14:44 Drug: Ondansetron PO 4 mg PO once Route: PO; dd2 15:14 Follow up: Response: No adverse reaction dd2 16:28 Drug: Lidocaine Infiltration (1 %) 5 ml 5 ml Infiltration once; to bedside Volume: 5 dd2 ml; Route: Infiltration; Site: wound; 16:42 Follow up: Response: No adverse reaction dd2 Medication: 14:30 VIS not applicable for this client. dd2 Outcome: 16:23 Discharge ordered by . sb4 16:48 Discharged to home ambulatory, dd2 16:48 Condition: good 16:48 Discharge instructions given to patient, Instructed on discharge instructions, follow up and referral plans. medication usage, Demonstrated understanding of instructions, follow-up care, medications, Prescriptions given X 1, 16:49 Patient left the ED. dd2 Signatures: Jessica Landon RN RN ll1 Eli Cortez PA-C PA-C sb4 Bekah Ponce DIANA, RN RN dd2
[2025-07-21 00:32] VITALS: TEMP 97.8
[2025-07-21 00:34] VITALS: BP 119/75; O2SAT 100
== END 2025-07-20 16:49 | disposition home or self-care (01) ==
LOC: ER 13:15
DX: S61.211A Laceration without foreign body of left index finger without damage to nail, initial encounter (principal); S61.012A Laceration without foreign body of left thumb without damage to nail, initial encounter; Z23 Encounter for immunization
CPT/HCPCS: 90715; 12042; Q0162; J2003